=== PATIENT | male | born 1995 | race Caucasian/White ===

== ENCOUNTER 2019-12-31 14:35 | Emergency (ER) | payer MEDICAID, SELFPAY ==
[2019-12-31 18:40] VITALS: BP 137/96; PULSE 125; RESP 18; TEMP 37.1; O2SAT 99
[2019-12-31 18:53] VITALS: BP 112/70; PULSE 80; RESP 18; TEMP 37.3; O2SAT 99; BMI 32.8
--- NOTE | 2019-12-31 20:09 | ED.MALEGU ---
HPI - Male Genitourinary General Chief complaint: Urogenital-Male Stated complaint: penis infection Time Seen by Provider: 12/31/19 20:09 Source: patient Mode of arrival: ambulatory Limitations: no limitations History of Present Illness HPI Narrative: states pain discomfort to the glans of the penis and dry skin around the foreskin. States aside from masturbation he is not sexually active. No urethral discharge, testicular pain or swelling. No lesion. No erythema. States the gland initially had some curd-like discharge between the glans and the foreskin but that improved after his mother gave him hydrocortisone which he has been applying for the past 2 days. Onset (ago): day(s) ( Five days) Related Data Previous Rx's Medication Instructions Recorded hydrocortisone 1 applic TOPICAL BID PRN #28 g 12/31/19 Allergies Allergy/AdvReac Type Severity Reaction Status Date / Time SEASONAL ALLERGIES Allergy Unknown UNKNOWN Uncoded 12/31/19 18:40 Review of Systems Review of Systems: Constitutional: No Weight loss, No Fever, No Chills, No Night Sweats, No Fatigue, No Malaise ENT/Mouth: No Hearing loss, No Ear Pain, No Nasal Congestion, No Sinus Pain, No Hoarseness, No sore throat, No Rhinorrhea, No Swallowing Difficulty Eyes: No Eye Pain, No Swelling, No Redness, No Foreign Body, No Discharge, No Vision Changes Cardiovascular: No Chest Pain, No SOB, No Dyspnea on Exertion, No Orthopnea, No Edema, No Palpitations Respiratory: No Cough, No Sputum, No Wheezing, No Smoke Exposure, No Dyspnea Gastrointestinal: No Nausea, No Vomiting, No Diarrhea, No Constipation, No abdominal Pain, No Hematochezia, No Melena Genitourinary: No Dysuria, No Urinary Frequency, No Hematuria, No Urinary Incontinence, No Urgency, No Flank Pain, No Urinary Flow Changes, No Hesitancy Musculoskeletal: No joint pain, No Myalgias, No Joint Swelling Skin: No Skin Lesions, No rash Neuro: No Weakness, No Numbness, No Paresthesias, No Loss of Consciousness, No Dizziness, No Headache Psych: No Anxiety/Panic, No Depression, No SI/HI/AH/VH, No Social Issues, Heme/Lymph: No Bruising, No Bleeding,No Lymphadenopathy Endocrine: No Polyuria, No Polydipsia, No Temperature Intolerance Yes all other systems are reviewed and are negative PMFSH Past Medical History Attestation statement: The following information was validated with the patient. Medical History (Updated 12/31/19 @ 20:20 by Michael Calderon NP) Depression Schizophrenia Social History Social History Advance Directives: No Advance Directives Information Provided: No Physical Exam Vital Signs: Vital Signs: Vital Signs Temp Pulse Resp BP Pulse Ox 12/31/19 18:53 99.2 F 80 18 112/70 99 12/31/19 18:40 98.7 F 125 H 18 137/96 H 99 Body Mass Index 32.8 Reviewed Const: General: cooperative and healthy appearing; No acute distress or intoxicated appearing Nutritional Appearance: average body habitus Orientation/consciousness: patient oriented x3 HENMT: Head: Yes normal to inspection Ears: hearing grossly normal bilaterally Eyes: General: appearance normal, both eyes and all related structures Visual Magdaleno: normal visual magdaleno by confrontation Chest: Chest palpation & inspection: normal inspection of the chest Resp: Effort & Inspection: normal respiratory effort : General: Yes no CVA tenderness Penis: uncircumcised ( slightly erythematous at the foreskin and when he retracts the gland ) Back/Spine/Pelvis: Back: no CVA tenderness Skin: General skin exam: no rashes or lesions noted Neuro: General: patient oriented x3 Extrem: General: Yes normal to inspection Course Course Course Narrative: AP/ exam consistent with balanitis. Given dose of Diflucan. Will contribute do hygiene/ hydrocortisone at home. Advised to avoid any further masturbation for at least a week and half to 2 weeks until his foreskin improved. No concern for STI and he has not been sexually active with partners. Discharge Plan Discharge Clinical Impression: Balanitis Patient Disposition: Home, Self-Care Instructions: Balanitis (ED) Additional Instructions: hygiene /home care instructions reviewed No masturbation for 2 weeks Topical hydrocortisone cream twice a day for 7 days Return if any concerns or worsening symptoms otherwise schedule follow up with primary care doctor Thank you Prescriptions: New hydrocortisone 1 % cream 1 applic topical BID PRN (Reason: skin irritation) Qty: 28 RF: 1
[2019-12-31] MEDS: Fluconazole 150 MG TABLET PO (20:35)
== END 2019-12-31 20:42 | disposition home or self-care (01) ==
PROVIDERS: Emergency Provider Internal Medicine
DX: N48.1 Balanitis (principal)
CPT/HCPCS: 99283

== ENCOUNTER 2020-07-07 13:44 | Outpatient (REF) | payer MEDICAID, SELFPAY ==
[2020-07-07 14:39] LABS: COVID-19 Test Negative (Negative)
== END 2020-07-07 13:45 | disposition home or self-care (01) ==
LOC: HO.LAB 13:44
PROVIDERS: Visit Provider Internal Medicine
DX: Z20.822 Contact with and (suspected) exposure to COVID-19 (principal)
CPT/HCPCS: 36415; 87635; C9803

== ENCOUNTER 2020-07-14 15:18 | Outpatient (REF) | payer MEDICAID, SELFPAY | END 2020-07-14 15:19 | disposition home or self-care (01) | LOC: HO.LAB 15:18 | PROVIDERS: Visit Provider Internal Medicine | DX: Z20.822 Contact with and (suspected) exposure to COVID-19 (principal) | CPT/HCPCS: C9803; U0003; U0005 ==

== ENCOUNTER 2021-12-03 03:46 | Emergency (ER) | payer MEDICAID, SELFPAY ==
[2021-12-03 04:07] VITALS: BP 142/88; PULSE 88; O2SAT 99
--- NOTE | 2021-12-03 04:16 | ED.PSYCH ---
HPI - Psych General Chief Complaint: Psychiatric Symptoms Stated Complaint: VOLUNTARY CRISIS EVAL PER EMS Time Seen by Provider: 12/03/21 04:17 Source: patient Mode of arrival: EMS Limitations: no limitations History of Present Illness HPI Narrative: wants to talk to crisis, speaking about taoist, holding the bible, making Andrea references complaint: anxiety and hallucinations Onset (ago): day(s) Duration: getting worse History of same: Yes Relieving factors: none Exacerbating factors: none Context: other (schizophrenia) Associated psychiatric symptoms: auditory hallucinations, visual hallucinations and delusions Associated symptoms: denies other symptoms Treatments prior to arrival: none Related Data Previous Rx's Medication Instructions Recorded hydrocortisone 1 % topical cream 1 applic topical BID PRN skin 12/31/19 irritation #28 grams Allergies Allergy/AdvReac Type Severity Reaction Status Date / Time SEASONAL ALLERGIES Allergy Unknown UNKNOWN Uncoded 12/31/19 18:40 Review of Systems Review of Systems: Constitutional : No Fever, No Chills ENT/Mouth : No Ear Pain, No Nasal Congestion, No sore throat Eyes: No Eye Pain, No Swelling, No Redness Cardiovascular : No Chest Pain, No SOB Respiratory : No Cough, No Sputum, No Dyspnea Gastrointestinal : No Nausea, No Vomiting, No Diarrhea, No Hematochezia, No Melena Genitourinary : No Dysuria, No Urinary Frequency, No Hematuria Musculoskeletal : No Myalgias Skin : No Skin Lesions, No rash Neuro : No Weakness, No Numbness, No Paresthesias, No Dizziness, No Headache Psych : positive Anxiety, positive Depression, no SI/HI, pos AH/VH Heme/Lymph: No Lymphadenopathy Endocrine : No Polyuria, No Polydipsia All other systems reviewed and are negative [facility] Past Medical History Attestation statement: The following information was validated with the patient. Medical History Depression Schizophrenia Social History Social History Patient Tobacco Use Status: Never used Tobacco Advance Directives: No Advance Directives Information Provided: No Physical Exam Vital Signs: Vital Signs: Last Vital Signs Temp 98 F 12/03/21 04:17 Pulse 95 12/03/21 04:17 Resp 18 12/03/21 04:17 BP 142/70 H 09/17/22 04:17 Pulse Ox 100 12/03/21 04:17 O2 Del Method 12/03/21 04:17 BMI result Body Mass Index 25.9 Appearance: Alert. Oriented X3. No acute distress. Holding a bible perseverating about people not understanding and suffering. Eyes: Pupils equal, round and reactive to light. ENT: Pharynx normal. Neck: Normal inspection. Neck supple. CVS: Normal heart rate and rhythm. Pulses normal. Respiratory: No respiratory distress. Breath sounds normal. Abdomen: Soft and non-tender. Skin: Skin warm and dry. Normal skin color. Normal skin turgor. Extremities: No lower extremity edema. No calf ttp Neuro: Oriented X 3. No motor deficit. No sensory deficit. CN 2-12 intact Course Course Course Narrative: Physician observation started at 504am Patient placed in physician observation pending N to assess the need for psych admission. At the time observation was started the patient's vitals were stable, patient is alert and oriented, Neuro: nonfocal, CV RRR, Lungs clear MDM - Psych MDM Narrative Medical decision making narrative: 26 yo male with schizophrenia here with c/o being persecuted, AH/VH, being andrea ron - at this time will obtain labs, N consult. Discharge Plan Discharge Clinical Impression: Chronic schizophrenia Patient Disposition: Still a Patient Prescriptions: No Action hydrocortisone 1 % cream 1 applic topical BID PRN (Reason: skin irritation) Qty: 28 1RF
[2021-12-03 04:17] VITALS: BP 142/70; PULSE 95; RESP 18; TEMP 36.6; O2SAT 100; BMI 25.9
[2021-12-03 05:27] LABS: Amphetamine Screen Urine Not Detected (Not Detect); Barbiturates, Urine Not Detected (Not Detect); Benzodiazepines Screen Urine Not Detected (Not Detect); COVID-19 Test Negative (Negative); Cannabinoid Screen Urine Not Detected (Not Detect); Cocaine Screen Urine Not Detected (Not Detect); Fentanyl, urine Not Detected (Not Detect); Opiate Screen Urine Not Detected (Not Detect); Phencyclidine Screen Urine Not Detected (Not Detect)
--- NOTE | 2021-12-03 07:09 | PC.NURSE ---
Report received from RAJI Ward Per night nurse, pt brought in from prison with increased auditory and visual hallucinations and increased pre-occupation with mu-ism concepts. Upon first contact with this pt, this nurse notes he is speaking frequently about Andrea and the bible. Pt speaking with and blessing people walking around. Pt blessed this RN, and stated that he was here to make everything right and safe . Pt walking around but is easily re-directable. Pt stable at this point, will continue to monitor for d/c needs
--- NOTE | 2021-12-03 07:19 | MHC.CARE ---
[employer] sheet submitted
[2021-12-03] MEDS: LORazepam 1 MG TABLET 2 MG PO (07:50)
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
--- NOTE | 2021-12-03 10:07 | PHA.MEDREC ---
Pharmacy Consult ? Medication Reconciliation Pharmacy has completed the medication reconciliation. Patient had a med list with them in file. Cross-referenced with patient. Claim history is outdated compared to med list, however patient attests to taking meds.
[2021-12-03] MEDS: Benztropine Mesylate 1 MG TABLET PO (10:41)
[2021-12-03] MEDS: Loratadine 10 MG TABLET PO (10:41)
[2021-12-03] MEDS: metFORMIN HCl 500 MG TABLET PO (10:41)
[2021-12-03] MEDS: OXcarbazepine 300 MG TABLET PO ×2 (10:41→14:46)
[2021-12-03] MEDS: Perphenazine 8 MG TABLET PO (11:36)
[2021-12-03 15:57] VITALS: RESP 16
--- NOTE | 2021-12-03 16:50 | PC.NURSE ---
Per care team: daniel grijalva is clear to be d/c home to [facility].
== END 2021-12-03 17:04 | disposition home or self-care (01) ==
PROVIDERS: Emergency Provider Emergency Medicine; PCP General Practice
DX: F20.9 Schizophrenia, unspecified (principal); F41.9 Anxiety disorder, unspecified; F32.A Depression, unspecified; Z20.822 Contact with and (suspected) exposure to COVID-19; Z79.899 Other long term (current) drug therapy
CPT/HCPCS: 80307; 87635; 99284; 99285

== ENCOUNTER 2021-12-05 16:57 | Inpatient (IN) | payer OTHER, MEDICAID, SELFPAY ==
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
[2021-12-05 17:31] VITALS: BP 134/93; BP 136/77; PULSE 85; PULSE 86; RESP 16; TEMP 36.4; O2SAT 97; O2SAT 98; BMI 25.0
[2021-12-05 18:39] LABS: MANUAL DIFF FLAG NO
[2021-12-05 18:43] LABS: Basophils Absolute Auto 0.1 X10*3/uL (0.0-0.2); Basophils Percent Auto 0.6 % (0-2); Eosinophils Absolute Auto 0.1 X10*3/uL (0.0-0.4); Eosinophils Percent Auto 1.2 % (0-4); Hematocrit 38.4 % (42.0-52.0); Hemoglobin 13.2 g/dl (14.0-18.0); Imm Gran Abs Auto 0.03 X10*3/uL (0.00-0.03); Imm Gran Pct Auto 0.4 % (0.0-0.4); Lymphocytes Absolute Auto 2.7 X10*3/uL (1.2-4.9); Mean Corpuscular HGB Conc 34.4 g/dl (31.0-36.0); Mean Corpuscular Hemoglobin 29.1 pg (27.0-33.0); Mean Corpuscular Volume 84.6 fL (80.0-98.0); Mean Platelet Volume 8.5 fL (9.4-12.4); Monocytes Absolute Auto 0.7 X10*3/uL (0.1-1.2); Monocytes Percent Auto 8.2 % (2-11); Neutrophils Absolute Auto 4.5 x10*3/uL (2.0-8.3); Neutrophils Percent Auto 55.6 % (45-73); Platelet Count 211 X10*3/uL (160-400); Red Blood Count 4.54 X10*6/uL (4.60-5.80); Red Cell Distribution Width 12.6 % (11.0-16.0)
[2021-12-05 18:56] LABS: COVID-19 Test Positive (Negative)
[2021-12-05 19:03] LABS: Alanine Aminotransferase 20 U/L (0-40); Albumin Level 4.6 g/dL (3.5-5.0); Alkaline Phosphatase 55 U/L (39-117); Anion Gap 14 (12-20); Aspartate Amino Transferase 17 U/L (5-37); Bilirubin Total 0.5 mg/dL (0.0-1.0); Blood Urea Nitrogen 9 mg/dL (9-16); Calcium 9.3 mg/dL (8.4-10.2); Carbon Dioxide 26 mmol/L (22-29); Chloride 96 mmol/L (96-108); Creatinine Clr Calc Pharmacy 138.2; Estimated Glomerular Filt Rate > 60; Ethanol < 10 mg/dL; Glucose Random 114 mg/dL (60-115); Potassium 3.4 mmol/L (3.3-5.1); Sodium 133 mmol/L (135-145); Total Protein 7.3 g/dL (6.5-8.0)
[2021-12-05 19:16] LABS: Amphetamine Screen Urine Not Detected (Not Detect); Barbiturates, Urine Not Detected (Not Detect); Benzodiazepines Screen Urine Not Detected (Not Detect); Cannabinoid Screen Urine Not Detected (Not Detect); Cocaine Screen Urine Not Detected (Not Detect); Fentanyl, urine Not Detected (Not Detect); Opiate Screen Urine Not Detected (Not Detect); Phencyclidine Screen Urine Not Detected (Not Detect)
[2021-12-05 23:16] VITALS: BP 127/64; PULSE 82; RESP 16; TEMP 36.7; O2SAT 99
[2021-12-06] MEDS: LORazepam 1 MG TABLET 2 MG PO ×3 (01:46→22:08)
[2021-12-06] MEDS: OLANZapine 10 MG TABLET PO (01:47)
[2021-12-06] MEDS: HaloperidoL 5 MG TABLET 10 MG PO (05:13)
--- NOTE | 2021-12-06 05:15 | PC.NURSE ---
Patient slept for an hour only, patient is COVID +, patient scream and yells intermittently, thought content grossly paranoid, thought process incoherent and tangential however patient follows direction appropriately/requires constant redirection, Olanzapine 10 mg PO and Ativan 2 mg po administered at 0146 with minimal effect, disposition per [facility] is section 12 inpatient bed search, med rec completed/unable to obtain Invega IM last taken date, pending provider's approval, behavior unpredictable, Haldol 10 mg PO administered at 0513/pending effect, will continue to monitor.
--- NOTE | 2021-12-06 07:44 | PC.NURSE ---
patient appears to remain asleep at present respirations are even and unlabored patiient appears in no distress presently, will continue to monitor for safety.
[2021-12-06 09:16] VITALS: BP 137/85; PULSE 95; RESP 15; TEMP 36.3; O2SAT 100
[2021-12-06] MEDS: Midazolam HCl/PF 2 MG/2 ML VIAL 4 MG IM (11:04)
[2021-12-06 11:24] VITALS: BP 131/76; PULSE 104; RESP 16; TEMP 37; O2SAT 98
[2021-12-06 11:34] VITALS: BP 115/69; PULSE 83; RESP 14; O2SAT 99
[2021-12-06] MEDS: Haloperidol Lactate 5 MG/ML VIAL 10 MG IM (11:34)
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
--- NOTE | 2021-12-06 12:15 | HE.PHANOTE ---
Spoke to Mary ([phone]) who is the clinical coordinator of the [facility], she confirmed pt's last dose of Invega Sustenna was on 11/24/21 and noted we may use her as a contact if needed for anything else.
[2021-12-06 12:21] VITALS: BP 141/64; PULSE 100; RESP 14; O2SAT 100
[2021-12-06] MEDS: Perphenazine 8 MG TABLET PO (12:45)
[2021-12-06] MEDS: HaloperidoL 5 MG TABLET PO ×2 (14:02→22:09)
--- NOTE | 2021-12-06 15:02 | P.CNPS_ITS ---
History of Present Illness Date of Service: t Chief Complaint: section 12 Reason for Consult: Psychosis Sources of Information: patient interviewed, chart reviewed and crisis/core team assessment reviewed HPI Narrative: the patient is a 26-year-old descent male, single, resident of a intermediate who carries a diagnosis of schizophrenia. According to the chart, the patient is on Invega Sustenna monthly and for FENa seen p.o.. Apparently, the patient was noncompliant with his medications for the last week and he decompensated with agitation, psychosis and grandiose delusions. The patient was brought to the emergency room a few days ago and discharged to the intermediate but he came back yesterday with worsening grandiose delusions, agitation, threatening of violence and completely disorganized. On interview the patient stated that he has Minor to take care of all the wishes of the planet, he was intrusive with poor self-awareness, irritable and very disorganized with word salad at times. Past Psychiatric History: Extensive, several admissions into the hospital for psychotic agitation. The patient carries a diagnosis of schizophrenia Medical Evaluation Reviewed: Yes [facility] Medical History Depression Schizophrenia Family History: denies Social History: resident of a intermediate, unable to provide more details since the patient was not cooperative Substance History: denies Trauma History: unknown Diagnostics Vital Signs (24Hr): Vital Signs - 24 hr 12/05/21 17:31 12/05/21 23:16 12/06/21 09:16 Temperature 97.5 F 98.1 F 97.3 F Pulse Rate 85 82 95 Respiratory Rate 16 16 15 Blood Pressure 134/93 H 127/64 137/85 Pulse Oximetry 97 99 100 Oxygen Delivery Method Room Air Room Air Room Air 12/06/21 11:24 12/06/21 11:34 12/06/21 12:21 Temperature 98.6 F Pulse Rate 104 H 83 100 Respiratory Rate 16 14 14 Blood Pressure 131/76 115/69 141/64 H Pulse Oximetry 98 99 100 Oxygen Delivery Method Room Air Room Air Room Air BMI result Body Mass Index 25.0 Labs Results: 12/05/21 18:34 12/05/21 18:34 Labs: Laboratory Results - last 48 hr 12/05/21 12/05/21 12/05/21 18:34 18:34 18:34 WBC 8.0 RBC 4.54 L Hgb 13.2 L Hct 38.4 L MCV 84.6 MCH 29.1 MCHC 34.4 RDW 12.6 Plt Count 211 MPV 8.5 L Immature Gran % (Auto) 0.4 Neut % (Auto) 55.6 Lymph % (Auto) 34.0 [place] % (Auto) 8.2 Eos % (Auto) 1.2 Baso % (Auto) 0.6 Lymph # (Auto) 2.7 [place] # (Auto) 0.7 Eos # (Auto) 0.1 Baso # (Auto) 0.1 Abs Immat Gran (auto) 0.03 Absolute Neuts (auto) 4.5 Absolute Nucleated RBC 0.000 Nucleated RBC % (auto) 0.0 Sodium 133 L Potassium 3.4 Chloride 96 Carbon Dioxide 26 Anion Gap 14 BUN 9 Creatinine 0.79 Estim Creat Clear Calc 138.2 Estimated GFR > 60 Random Glucose 114 Calcium 9.3 Total Bilirubin 0.5 AST 17 ALT 20 Alkaline Phosphatase 55 Total Protein 7.3 Albumin 4.6 Urine Opiates Screen Urine Fentanyl Screen Ur Barbiturates Screen Ur Phencyclidine Scrn Ur Amphetamines Screen U Benzodiazepines Scrn Urine Cocaine Screen U Marijuana (THC) Screen Ethyl Alcohol < 10 COVID-19 (MOUNA) Positive A COVID-19 Clin Com See Note 12/05/21 18:53 WBC RBC Hgb Hct MCV MCH MCHC RDW Plt Count MPV Immature Gran % (Auto) Neut % (Auto) Lymph % (Auto) [place] % (Auto) Eos % (Auto) Baso % (Auto) Lymph # (Auto) [place] # (Auto) Eos # (Auto) Baso # (Auto) Abs Immat Gran (auto) Absolute Neuts (auto) Absolute Nucleated RBC Nucleated RBC % (auto) Sodium Potassium Chloride Carbon Dioxide Anion Gap BUN Creatinine Estim Creat Clear Calc Estimated GFR Random Glucose Calcium Total Bilirubin AST ALT Alkaline Phosphatase Total Protein Albumin Urine Opiates Screen Not Detected Urine Fentanyl Screen Not Detected Ur Barbiturates Screen Not Detected Ur Phencyclidine Scrn Not Detected Ur Amphetamines Screen Not Detected U Benzodiazepines Scrn Not Detected Urine Cocaine Screen Not Detected U Marijuana (THC) Screen Not Detected Ethyl Alcohol COVID-19 (MOUNA) COVID-19 Clin Com Mental Status Exam Mental Status Exam Patient Appearance: Unkempt Patient Orientation: Person and Situation Level of Consciousness: Awake and Restless Patient Behavior: Hyperactive Mood Description: Withdrawn Affect Description: Labile Ability to Follow Directions: Fair Speech Pattern: Rambling and Rapid Hallucinations: Auditory Delusions: Paranoid Ideation and Grandiose Thought Process: Illogical Thought Content: positive for Incoherent Judgement: Poor Medications Medications Current Medications Haloperidol (Haloperidol 5 Mg Tablet) 5 mg PO TID PRN PRN Reason: psychosis Last Admin: 12/06/21 14:02 Dose: 5 mg Lorazepam (Lorazepam 1 Mg Tablet) 2 mg PO TID PRN PRN Reason: anxiety Last Admin: 12/06/21 14:02 Dose: 2 mg Paliperidone Palmitate (Paliperidone Palmitate 234 Mg/1.5 Ml Syringe) 234 mg IM Q28D LUCERO Perphenazine (Perphenazine 8 Mg Tablet) 8 mg PO DAILY PRN PRN Reason: Agitation Last Admin: 12/06/21 12:45 Dose: 8 mg Allergies Allergies Allergy/AdvReac Type Severity Reaction Status Date / Time SEASONAL ALLERGIES Allergy Unknown UNKNOWN Uncoded 12/31/19 18:40 Assessment & Plan Assessment & Plan (1) Chronic schizophrenia: Status: Acute Code(s): F20.9 - Schizophrenia, unspecified (2) Acute psychosis: Status: Acute Code(s): F23 - Brief psychotic disorder (3) COVID-19: Status: Acute Code(s): U07.1 - COVID-19 Plan the patient is a young descent male with a long history of schizophrenia, resident of a intermediate could decompensate on psychotic symptoms since he was noncompliant with treatment for approximately 1 week. It is unclear if he has missed his long-acting injectable last month. At this moment he is grossly psychotic. The patient has tested positive to COVID 19 but he is asymptomatic. Plan 1. Gather collateral information. We need to know if he received his last injection of Invega Sustenna and restart treatment as soon as possible. 2. Continue with your antipsychotics. 3. Add Haldol 5 mg p.o. q.6 hours p.r.n. psychosis. 4. Add Ativan 2 mg p.o. q.6 hours p.r.n. anxiety. 5. The patient has inpatient level of care criteria but his COVID-19 tested positive disposition should being patient when it is safe. I spent __30____ minutes with the patient and/or on the patient floor today, greater than?50% of which was spent counseling/coordinating care. Informed Consent: does not understand
[2021-12-06 21:13] LABS: COVID-19 Test Negative (Negative)
--- NOTE | 2021-12-07 | ECG_ITS ---
Test Reason : medical clearance Blood Pressure : / mmHG Vent. Rate : 094 BPM Atrial Rate : 094 BPM P-R Int : 138 ms QRS Dur : 086 ms QT Int : 344 ms P-R-T Axes : 012 027 012 degrees QTc Int : 430 ms Normal sinus rhythm Normal ECG When compared with ECG of 11-MAR-2018 14:15, No significant change was found Referred By: Diana Renee Electronically Signed By:MALGORZATA AMEZCUA
[2021-12-07 01:34] VITALS: BP 127/74; PULSE 103; RESP 16; TEMP 37.1; O2SAT 97
[2021-12-07] MEDS: LORazepam 1 MG TABLET 2 MG PO ×4 (06:02→14:34)
[2021-12-07] MEDS: HaloperidoL 5 MG TABLET PO ×3 (06:08→18:32)
--- NOTE | 2021-12-07 06:38 | PC.NURSE ---
Patient slept 5 + hours, no distress observed/reported, patient tested covid - however provider ordered to follow quarantine protocol per CDC guideline, patient needs constant redirection to follow quarantine protocol, medication compliant, PRN Haldol 5 mg PO and Ativan 2 mg PO administered at 2208 and 0608 with + effect, thought content paranoid, thought process tangential and incoherent, VSS, will continue to monitor.
--- NOTE | 2021-12-07 07:12 | PC.NURSE ---
patient appears to remain asleep at presdent respirations are even and unlabored patient appears in no distress
[2021-12-07 09:27] LABS: COVID-19 Test Negative (Negative); IDNOW Serial# 9DB6401D
[2021-12-07] MEDS: Perphenazine 8 MG TABLET PO (10:44)
[2021-12-07 11:00] VITALS: BP 134/86; PULSE 115; RESP 17; TEMP 36.7; O2SAT 100
--- NOTE | 2021-12-07 11:56 | PM.PSYCN ---
History of Present Illness Date of Service: 12/07/2021 Chief Complaint: Manic psychotic agitation Reason for Consult: nael Discussed with referring provider: Yes Sources of Information: patient interviewed, chart reviewed and crisis/core team assessment reviewed Additional Sources of Information: HPI Narrative: Interim hx: pt continues to present with grandiose delusions, ranging from thinking he is Andrea, but also that he is Sonic. He reports having a a lot of energy. Pt also thinks females in the ED are flirting with him and want to be romantically involved with him. He denies SI/HI. He is in agreement to take medications. This specification writer called Dr. Dominic Panchal, left message with his MA to call back for further meds trials and hx. Past Psychiatric History: Extensive, several admissions into the hospital for psychotic agitation. The patient carries a diagnosis of schizophrenia [facility] Medical History Depression Schizophrenia Family History: denies Social History: resident of a [facility], unable to provide more details since the patient was not cooperative Trauma History: unknown Diagnostics Vital Signs (24Hr): Vital Signs - 24 hr 12/06/21 12:21 12/07/21 01:34 Temperature 98.7 F Pulse Rate 100 103 H Respiratory Rate 14 16 Blood Pressure 141/64 H 127/74 Pulse Oximetry 100 97 Oxygen Delivery Method Room Air Room Air BMI result Body Mass Index 25.0 Labs Results: 12/05/21 18:34 12/05/21 18:34 Labs: Laboratory Results - last 48 hr 12/05/21 12/05/21 12/05/21 18:34 18:34 18:34 WBC 8.0 RBC 4.54 L Hgb 13.2 L Hct 38.4 L MCV 84.6 MCH 29.1 MCHC 34.4 RDW 12.6 Plt Count 211 MPV 8.5 L Immature Gran % (Auto) 0.4 Neut % (Auto) 55.6 Lymph % (Auto) 34.0 [place] % (Auto) 8.2 Eos % (Auto) 1.2 Baso % (Auto) 0.6 Lymph # (Auto) 2.7 [place] # (Auto) 0.7 Eos # (Auto) 0.1 Baso # (Auto) 0.1 Abs Immat Gran (auto) 0.03 Absolute Neuts (auto) 4.5 Absolute Nucleated RBC 0.000 Nucleated RBC % (auto) 0.0 Sodium 133 L Potassium 3.4 Chloride 96 Carbon Dioxide 26 Anion Gap 14 BUN 9 Creatinine 0.79 Estim Creat Clear Calc 138.2 Estimated GFR > 60 Random Glucose 114 Calcium 9.3 Total Bilirubin 0.5 AST 17 ALT 20 Alkaline Phosphatase 55 Total Protein 7.3 Albumin 4.6 Urine Opiates Screen Urine Fentanyl Screen Ur Barbiturates Screen Ur Phencyclidine Scrn Ur Amphetamines Screen U Benzodiazepines Scrn Urine Cocaine Screen U Marijuana (THC) Screen Ethyl Alcohol < 10 COVID-19 (MOUNA) Positive A COVID-19 Clin Com See Note 12/05/21 12/06/21 12/07/21 18:53 20:48 09:07 WBC RBC Hgb Hct MCV MCH MCHC RDW Plt Count MPV Immature Gran % (Auto) Neut % (Auto) Lymph % (Auto) [place] % (Auto) Eos % (Auto) Baso % (Auto) Lymph # (Auto) [place] # (Auto) Eos # (Auto) Baso # (Auto) Abs Immat Gran (auto) Absolute Neuts (auto) Absolute Nucleated RBC Nucleated RBC % (auto) Sodium Potassium Chloride Carbon Dioxide Anion Gap BUN Creatinine Estim Creat Clear Calc Estimated GFR Random Glucose Calcium Total Bilirubin AST ALT Alkaline Phosphatase Total Protein Albumin Urine Opiates Screen Not Detected Urine Fentanyl Screen Not Detected Ur Barbiturates Screen Not Detected Ur Phencyclidine Scrn Not Detected Ur Amphetamines Screen Not Detected U Benzodiazepines Scrn Not Detected Urine Cocaine Screen Not Detected U Marijuana (THC) Screen Not Detected Ethyl Alcohol COVID-19 (MOUNA) Negative Negative COVID-19 Clin Com See Note See Note Mental Status Exam Mental Status Exam Narrative: Appearance: casually groomed, fair hygiene in NAD Behavior: overly friendly psychomotor:agitation Speech:clear, hyperverbal, pressured rate, loud at times, spontaneous Thought process:flight of ideas Thought content:grandiose delusions of being sonic, Andrea Mood: great Affect: labile SI:none HI:none VH/AH:none Delusions:grandiose delusions Insight/judgment:impaired x 2 Memory/cog: alert, not oriented to situation Medications Medications Current Medications Haloperidol (Haloperidol 5 Mg Tablet) 5 mg PO TID PRN PRN Reason: psychosis Last Admin: 12/07/21 10:58 Dose: 5 mg Lorazepam (Lorazepam 1 Mg Tablet) 2 mg PO TID PRN PRN Reason: anxiety Last Admin: 12/07/21 10:58 Dose: 2 mg Paliperidone Palmitate (Paliperidone Palmitate 234 Mg/1.5 Ml Syringe) 234 mg IM Q28D LUCERO Perphenazine (Perphenazine 8 Mg Tablet) 8 mg PO DAILY PRN PRN Reason: Agitation Last Admin: 12/07/21 10:44 Dose: 8 mg Allergies Allergies Allergy/AdvReac Type Severity Reaction Status Date / Time SEASONAL ALLERGIES Allergy Unknown UNKNOWN Uncoded 12/31/19 18:40 Assessment & Plan Assessment & Plan (1) Bipolar 1 disorder, manic, moderate: Status: Acute Code(s): F31.12 - Bipolar disorder, current episode manic without psychotic features, moderate Plan Mr. hernandez is a 26 year-old male who presents with s/s of nael including increased energy, grandiose delusions, decreased need for sleep, labile mood, flight of ideas. He is currently on paliperidone. will add depakote for nael. called Dr. Dominic Panchal for further hx of med trials. left VM with his MA. PLAN 1. continues to meet inpt level of care for further safety, containment and stabilization- N/care team to find inpt bed. I spent ____25__ minutes with the patient and/or on the patient floor today, greater than?50% of which was spent counseling/coordinating care. Patient educated on: diagnosis Informed Consent: understands
[2021-12-07] MEDS: Divalproex Sodium 250 MG TABLET.DR 750 MG PO ×2 (12:21→20:04)
[2021-12-08 00:52] VITALS: BP 141/78; PULSE 92; RESP 16; TEMP 36.2; O2SAT 100
[2021-12-08] MEDS: HaloperidoL 5 MG TABLET PO ×3 (02:32→20:37)
[2021-12-08] MEDS: LORazepam 1 MG TABLET 2 MG PO ×4 (02:32→20:38)
--- NOTE | 2021-12-08 06:06 | PC.NURSE ---
Patient slept 6 + hours, no distress observed/reported, medication compliant, PRN Haldol 5 mg PO and Ativan 2 mg PO administered at 0232 with + effect, thought content paranoid and religiously preoccupied, thought process tangential and incoherent, behavior non concerning, VSS, disposition section 12 inpatient bed search, will continue to monitor.
[2021-12-08 07:01] VITALS: BP 137/71; PULSE 115; RESP 16; TEMP 36.1; O2SAT 100
[2021-12-08] MEDS: Divalproex Sodium 250 MG TABLET.DR 750 MG PO ×2 (08:06→20:37)
--- NOTE | 2021-12-08 08:08 | PC.NURSE ---
Report received from night nurse RAJI Mcnair. Pt is awake and walking around this am. Pt is continuing to have delusions and auditory hallucinations about himself being God. Pt is easily re-directable. Took morning medication with no issue. will continue to monitor for d/c needs
--- NOTE | 2021-12-08 10:37 | PC.NURSE ---
Pt continuing to pace around, talking in grandiose thoughts about god and the spirits. Pt redirectable with reminders.
--- NOTE | 2021-12-08 11:54 | PC.NURSE ---
Addendum entered by Vania Bateman 12/08/21 11:55: Pt continues to have grandiose thoughts about being god. Pt continues to be easily re-directable with verbal requests Original Note: Pt showered, changed clothes and bed linens
[2021-12-08 23:29] VITALS: BP 129/88; PULSE 98; RESP 17; TEMP 36.6; O2SAT 100
--- NOTE | 2021-12-09 07:15 | PC.NURSE ---
Patient slept 4 and 1/2 hours, medication compliant, behavior non concerning, thought content grossly paranoid and religiously preoccupied, thought content incoherent and tangential, disposition section 12 inpatient bed search, pending PCR for placement, VSS, will continue to monitor.
--- NOTE | 2021-12-09 07:40 | PC.NURSE ---
Report received. PT currently eating breakfast. PT denies complaints, pleasant in interactions. Pt is an inpatient bedsearch.
[2021-12-09] MEDS: Divalproex Sodium 250 MG TABLET.DR 750 MG PO (08:19)
[2021-12-09 09:40] LABS: Adenovirus PCR Not Detected (Not Detect.); Bordetella parapertussis PCR Not Detected (Not Detect.); Bordetella pertussis PCR Not Detected (Not Detect.); Chlamydia pneumoniae PCR Not Detected (Not Detect.); Coronavirus 229E PCR Not Detected (Not Detect.); Coronavirus HKU1 PCR Not Detected (Not Detect.); Coronavirus NL63 PCR Not Detected (Not Detect.); Coronavirus OC43 PCR Not Detected (Not Detect.); Human metapneumovirus PCR Not Detected (Not Detect.); Influenza A PCR Not Detected (Not Detect.); Influenza B PCR Not Detected (Not Detect.); Mycoplasma pneumoniae PCR Not Detected (Not Detect.); Parainfluenza 1 PCR Not Detected (Not Detect.); Parainfluenza 2 PCR Not Detected (Not Detect.); Parainfluenza 3 PCR Not Detected (Not Detect.); Parainfluenza 4 PCR Not Detected (Not Detect.); RSV PCR Not Detected (Not Detect.); Rhino/Enterovirus PCR Not Detected (Not Detect.); SARS-CoV-2 PCR Not Detected (Not Detect.)
[2021-12-09 09:44] VITALS: BP 117/70; PULSE 106; TEMP 37.1; O2SAT 97
--- NOTE | 2021-12-09 10:34 | ECG_ITS ---
Test Reason : on pysch meds Blood Pressure : / mmHG Vent. Rate : 113 BPM Atrial Rate : 113 BPM P-R Int : 122 ms QRS Dur : 082 ms QT Int : 322 ms P-R-T Axes : 047 042 009 degrees QTc Int : 441 ms Sinus tachycardia Otherwise normal ECG When compared with ECG of 07-DEC-2021 09:52, Heart rate has increased Referred By: Terence Calderon Electronically Signed By:MALGORZATA AMEZCUA
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
[2021-12-09] MEDS: HaloperidoL 5 MG TABLET PO (17:28)
[2021-12-09] MEDS: LORazepam 1 MG TABLET 2 MG PO (17:28)
[2021-12-09 18:00] VITALS: BP 120/70; PULSE 133; RESP 18; TEMP 36.6; O2SAT 96
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
[2021-12-10 08:15] VITALS: BP 121/55; PULSE 107; TEMP 36.1
[2021-12-10] MEDS: Divalproex Sodium 250 MG TABLET.DR 750 MG PO ×2 (08:41→20:18)
[2021-12-10 08:45] LABS: MANUAL DIFF FLAG NO
[2021-12-10 08:48] LABS: Basophils Percent Auto 0.6 % (0-2); Eosinophils Absolute Auto 0.1 X10*3/uL (0.0-0.4); Eosinophils Percent Auto 1.9 % (0-4); Hemoglobin 15.1 g/dl (14.0-18.0); Imm Gran Abs Auto 0.03 X10*3/uL (0.00-0.03); Imm Gran Pct Auto 0.4 % (0.0-0.4); Lymphocytes Absolute Auto 2.4 X10*3/uL (1.2-4.9); Lymphocytes Percent Auto 32.9 % (20-40); Mean Corpuscular HGB Conc 32.8 g/dl (31.0-36.0); Mean Corpuscular Hemoglobin 28.5 pg (27.0-33.0); Monocytes Absolute Auto 0.5 X10*3/uL (0.1-1.2); Monocytes Percent Auto 7.3 % (2-11); Neutrophils Absolute Auto 4.1 x10*3/uL (2.0-8.3); Neutrophils Percent Auto 56.9 % (45-73); Platelet Count 241 X10*3/uL (160-400); Red Blood Count 5.29 X10*6/uL (4.60-5.80); Red Cell Distribution Width 12.8 % (11.0-16.0); White Blood Count 7.3 X10*3/uL (4.8-10.8)
[2021-12-10 09:10] LABS: Estimated Average Glucose 111 mg/dL; Hemoglobin A1c % 5.5 %
[2021-12-10 09:16] LABS: Alanine Aminotransferase 28 U/L (0-40); Albumin Level 4.7 g/dL (3.5-5.0); Alkaline Phosphatase 65 U/L (39-117); Anion Gap 16 (12-20); Aspartate Amino Transferase 17 U/L (5-37); Bilirubin Total 0.2 mg/dL (0.0-1.0); Blood Urea Nitrogen 13 mg/dL (9-16); Carbon Dioxide 28 mmol/L (22-29); Chloride 103 mmol/L (96-108); Cholesterol 166 mg/dL; Creatinine Clr Calc Pharmacy 134.8; Estimated Glomerular Filt Rate > 60; Glucose Fasting 132 mg/dL (60-99); HDL Cholesterol 46 mg/dL; LDL Cholesterol Calculated 106 mg/dl; Potassium 4.2 mmol/L (3.3-5.1); Sodium 143 mmol/L (135-145); Total Protein 7.5 g/dL (6.5-8.0); Triglycerides 73 mg/dL
--- NOTE | 2021-12-10 10:39 | P.PNPSI_ITS ---
Subjective Subjective Date of Service: 12/10/21 Reason For Visit: Manic psychotic agitation Interim History: pt remians floridly manic, talking constantly about spiritism, wanting to heal pe ople. Pt intrusive to others, talking to them non-stop, getting in their personal space; however, pt is pleasant and friendly and able to redirected. called [facility] who reports that patient did NOT get Invega Sustenna in ED Mental Status Exam Mental Status Exam Narrative: Pt is alert and oriented; behavior is intermittently cooperative, loud, distracted and with some bizarre behaviors like snapping at the sink; intrusive; patient is not in distress; dressed in casual attire And appropriately groomed; mood is described as Fantastic and affect Expansive; eye contact appropriate; Speech is normal rate, volume and prosody and not pressured; no psychomotor agitation/retardation present; thought process briefly goal oriented but otherwise tangential; Thought content is with delusional content, grandiose thinking and a preoccupation with yarsanism ideas; denies any SI/HI. Endorses auditory hallucinations Patients insight and judgment Impaired Diagnostics Vital Signs (24Hr): Vital Signs - 24 hr 12/09/21 18:00 12/10/21 08:15 Temperature 97.8 F 97 F Pulse Rate 133 H 107 H Respiratory Rate 18 Blood Pressure 120/70 121/55 L Pulse Oximetry 96 Oxygen Delivery Method Room Air BMI result Body Mass Index 25.0 Labs Results: 12/10/21 07:28 12/10/21 07:28 Labs: Laboratory Results - last 48 hr 12/08/21 12/08/21 12/10/21 16:21 17:17 07:28 WBC 7.3 RBC 5.29 Hgb 15.1 Hct 46.0 MCV 87.0 MCH 28.5 MCHC 32.8 RDW 12.8 Plt Count 241 MPV 9.0 L Immature Gran % (Auto) 0.4 Neut % (Auto) 56.9 Lymph % (Auto) 32.9 [place] % (Auto) 7.3 Eos % (Auto) 1.9 Baso % (Auto) 0.6 Lymph # (Auto) 2.4 [place] # (Auto) 0.5 Eos # (Auto) 0.1 Baso # (Auto) 0.0 Abs Immat Gran (auto) 0.03 Absolute Neuts (auto) 4.1 Absolute Nucleated RBC 0.000 Nucleated RBC % (auto) 0.0 Sodium Potassium Chloride Carbon Dioxide Anion Gap BUN Creatinine Estim Creat Clear Calc Estimated GFR Fasting Glucose Estimat Average Glucose Hemoglobin A1c % Calcium Total Bilirubin AST ALT Alkaline Phosphatase Total Protein Albumin Triglycerides Cholesterol LDL Cholesterol, Calc HDL Cholesterol TSH Respiratory Panel Cerda Cancelled See Note Adenovirus (Rapid PCR) Cancelled Not Detected B.pert (TEM-PCR) Cancelled Not Detected B.parapertussis DNA PCR Cancelled Not Detected C. pneumoniae DNA (PCR) Cancelled Not Detected Coronavirus OC43 (PCR) Cancelled Not Detected Coronavirus HKU1 (PCR) Cancelled Not Detected Coronavirus 229E (PCR) Cancelled Not Detected Coronavirus NL63 (PCR) Cancelled Not Detected Human Metapneumovir PCR Cancelled Not Detected Influenza A (RT-PCR) Cancelled Not Detected Influenza B (RT-PCR) Cancelled Not Detected M. pneumoniae (PCR) Cancelled Not Detected Parainfluenza 1 (PCR) Cancelled Not Detected Parainfluenza 2 (PCR) Cancelled Not Detected Parainfluenza 3 (PCR) Cancelled Not Detected Parainfluenza 4 (PCR) Cancelled Not Detected RSV (PCR) Cancelled Not Detected Entero/Rhino (PCR) Cancelled Not Detected SARS-CoV-2 RNA (RT-PCR) Cancelled Not Detected 12/10/21 12/10/21 07:28 07:28 WBC RBC Hgb Hct MCV MCH MCHC RDW Plt Count MPV Immature Gran % (Auto) Neut % (Auto) Lymph % (Auto) [place] % (Auto) Eos % (Auto) Baso % (Auto) Lymph # (Auto) [place] # (Auto) Eos # (Auto) Baso # (Auto) Abs Immat Gran (auto) Absolute Neuts (auto) Absolute Nucleated RBC Nucleated RBC % (auto) Sodium 143 Potassium 4.2 D Chloride 103 Carbon Dioxide 28 Anion Gap 16 BUN 13 Creatinine 0.81 Estim Creat Clear Calc 134.8 Estimated GFR > 60 Fasting Glucose 132 H Estimat Average Glucose 111 Hemoglobin A1c % 5.5 Calcium 10.0 D Total Bilirubin 0.2 AST 17 ALT 28 Alkaline Phosphatase 65 Total Protein 7.5 Albumin 4.7 Triglycerides 73 Cholesterol 166 LDL Cholesterol, Calc 106 HDL Cholesterol 46 TSH 0.40 Respiratory Panel Cerda Adenovirus (Rapid PCR) B.pert (TEM-PCR) B.parapertussis DNA PCR C. pneumoniae DNA (PCR) Coronavirus OC43 (PCR) Coronavirus HKU1 (PCR) Coronavirus 229E (PCR) Coronavirus NL63 (PCR) Human Metapneumovir PCR Influenza A (RT-PCR) Influenza B (RT-PCR) M. pneumoniae (PCR) Parainfluenza 1 (PCR) Parainfluenza 2 (PCR) Parainfluenza 3 (PCR) Parainfluenza 4 (PCR) RSV (PCR) Entero/Rhino (PCR) SARS-CoV-2 RNA (RT-PCR) Medications Medications Current Medications Acetaminophen (Acetaminophen 325 Mg Tablet) 650 mg PO Q6H PRN PRN Reason: Headache/Pain Mild Scale (1-3) Al Hydroxide/Mg Hydroxide (Magnesium Hydrox/Alum Hydrox 30 Ml Oral.Susp) 30 ml PO Q6H PRN PRN Reason: Heartburn/Nausea Divalproex Sodium (Divalproex Sodium 250 Mg Tablet.Dr) 750 mg PO BID [facility] Last Admin: 12/10/21 08:41 Dose: 750 mg Haloperidol (Haloperidol 5 Mg Tablet) 5 mg PO TID PRN PRN Reason: psychosis Last Admin: 12/09/21 17:28 Dose: 5 mg Hydroxyzine HCl (Hydroxyzine Hcl 25 Mg Tablet) 25 mg PO Q6H PRN PRN Reason: Anxiety Lorazepam (Lorazepam 1 Mg Tablet) 2 mg PO TID PRN PRN Reason: anxiety Last Admin: 12/09/21 17:28 Dose: 2 mg Magnesium Hydroxide (Milk Of Magnesia 30 Ml Oral.Susp) 30 ml PO DAILY PRN PRN Reason: Constipation Paliperidone Palmitate (Paliperidone Palmitate 234 Mg/1.5 Ml Syringe) 234 mg IM Q28D [facility] Perphenazine (Perphenazine 4 Mg Tablet) 4 mg PO BEDTIME [facility] Last Admin: 12/09/21 21:04 Dose: Not Given Trazodone HCl (Trazodone Hcl 50 Mg Tablet) 50 mg PO BEDTIME PRN PRN Reason: Insomnia Allergies Allergies Allergy/AdvReac Type Severity Reaction Status Date / Time SEASONAL ALLERGIES Allergy Unknown UNKNOWN Uncoded 12/31/19 18:40 Assessment & Plan Assessment & Plan (1) Schizoaffective disorder: Status: Acute Code(s): F25.9 - Schizoaffective disorder, unspecified Plan Patient is a 26-year-old male, living in a [facility] with history of schizophrenia/schizoaffective (or bipolar) who presents for florid psychotic delusional behavior in the face of discontinuing 1 of his medications for about a week. In the ED, patient was combative, trying to hit staff and needed to be chemically restrained; it was unclear when he last got his Invega Sustenna; he was started on Depakote in the emergency room.. On admission, patientIs floridly psychotic with grandiose, delusional beliefs and preoccupations. History of violence or violent threats when dysregulated. Will admit for safety and medication management 12/10 remains manic, delusional; start on invega 3mg bid Plan CV Pt on 1:1 since intrusive to others Electrical Sign Wirer cannot determine when patient last got Invega Sustenna 234 mg (did not get in ED) so, Started Invega 3mg BID since psychotic and not sure when got Invega Leave perphenazine 4 mg Q.h.s. for 2 more days Started on Depakote 750 mg b.i.d. Will continue to get collateral Will ascertain when patient last received Invega Sustenna I spent minutes with the patient and/or on the patient floor today, greater than?50% of which was spent counseling/coordinating care. Patient educated on: diagnosis Informed Consent: does not understand Reason for contiued inpatient stay Substantial Risk for: inability to function
[2021-12-10] MEDS: Paliperidone ER 3 MG TAB.ER.24 PO ×2 (11:25→20:18)
[2021-12-10 18:00] VITALS: BP 118/76; PULSE 99; RESP 16; TEMP 36.8; O2SAT 99
[2021-12-10] MEDS: Perphenazine 4 MG TABLET PO (20:18)
[2021-12-11] MEDS: Paliperidone ER 3 MG TAB.ER.24 PO (08:47)
[2021-12-11] MEDS: Divalproex Sodium 250 MG TABLET.DR 750 MG PO ×2 (08:47→19:59)
--- NOTE | 2021-12-11 14:17 | HO.PSYCHPN ---
Subjective Subjective Date of Service: 12/11/21 Reason For Visit: Manic psychotic agitation Interim History: Patient remains psychotic, delusional and grandiose, healing people with the snap of his fingers, touching people which is not appreciated and he remains needing to be on a one-to-one. Not able to have a meaningful discussion with patient as he quickly becomes tangential, talking about roman catholic themes and how he is healing people; today he gave abstract writer all his knowledge. Patient did not know the actual date when he got his last Invega Sustenna shot, thinks it was about a month ago and he says that even though he has god he just did not know the date. Mental Status Exam Mental Status Exam Narrative: Pt is alert and oriented; behavior is intermittently cooperative, loud, distracted and with some bizarre behaviors like snapping at the sink; intrusive; patient is not in distress; dressed in casual attire And appropriately groomed; mood is described as Fantastic and affect Expansive; eye contact appropriate; Speech is normal rate, volume and prosody and not pressured; no psychomotor agitation/retardation present; thought process briefly goal oriented but otherwise tangential; Thought content is with delusional content, grandiose thinking and a preoccupation with roman catholic ideas; denies any SI/HI. Endorses auditory hallucinations Patients insight and judgment Impaired Diagnostics Vital Signs (24Hr): Vital Signs - 24 hr 12/10/21 18:00 Temperature 98.2 F Pulse Rate 99 Respiratory Rate 16 Blood Pressure 118/76 Pulse Oximetry 99 Oxygen Delivery Method Room Air BMI result Body Mass Index 25.0 Labs Results: 12/10/21 07:28 12/10/21 07:28 Labs: Laboratory Results - last 48 hr 12/10/21 12/10/21 12/10/21 07:28 07:28 07:28 WBC 7.3 RBC 5.29 Hgb 15.1 Hct 46.0 MCV 87.0 MCH 28.5 MCHC 32.8 RDW 12.8 Plt Count 241 MPV 9.0 L Immature Gran % (Auto) 0.4 Neut % (Auto) 56.9 Lymph % (Auto) 32.9 [place] % (Auto) 7.3 Eos % (Auto) 1.9 Baso % (Auto) 0.6 Lymph # (Auto) 2.4 [place] # (Auto) 0.5 Eos # (Auto) 0.1 Baso # (Auto) 0.0 Abs Immat Gran (auto) 0.03 Absolute Neuts (auto) 4.1 Absolute Nucleated RBC 0.000 Nucleated RBC % (auto) 0.0 Sodium 143 Potassium 4.2 D Chloride 103 Carbon Dioxide 28 Anion Gap 16 BUN 13 Creatinine 0.81 Estim Creat Clear Calc 134.8 Estimated GFR > 60 Fasting Glucose 132 H Estimat Average Glucose 111 Hemoglobin A1c % 5.5 Calcium 10.0 D Total Bilirubin 0.2 AST 17 ALT 28 Alkaline Phosphatase 65 Total Protein 7.5 Albumin 4.7 Triglycerides 73 Cholesterol 166 LDL Cholesterol, Calc 106 HDL Cholesterol 46 TSH 0.40 Medications Medications Current Medications Acetaminophen (Acetaminophen 325 Mg Tablet) 650 mg PO Q6H PRN PRN Reason: Headache/Pain Mild Scale (1-3) Al Hydroxide/Mg Hydroxide (Magnesium Hydrox/Alum Hydrox 30 Ml Oral.Susp) 30 ml PO Q6H PRN PRN Reason: Heartburn/Nausea Clonazepam (Clonazepam 1 Mg Tablet) 1 mg PO BID@0900,1400 [facility] Clonazepam (Clonazepam 1 Mg Tablet) 1 mg PO ONCE ONE Stop: 12/11/21 14:15 Divalproex Sodium (Divalproex Sodium 250 Mg Tablet.Dr) 750 mg PO BID [facility] Last Admin: 12/11/21 08:47 Dose: 750 mg Haloperidol (Haloperidol 5 Mg Tablet) 5 mg PO TID PRN PRN Reason: psychosis Last Admin: 12/09/21 17:28 Dose: 5 mg Hydroxyzine HCl (Hydroxyzine Hcl 25 Mg Tablet) 25 mg PO Q6H PRN PRN Reason: Anxiety Lorazepam (Lorazepam 1 Mg Tablet) 2 mg PO TID PRN PRN Reason: anxiety Last Admin: 12/09/21 17:28 Dose: 2 mg Magnesium Hydroxide (Milk Of Magnesia 30 Ml Oral.Susp) 30 ml PO DAILY PRN PRN Reason: Constipation Paliperidone (Paliperidone Er 3 Mg Tab.Er.24) 3 mg PO BID [facility] Last Admin: 12/11/21 08:47 Dose: 3 mg Paliperidone Palmitate (Paliperidone Palmitate 234 Mg/1.5 Ml Syringe) 234 mg IM Q28D [facility] Perphenazine (Perphenazine 4 Mg Tablet) 4 mg PO BEDTIME [facility] Stop: 12/11/21 23:50 Last Admin: 12/10/21 20:18 Dose: 4 mg Trazodone HCl (Trazodone Hcl 50 Mg Tablet) 50 mg PO BEDTIME PRN PRN Reason: Insomnia Allergies Allergies Allergy/AdvReac Type Severity Reaction Status Date / Time SEASONAL ALLERGIES Allergy Unknown UNKNOWN Uncoded 12/31/19 18:40 Assessment & Plan Assessment & Plan (1) Schizoaffective disorder: Status: Acute Code(s): F25.9 - Schizoaffective disorder, unspecified Plan Patient is a 26-year-old male, living in a retirement with history of schizophrenia/schizoaffective (or bipolar) who presents for florid psychotic delusional behavior in the face of discontinuing 1 of his medications for about a week. In the ED, patient was combative, trying to hit staff and needed to be chemically restrained; it was unclear when he last got his Invega Sustenna; he was started on Depakote in the emergency room.. On admission, patientIs floridly psychotic with grandiose, delusional beliefs and preoccupations. History of violence or violent threats when dysregulated. Will admit for safety and medication management 12/10 remains manic, delusional; start on invega 3mg bid 12/11 remains manic, delusional and grandiose; he is pleasant and friendly but intrusive to others and needs to remain on a one-to-one he is touching people that clearly do not want to be touched. Patient says he has not gotten Invega Sustenna for a month; tomorrow Try to contact retirement and find out when he actually did get it and if he is due. Plan CV Pt on 1:1 since intrusive to others Started clonazepam 1 mg b.i.d. to help subdue his manic symptoms Started on Depakote 750 mg b.i.d. Ordered labs on Depakote level Blower Insulator Has not yet determined when patient last got Invega Sustenna 234 mg (did not get in ED) so, Increase to Invega 4mg BID since psychotic and not sure when got Invega Leave perphenazine 4 mg Q.h.s. for 2 days then DC Will continue to get collateral I spent minutes with the patient and/or on the patient floor today, greater than?50% of which was spent counseling/coordinating care. Patient educated on: diagnosis and medication risk/benefits Informed Consent: understands and does not understand Reason for contiued inpatient stay Substantial Risk for: inability to function and rapid decompensation
[2021-12-11] MEDS: clonazePAM 1 MG TABLET PO (15:33)
[2021-12-11 18:00] VITALS: BP 124/59; PULSE 88; RESP 16; TEMP 36.7; O2SAT 97
[2021-12-11] MEDS: Perphenazine 4 MG TABLET PO (19:59)
[2021-12-11] MEDS: Paliperidone ER 3 MG TAB.ER.24 4 MG PO (20:00)
[2021-12-12 08:08] VITALS: BP 126/57; PULSE 93; TEMP 36
[2021-12-12 08:17] LABS: Ammonia 74 umol/L (13-55)
[2021-12-12 08:26] LABS: Alanine Aminotransferase 26 U/L (0-40); Albumin Level 4.5 g/dL (3.5-5.0); Alkaline Phosphatase 62 U/L (39-117); Aspartate Amino Transferase 15 U/L (5-37); Bilirubin Direct 0.2 mg/dL (0.0-0.5); Bilirubin Total 0.5 mg/dL (0.0-1.0); Total Protein 7.1 g/dL (6.5-8.0)
[2021-12-12 08:36] LABS: Valproate 84.7 mcg/mL (50.0-100.0)
[2021-12-12] MEDS: clonazePAM 1 MG TABLET PO ×2 (09:04→13:05)
[2021-12-12] MEDS: Divalproex Sodium 250 MG TABLET.DR 750 MG PO ×2 (09:04→21:50)
--- NOTE | 2021-12-12 10:35 | P.PNPSI_ITS ---
Subjective Subjective Date of Service: 12/12/21 Reason For Visit: Manic psychotic agitation Interim History: Patient remains floridly psychotic and delusional, thinking is got. He keeps sn apping his fingers trying to heal people. He is friendly and approaches people to be friendly but he is intrusive and invades people's personal space and privacy; perhaps a little less than this weekend. That said he is easily redirected, though repeats the behaviors soon. Today he told me the manager social services had 21 wings on her back. When data analyst report writer said he could not see them he snapped his finger and said he will see them now. When data analyst report writer still did not see them he did it again but eventually accepted that it was not going to happen for this data analyst report writer. Team attempting to contact retirement to see about when he last got his Invega dose. Mental Status Exam Mental Status Exam Narrative: Pt is alert and oriented; behavior is intermittently cooperative, loud, distracted and with some bizarre behaviors like snapping at the sink; intrusive; patient is not in distress; dressed in casual attire And appropriately groomed; mood is described as Fantastic and affect Expansive; eye contact appropriate; Speech is normal rate, volume and prosody and not pressured; no psychomotor agitation/retardation present; thought process briefly goal oriented but otherwise tangential; Thought content is with delusional content, grandiose thinking and a preoccupation with voodoo ideas; denies any SI/HI. Endorses auditory hallucinations Patients insight and judgment Impaired Diagnostics Vital Signs (24Hr): Vital Signs - 24 hr 12/11/21 18:00 12/12/21 08:08 Temperature 98.1 F 96.8 F Pulse Rate 88 93 Respiratory Rate 16 Blood Pressure 124/59 L 126/57 L Pulse Oximetry 97 Oxygen Delivery Method Room Air BMI result Body Mass Index 25.0 Labs Results: 12/10/21 07:28 12/10/21 07:28 Labs: Laboratory Results - last 48 hr 12/12/21 12/12/21 08:01 08:01 Total Bilirubin 0.5 Direct Bilirubin 0.2 AST 15 ALT 26 Alkaline Phosphatase 62 Ammonia 74 H Total Protein 7.1 Albumin 4.5 Valproic Acid 84.7 Medications Medications Current Medications Acetaminophen (Acetaminophen 325 Mg Tablet) 650 mg PO Q6H PRN PRN Reason: Headache/Pain Mild Scale (1-3) Al Hydroxide/Mg Hydroxide (Magnesium Hydrox/Alum Hydrox 30 Ml Oral.Susp) 30 ml PO Q6H PRN PRN Reason: Heartburn/Nausea Clonazepam (Clonazepam 1 Mg Tablet) 1 mg PO BID@0900,1400 [facility] Last Admin: 12/12/21 09:04 Dose: 1 mg Divalproex Sodium (Divalproex Sodium 250 Mg Tablet.Dr) 750 mg PO BID [facility] Last Admin: 12/12/21 09:04 Dose: 750 mg Haloperidol (Haloperidol 5 Mg Tablet) 5 mg PO TID PRN PRN Reason: psychosis Last Admin: 12/09/21 17:28 Dose: 5 mg Hydroxyzine HCl (Hydroxyzine Hcl 25 Mg Tablet) 25 mg PO Q6H PRN PRN Reason: Anxiety Lorazepam (Lorazepam 1 Mg Tablet) 2 mg PO TID PRN PRN Reason: anxiety Last Admin: 12/09/21 17:28 Dose: 2 mg Magnesium Hydroxide (Milk Of Magnesia 30 Ml Oral.Susp) 30 ml PO DAILY PRN PRN Reason: Constipation Paliperidone (Paliperidone Er 6 Mg Tab.Er.24) 6 mg PO BID [facility] Paliperidone (Paliperidone Er 6 Mg Tab.Er.24) 6 mg PO ONCE ONE Stop: 12/12/21 10:34 Paliperidone Palmitate (Paliperidone Palmitate 234 Mg/1.5 Ml Syringe) 234 mg IM Q28D [facility] Trazodone HCl (Trazodone Hcl 50 Mg Tablet) 50 mg PO BEDTIME PRN PRN Reason: Insomnia Allergies Allergies Allergy/AdvReac Type Severity Reaction Status Date / Time SEASONAL ALLERGIES Allergy Unknown UNKNOWN Uncoded 12/31/19 18:40 Assessment & Plan Assessment & Plan (1) Schizoaffective disorder: Status: Acute Code(s): F25.9 - Schizoaffective disorder, unspecified Plan Patient is a 26-year-old male, living in a retirement with history of schizophrenia/schizoaffective (or bipolar) who presents for florid psychotic delusional behavior in the face of discontinuing 1 of his medications for about a week. In the ED, patient was combative, trying to hit staff and needed to be chemically restrained; it was unclear when he last got his Invega Sustenna; he was started on Depakote in the emergency room.. On admission, patientIs floridly psychotic with grandiose, delusional beliefs and preoccupations. History of violence or violent threats when dysregulated. Will admit for safety and medication management 12/10 remains manic, delusional; start on invega 3mg bid 12/11 remains manic, delusional and grandiose; he is pleasant and friendly but intrusive to others and needs to remain on a one-to-one he is touching people that clearly do not want to be touched. Patient says he has not gotten Invega Sustenna for a month; tomorrow Try to contact retirement and find out when he actually did get it and if he is due. 12/12 remains manic, delusional and grandiose; is still intrusive to others needing frequent redirection. However he is friendly. Need more collateral Valproic acid level is therapeutic however ammonia is mildly elevated at 74. Will probably lower Depakote dose as hyper ammonia could be contributing to confusion; however doing so can also increase manic symptoms Plan CV Off one-to-one for time being; still intrusive to others but a little less so Started clonazepam 1 mg b.i.d. to help subdue his manic symptoms Will likely Lower to Depakote 500 in the morning and 750 at bedtime due to mild hyper ammonia At 750 mg b.i.d. Ordered labs on Depakote level Hydro Plant Operator Has not yet determined when patient last got Invega Sustenna 234 mg (did not get in ED) so, Increase to Invega 6mg BID since psychotic and not sure when got Invega (4 mg not available). Leave perphenazine 4 mg Q.h.s. for 2 days then DC Will continue to get collateral I spent minutes with the patient and/or on the patient floor today, greater than?50% of which was spent counseling/coordinating care. Patient educated on: diagnosis Informed Consent: does not understand Reason for contiued inpatient stay Substantial Risk for: inability to function
[2021-12-12] MEDS: Paliperidone ER 6 MG TAB.ER.24 PO ×2 (11:01→21:50)
[2021-12-12 21:00] VITALS: BP 103/55; PULSE 102; RESP 18; TEMP 36.1; O2SAT 98
[2021-12-13 08:01] VITALS: BP 139/77; PULSE 107; TEMP 36.6
[2021-12-13] MEDS: Paliperidone ER 6 MG TAB.ER.24 PO (09:01)
[2021-12-13] MEDS: clonazePAM 1 MG TABLET PO ×2 (09:01→13:19)
[2021-12-13] MEDS: Divalproex Sodium 250 MG TABLET.DR 750 MG PO (09:01)
--- NOTE | 2021-12-13 10:14 | P.PNPSI_ITS ---
Subjective Subjective Date of Service: 12/13/21 Reason For Visit: Manic psychotic agitation Interim History: pt remains floridly delusional, trying to heal nearly everyone who walks by by s napping his fingers; he is friendly but intrusive and no insight Mental Status Exam Mental Status Exam Narrative: Pt is alert and oriented; behavior is intermittently cooperative, but mostly distracted and with some bizarre behaviors like snapping at the sink; intrusive; patient is not in distress; dressed in casual attire And appropriately groomed; mood is described as Fantastic and affect Expansive; eye contact appropriate; Speech is normal rate, volume and prosody and not pressured; no psychomotor agitation/retardation present; thought process briefly goal oriented but otherw ise tangential; Thought content is with delusional content, grandiose thinking and a preoccupation with zoroastrian ideas; denies any SI/HI. Endorses auditory hallucinations Patients insight and judgment Impaired Diagnostics Vital Signs (24Hr): Vital Signs - 24 hr 12/12/21 21:00 12/13/21 08:01 Temperature 97 F 97.8 F Pulse Rate 102 H 107 H Respiratory Rate 18 Blood Pressure 103/55 L 139/77 Pulse Oximetry 98 Oxygen Delivery Method Room Air BMI result Body Mass Index 25.0 Labs Results: 12/10/21 07:28 12/10/21 07:28 Labs: Laboratory Results - last 48 hr 12/12/21 12/12/21 08:01 08:01 Total Bilirubin 0.5 Direct Bilirubin 0.2 AST 15 ALT 26 Alkaline Phosphatase 62 Ammonia 74 H Total Protein 7.1 Albumin 4.5 Valproic Acid 84.7 Medications Medications Current Medications Acetaminophen (Acetaminophen 325 Mg Tablet) 650 mg PO Q6H PRN PRN Reason: Headache/Pain Mild Scale (1-3) Al Hydroxide/Mg Hydroxide (Magnesium Hydrox/Alum Hydrox 30 Ml Oral.Susp) 30 ml PO Q6H PRN PRN Reason: Heartburn/Nausea Clonazepam (Clonazepam 1 Mg Tablet) 1 mg PO BID@0900,1400 [facility] Last Admin: 12/13/21 09:01 Dose: 1 mg Divalproex Sodium (Divalproex Sodium 250 Mg Tablet.) 750 mg PO BID [facility] Last Admin: 12/13/21 09:01 Dose: 750 mg Haloperidol (Haloperidol 5 Mg Tablet) 5 mg PO TID PRN PRN Reason: psychosis Last Admin: 12/09/21 17:28 Dose: 5 mg Hydroxyzine HCl (Hydroxyzine Hcl 25 Mg Tablet) 25 mg PO Q6H PRN PRN Reason: Anxiety Lorazepam (Lorazepam 1 Mg Tablet) 2 mg PO TID PRN PRN Reason: anxiety Last Admin: 12/09/21 17:28 Dose: 2 mg Magnesium Hydroxide (Milk Of Magnesia 30 Ml Oral.Susp) 30 ml PO DAILY PRN PRN Reason: Constipation Paliperidone (Paliperidone Er 6 Mg Tab.Er.24) 6 mg PO BID [facility] Last Admin: 12/13/21 09:01 Dose: 6 mg Paliperidone Palmitate (Paliperidone Palmitate 234 Mg/1.5 Ml Syringe) 234 mg IM Q28D [facility] Trazodone HCl (Trazodone Hcl 50 Mg Tablet) 50 mg PO BEDTIME PRN PRN Reason: Insomnia Allergies Allergies Allergy/AdvReac Type Severity Reaction Status Date / Time SEASONAL ALLERGIES Allergy Unknown UNKNOWN Uncoded 12/31/19 18:40 Assessment & Plan Assessment & Plan (1) Schizoaffective disorder: Status: Acute Code(s): F25.9 - Schizoaffective disorder, unspecified Plan Patient is a 26-year-old male, living in a detention with history of schizophrenia/schizoaffective (or bipolar) who presents for florid psychotic delusional behavior in the face of discontinuing 1 of his medications for about a week. In the ED, patient was combative, trying to hit staff and needed to be chemically restrained; it was unclear when he last got his Invega Sustenna; he was started on Depakote in the emergency room.. On admission, patientIs floridly psychotic with grandiose, delusional beliefs and preoccupations. History of violence or violent threats when dysregulated. Will admit for safety and medication management 12/10 remains manic, delusional; start on invega 3mg bid 12/11 remains manic, delusional and grandiose; he is pleasant and friendly but intrusive to others and needs to remain on a one-to-one he is touching people that clearly do not want to be touched. Patient says he has not gotten Invega Sustenna for a month; tomorrow Try to contact detention and find out when he actually did get it and if he is due. 12/12 remains manic, delusional and grandiose; is still intrusive to others needing frequent redirection. However he is friendly. Need more collateral Valproic acid level is therapeutic however ammonia is mildly elevated at 74. Will probably lower Depakote dose as hyper ammonia could be contributing to confusion; however doing so can also increase manic symptoms 12/13 remains floridly delusional; at least not aggressive at all. Collateral reports he's never been dysregulated to this degree. Hx of schizoaffective and ASD. Has been taking meds and last got Invega 11/24/21. Historical report from admission 2019 shows patient was stabilized on ox carbamazepine 300 mg t.i.d., Invega Sustenna 156 mg, Ativan 1 mg b.i.d. and perphenazine 8 mg b.i.d.. Also on Cogentin Plan CV q15 clonazepam 1 mg b.i.d. to help subdue his manic symptoms Will taper and dc Depakote since increases Ammonia; did not stop delusions but did seem to curb agression on 11/24/21 Got invega Susenna 234 mg will dc invega PO and continue and increase perphenazine Titrate Perhpenazine to 8mg BID Start Oxcarbazepine 300mg BID; likely titrate to TID Start Cogentin 0.5mg BID Will continue to get collateral I spent minutes with the patient and/or on the patient floor today, greater than?50% of which was spent counseling/coordinating care. Patient educated on: diagnosis and medication risk/benefits Informed Consent: does not understand and further education needed Reason for contiued inpatient stay Substantial Risk for: inability to function and rapid decompensation
[2021-12-13 14:41] LABS: Appearance Urine Clear; Color Urine Yellow; Glucose Urine UA Negative (Negative); Leukocyte Esterase Urine Negative (Negative); Nitrite Urine Negative (Negative); PH 7.5 (5.0-9.0); Specific Gravity - Urine 1.015 (1.005-1.025); Urine Blood Negative (Negative); Urine Ketones Trace mg/dL (Negative); Urine Protein Negative (Neg-Trace)
[2021-12-13 14:44] LABS: Bacteria Urine None Seen (None Seen); Hyaline Casts Urine 0-2 /LPF (0-2); RBC Urine 0-2 /HPF (0-2); Squamous Epithelial Cell Urine 0-2 /HPF (0-2); WBC Urine 0-5 /HPF (0-5)
[2021-12-13 18:00] VITALS: BP 126/65; PULSE 106
[2021-12-13] MEDS: Perphenazine 4 MG TABLET PO (20:34)
[2021-12-14 06:00] VITALS: BP 122/65; PULSE 85; RESP 16; TEMP 36.2; O2SAT 100
[2021-12-14 06:35] LABS: OBS Int Ctl Valid YES; OBS1 NEGATIVE (NEGATIVE)
[2021-12-14] MEDS: clonazePAM 1 MG TABLET PO ×2 (09:19→13:07)
[2021-12-14] MEDS: Divalproex Sodium 500 MG TABLET.DR PO (09:19)
[2021-12-14] MEDS: Perphenazine 4 MG TABLET PO (09:19)
--- NOTE | 2021-12-14 10:23 | HO.PSYCHPN ---
Subjective Subjective Date of Service: 12/14/21 Reason For Visit: Manic psychotic agitation Interim History: Patient continues to be happily delusional, healing people, given people his knowledge, reading people's minds. Briefly Discussed medication changes and patient agrees In a moment of clarity, patient was able to talk with mortgage or loan underwriter a little about his past. He shared that he grew up [employer] but became a question last year and that his passion is to talk about God with people. Mental Status Exam Mental Status Exam Narrative: Pt is alert and oriented; behavior is intermittently cooperative, but mostly distracted and with some bizarre behaviors like snapping at the sink; intrusive; patient is not in distress; dressed in casual attire And appropriately groomed; mood is described as Fantastic and affect Expansive; eye contact appropriate; Speech is normal rate, volume and prosody and not pressured; no psychomotor agitation/retardation present; thought process briefly goal oriented but otherwise tangential; Thought content is with delusional content, grandiose thinking and a preoccupation with nondenominational ideas; denies any SI/HI. Endorses auditory hallucinations Patients insight and judgment Impaired Diagnostics Vital Signs (24Hr): Vital Signs - 24 hr 12/13/21 18:00 12/14/21 06:00 Temperature 97.2 F Pulse Rate 106 H 85 Respiratory Rate 16 Blood Pressure 126/65 122/65 Pulse Oximetry 100 Oxygen Delivery Method Room Air BMI result Body Mass Index 25.0 Labs Results: 12/10/21 07:28 12/10/21 07:28 Labs: Laboratory Results - last 48 hr 12/13/21 12/14/21 Unknown 06:16 Urine Color Yellow Urine Appearance Clear Urine pH 7.5 Ur Specific [place] 1.015 Urine Protein Negative Urine Glucose (UA) Negative Urine Ketones Trace Urine Blood Negative Urine Nitrite Negative Ur Leukocyte Esterase Negative Urine RBC 0-2 Urine WBC 0-5 Ur Squamous Epith Cells 0-2 Urine Bacteria None Seen Hyaline Casts 0-2 Stool Occult Blood NEGATIVE Medications Medications Current Medications Acetaminophen (Acetaminophen 325 Mg Tablet) 650 mg PO Q6H PRN PRN Reason: Headache/Pain Mild Scale (1-3) Al Hydroxide/Mg Hydroxide (Magnesium Hydrox/Alum Hydrox 30 Ml Oral.Susp) 30 ml PO Q6H PRN PRN Reason: Heartburn/Nausea Benztropine Mesylate (Benztropine Mesylate 0.5 Mg Tablet) 0.5 mg PO BID [facility] Clonazepam (Clonazepam 1 Mg Tablet) 1 mg PO BID@0900,1400 [facility] Last Admin: 12/14/21 09:19 Dose: 1 mg Hydroxyzine HCl (Hydroxyzine Hcl 25 Mg Tablet) 25 mg PO Q6H PRN PRN Reason: Anxiety Magnesium Hydroxide (Milk Of Magnesia 30 Ml Oral.Susp) 30 ml PO DAILY PRN PRN Reason: Constipation Oxcarbazepine (Oxcarbazepine 300 Mg Tablet) 300 mg PO BID [facility] Paliperidone Palmitate (Paliperidone Palmitate 234 Mg/1.5 Ml Syringe) 234 mg IM Q28D [facility] Perphenazine (Perphenazine 8 Mg Tablet) 8 mg PO BID [facility] Trazodone HCl (Trazodone Hcl 50 Mg Tablet) 50 mg PO BEDTIME PRN PRN Reason: Insomnia Allergies Allergies Allergy/AdvReac Type Severity Reaction Status Date / Time SEASONAL ALLERGIES Allergy Unknown UNKNOWN Uncoded 12/31/19 18:40 Assessment & Plan Assessment & Plan (1) Schizoaffective disorder: Status: Acute Code(s): F25.9 - Schizoaffective disorder, unspecified Plan Patient is a 26-year-old male, living in a senior care with history of schizophrenia/schizoaffective (or bipolar) who presents for florid psychotic delusional behavior in the face of discontinuing 1 of his medications for about a week. In the ED, patient was combative, trying to hit staff and needed to be chemically restrained; it was unclear when he last got his Invega Sustenna; he was started on Depakote in the emergency room.. On admission, patientIs floridly psychotic with grandiose, delusional beliefs and preoccupations. History of violence or violent threats when dysregulated. Will admit for safety and medication management 12/10 remains manic, delusional; start on invega 3mg bid 12/11 remains manic, delusional and grandiose; he is pleasant and friendly but intrusive to others and needs to remain on a one-to-one he is touching people that clearly do not want to be touched. Patient says he has not gotten Invega Sustenna for a month; tomorrow Try to contact senior care and find out when he actually did get it and if he is due. 12/12 remains manic, delusional and grandiose; is still intrusive to others needing frequent redirection. However he is friendly. Need more collateral Valproic acid level is therapeutic however ammonia is mildly elevated at 74. Will probably lower Depakote dose as hyper ammonia could be contributing to confusion; however doing so can also increase manic symptoms 12/13 remains floridly delusional; at least not aggressive at all. Collateral reports he's never been dysregulated to this degree. Hx of schizoaffective and ASD. Has been taking meds and last got Invega 11/24/21. Historical report from admission 2019 shows patient was stabilized on ox carbamazepine 300 mg t.i.d., Invega Sustenna 156 mg, Ativan 1 mg b.i.d. and perphenazine 8 mg b.i.d.. Also on Cogentin 12/14 No change Plan CV q15 Lower to clonazepam 0.5 mg b.i.d. to help subdue his manic symptoms Will taper and dc Depakote since increases Ammonia; did not stop delusions but did seem to curb agression on 11/24/21 Got invega Susenna 234 mg will dc invega PO and continue and increase perphenazine Titrate Perhpenazine to 8mg BID Start Oxcarbazepine 300mg BID; likely titrate to TID Start Cogentin 0.5mg BID Will continue to get collateral I spent minutes with the patient and/or on the patient floor today, greater than?50% of which was spent counseling/coordinating care. Patient educated on: diagnosis and medication risk/benefits Informed Consent: further education needed Reason for contiued inpatient stay Substantial Risk for: inability to function and rapid decompensation
[2021-12-14] MEDS: OXcarbazepine 300 MG TABLET PO ×2 (10:34→19:18)
[2021-12-14] MEDS: Ibuprofen 600 MG TABLET PO (14:54)
[2021-12-14 17:19] VITALS: BP 121/67; PULSE 98; RESP 16; TEMP 36.4; O2SAT 98
[2021-12-14] MEDS: Perphenazine 8 MG TABLET PO (19:18)
[2021-12-14] MEDS: Benztropine Mesylate 0.5 MG TABLET PO (19:19)
[2021-12-15 07:00] VITALS: BMI 25.3
[2021-12-15 08:48] VITALS: BP 117/58; PULSE 88; RESP 16; O2SAT 98
[2021-12-15] MEDS: clonazePAM 0.5 MG TABLET PO ×2 (09:02→13:58)
[2021-12-15] MEDS: OXcarbazepine 300 MG TABLET PO ×3 (09:02→20:22)
[2021-12-15] MEDS: Divalproex Sodium 250 MG TABLET.DR PO (09:02)
[2021-12-15] MEDS: Benztropine Mesylate 0.5 MG TABLET PO ×2 (09:02→20:22)
[2021-12-15] MEDS: Perphenazine 8 MG TABLET PO ×2 (09:02→20:22)
--- NOTE | 2021-12-15 10:17 | HO.PSYCHPN ---
Subjective Subjective Date of Service: 12/15/21 Reason For Visit: Manic psychotic agitation Interim History: Patient remains manic and delusional, thinking he has got, and trying to heal people by snapping of fingers, giving them knowledge making prophecies. Received information well that he does not have a UTI; also says no longer any blood on the toilet paperand script writer explained occult stool negative. Patient shared some the things he is interested which include Anime, going outside, cartoons. Patient also said that for some reason he was off Trileptal for several days. Strategic Manager explained that he is on it now. Mental Status Exam Mental Status Exam Narrative: Pt is alert and oriented; behavior is intermittently cooperative, but mostly distracted and with some bizarre behaviors like snapping at the sink; intrusive; patient is not in distress; dressed in casual attire And appropriately groomed; mood is described as Fantastic and affect Expansive; eye contact appropriate; Speech is normal rate, volume and prosody and not pressured; no psychomotor agitation/retardation present; thought process briefly goal oriented but otherwise tangential; Thought content is with delusional content, grandiose thinking and a preoccupation with mormon ideas; denies any SI/HI. Endorses auditory hallucinations Patients insight and judgment Impaired Diagnostics Vital Signs (24Hr): Vital Signs - 24 hr 12/14/21 17:19 12/15/21 08:48 Temperature 97.5 F Pulse Rate 98 88 Respiratory Rate 16 16 Blood Pressure 121/67 117/58 L Pulse Oximetry 98 98 Oxygen Delivery Method Room Air Room Air BMI result Body Mass Index 25.3 Labs Results: 12/10/21 07:28 12/10/21 07:28 Labs: Laboratory Results - last 48 hr 12/13/21 12/14/21 Unknown 06:16 Urine Color Yellow Urine Appearance Clear Urine pH 7.5 Ur Specific [place] 1.015 Urine Protein Negative Urine Glucose (UA) Negative Urine Ketones Trace Urine Blood Negative Urine Nitrite Negative Ur Leukocyte Esterase Negative Urine RBC 0-2 Urine WBC 0-5 Ur Squamous Epith Cells 0-2 Urine Bacteria None Seen Hyaline Casts 0-2 Stool Occult Blood NEGATIVE Medications Medications Current Medications Acetaminophen (Acetaminophen 325 Mg Tablet) 650 mg PO Q6H PRN PRN Reason: Headache/Pain Mild Scale (1-3) Al Hydroxide/Mg Hydroxide (Magnesium Hydrox/Alum Hydrox 30 Ml Oral.Susp) 30 ml PO Q6H PRN PRN Reason: Heartburn/Nausea Benztropine Mesylate (Benztropine Mesylate 0.5 Mg Tablet) 0.5 mg PO BID [facility] Last Admin: 12/15/21 09:02 Dose: 0.5 mg Clonazepam (Clonazepam 0.5 Mg Tablet) 0.5 mg PO BID@0900,1400 [facility] Last Admin: 12/15/21 09:02 Dose: 0.5 mg Divalproex Sodium (Divalproex Sodium 250 Mg Tablet.Dr) 250 mg PO DAILY [facility] Last Admin: 12/15/21 09:02 Dose: 250 mg Hydroxyzine HCl (Hydroxyzine Hcl 25 Mg Tablet) 25 mg PO Q6H PRN PRN Reason: Anxiety Ibuprofen (Ibuprofen 600 Mg Tablet) 600 mg PO Q8H PRN PRN Reason: Pain, Mild (Pain Scale 1-3) Magnesium Hydroxide (Milk Of Magnesia 30 Ml Oral.Susp) 30 ml PO DAILY PRN PRN Reason: Constipation Oxcarbazepine (Oxcarbazepine 300 Mg Tablet) 300 mg PO TID [facility] Paliperidone Palmitate (Paliperidone Palmitate 234 Mg/1.5 Ml Syringe) 234 mg IM Q28D [facility] Perphenazine (Perphenazine 8 Mg Tablet) 8 mg PO BID [facility] Last Admin: 12/15/21 09:02 Dose: 8 mg Trazodone HCl (Trazodone Hcl 50 Mg Tablet) 50 mg PO BEDTIME PRN PRN Reason: Insomnia Allergies Allergies Allergy/AdvReac Type Severity Reaction Status Date / Time SEASONAL ALLERGIES Allergy Unknown UNKNOWN Uncoded 12/31/19 18:40 Assessment & Plan Assessment & Plan (1) Schizoaffective disorder: Status: Acute Code(s): F25.9 - Schizoaffective disorder, unspecified Plan Patient is a 26-year-old male, living in a half-way with history of schizophrenia/schizoaffective (or bipolar) who presents for florid psychotic delusional behavior in the face of discontinuing 1 of his medications for about a week. In the ED, patient was combative, trying to hit staff and needed to be chemically restrained; it was unclear when he last got his Invega Sustenna; he was started on Depakote in the emergency room.. On admission, patientIs floridly psychotic with grandiose, delusional beliefs and preoccupations. History of violence or violent threats when dysregulated. Will admit for safety and medication management 12/10 remains manic, delusional; start on invega 3mg bid 12/11 remains manic, delusional and grandiose; he is pleasant and friendly but intrusive to others and needs to remain on a one-to-one he is touching people that clearly do not want to be touched. Patient says he has not gotten Invega Sustenna for a month; tomorrow Try to contact half-way and find out when he actually did get it and if he is due. 12/12 remains manic, delusional and grandiose; is still intrusive to others needing frequent redirection. However he is friendly. Need more collateral Valproic acid level is therapeutic however ammonia is mildly elevated at 74. Will probably lower Depakote dose as hyper ammonia could be contributing to confusion; however doing so can also increase manic symptoms 12/13 remains floridly delusional; at least not aggressive at all. Collateral reports he's never been dysregulated to this degree. Hx of schizoaffective and ASD. Has been taking meds and last got Invega 11/24/21. Historical report from admission 2019 shows patient was stabilized on ox carbamazepine 300 mg t.i.d., Invega Sustenna 156 mg, Ativan 1 mg b.i.d. and perphenazine 8 mg b.i.d.. Also on Cogentin 12/14 No change Plan CV q15 Lower to clonazepam 0.5 mg b.i.d. to help subdue his manic symptoms invega Susenna 234 mg due 12/22 (last got on 11/24/21) Perhpenazine to 8mg BID INCREASE to Oxcarbazepine 300mg TID; home dose Cogentin 0.5mg BID (home med) DC depakote Will continue to get collateral I spent minutes with the patient and/or on the patient floor today, greater than?50% of which was spent counseling/coordinating care. Patient educated on: diagnosis and medication risk/benefits Informed Consent: understands, does not understand and further education needed Reason for contiued inpatient stay Substantial Risk for: inability to function
[2021-12-15 16:15] VITALS: BP 116/55; PULSE 88; RESP 16; TEMP 36.4; O2SAT 97
[2021-12-16] MEDS: clonazePAM 0.5 MG TABLET PO ×2 (08:05→14:30)
[2021-12-16] MEDS: OXcarbazepine 300 MG TABLET PO ×3 (08:05→19:46)
[2021-12-16] MEDS: Perphenazine 8 MG TABLET PO ×2 (08:05→19:45)
[2021-12-16] MEDS: Benztropine Mesylate 0.5 MG TABLET PO ×2 (08:05→19:46)
[2021-12-16 08:10] VITALS: BP 128/74; PULSE 108; RESP 18; TEMP 37.1; O2SAT 98
--- NOTE | 2021-12-16 15:08 | HO.PSYCHPN ---
Subjective Subjective Date of Service: 12/16/21 Reason For Visit: Manic psychotic agitation Interim History: Patient remains floridly psychotic grandiose thinking he is Andrea Reza blessing people healing people not overly aggressive Mental Status Exam Mental Status Exam Narrative: Patient somewhat expansive in manner speech not overly pressured grandiose somewhat euphoric stating he is Andrea Reza repeatedly wanting to make blessings Stas wishes snapping his fingers religiously preoccupied distracted was not threatening denied SI Diagnostics Vital Signs (24Hr): Vital Signs - 24 hr 12/15/21 16:15 12/16/21 08:10 Temperature 97.5 F 98.7 F Pulse Rate 88 108 H Respiratory Rate 16 18 Blood Pressure 116/55 L 128/74 Pulse Oximetry 97 98 Oxygen Delivery Method Room Air Room Air BMI result Body Mass Index 25.3 Labs Results: 12/10/21 07:28 12/10/21 07:28 Medications Medications Current Medications Acetaminophen (Acetaminophen 325 Mg Tablet) 650 mg PO Q6H PRN PRN Reason: Headache/Pain Mild Scale (1-3) Al Hydroxide/Mg Hydroxide (Magnesium Hydrox/Alum Hydrox 30 Ml Oral.Susp) 30 ml PO Q6H PRN PRN Reason: Heartburn/Nausea Benztropine Mesylate (Benztropine Mesylate 0.5 Mg Tablet) 0.5 mg PO BID [facility] Last Admin: 12/16/21 08:05 Dose: 0.5 mg Clonazepam (Clonazepam 0.5 Mg Tablet) 0.5 mg PO BID@0900,1400 [facility] Last Admin: 12/16/21 14:30 Dose: 0.5 mg Hydroxyzine HCl (Hydroxyzine Hcl 25 Mg Tablet) 25 mg PO Q6H PRN PRN Reason: Anxiety Ibuprofen (Ibuprofen 600 Mg Tablet) 600 mg PO Q8H PRN PRN Reason: Pain, Mild (Pain Scale 1-3) Magnesium Hydroxide (Milk Of Magnesia 30 Ml Oral.Susp) 30 ml PO DAILY PRN PRN Reason: Constipation Oxcarbazepine (Oxcarbazepine 300 Mg Tablet) 300 mg PO TID [facility] Last Admin: 12/16/21 14:31 Dose: 300 mg Paliperidone Palmitate (Paliperidone Palmitate 234 Mg/1.5 Ml Syringe) 234 mg IM Q28D [facility] Perphenazine (Perphenazine 8 Mg Tablet) 8 mg PO BID [facility] Last Admin: 12/16/21 08:05 Dose: 8 mg Trazodone HCl (Trazodone Hcl 50 Mg Tablet) 50 mg PO BEDTIME PRN PRN Reason: Insomnia Allergies Allergies Allergy/AdvReac Type Severity Reaction Status Date / Time SEASONAL ALLERGIES Allergy Unknown UNKNOWN Uncoded 12/31/19 18:40 Assessment & Plan Assessment & Plan (1) Schizoaffective disorder: Status: Acute Code(s): F25.9 - Schizoaffective disorder, unspecified Plan Patient is a 26-year-old male, living in a residential with history of schizophrenia/schizoaffective (or bipolar) who presents for florid psychotic delusional behavior in the face of discontinuing 1 of his medications for about a week. In the ED, patient was combative, trying to hit staff and needed to be chemically restrained; it was unclear when he last got his Invega Sustenna; he was started on Depakote in the emergency room.. On admission, patientIs floridly psychotic with grandiose, delusional beliefs and preoccupations. History of violence or violent threats when dysregulated. Will admit for safety and medication management 12/10 remains manic, delusional; start on invega 3mg bid 12/11 remains manic, delusional and grandiose; he is pleasant and friendly but intrusive to others and needs to remain on a one-to-one he is touching people that clearly do not want to be touched. Patient says he has not gotten Invega Sustenna for a month; tomorrow Try to contact residential and find out when he actually did get it and if he is due. 12/12 remains manic, delusional and grandiose; is still intrusive to others needing frequent redirection. However he is friendly. Need more collateral Valproic acid level is therapeutic however ammonia is mildly elevated at 74. Will probably lower Depakote dose as hyper ammonia could be contributing to confusion; however doing so can also increase manic symptoms 12/13 remains floridly delusional; at least not aggressive at all. Collateral reports he's never been dysregulated to this degree. Hx of schizoaffective and ASD. Has been taking meds and last got Invega 11/24/21. Historical report from admission 2018 shows patient was stabilized on ox carbamazepine 300 mg t.i.d., Invega Sustenna 156 mg, Ativan 1 mg b.i.d. and perphenazine 8 mg b.i.d.. Also on Cogentin 12/14 No change Plan CV q15 Lower to clonazepam 0.5 mg b.i.d. to help subdue his manic symptoms invega Susenna 234 mg due 12/22 (last got on 11/24/21) Perhpenazine to 8mg BID INCREASE to Oxcarbazepine 300mg TID; home dose Cogentin 0.5mg BID (home med) DC depakote Will continue to get collateral 12/16/2021 Continue current plan of care patient on ox carb seen Invega sustena back on perphenazine remains grossly grandiose not reality based engagement I spent minutes with the patient and/or on the patient floor today, greater than?50% of which was spent counseling/coordinating care. Reason for contiued inpatient stay Substantial Risk for: inability to function and rapid decompensation
[2021-12-16 17:00] VITALS: BP 135/62; PULSE 89; TEMP 36.8
[2021-12-17] MEDS: OXcarbazepine 300 MG TABLET PO ×3 (08:14→20:19)
[2021-12-17] MEDS: Perphenazine 8 MG TABLET PO ×2 (08:14→20:19)
[2021-12-17] MEDS: clonazePAM 0.5 MG TABLET PO ×2 (08:14→14:20)
[2021-12-17] MEDS: Benztropine Mesylate 0.5 MG TABLET PO ×2 (08:14→20:19)
[2021-12-17 08:16] VITALS: BP 115/56; PULSE 90; RESP 18; TEMP 36.2; O2SAT 97
--- NOTE | 2021-12-17 15:50 | P.PNPSI_ITS ---
Subjective Subjective Date of Service: 12/17/21 Reason For Visit: Manic psychotic agitation Subjective Notes: Conditional Voluntary Healthcare Proxy: No Guardianship: No Medical Problems Affecting Mental Status: No Interim History: Pt associated wiseness to provider due to color of hair, continues to say he has a calling to help others and will get up from sleep to help them then blew air out of his mouth toward provider- like wind Medication Compliance: Yes Side effects from medications: No Attending Groups: Intermittent Review of Systems Acute medical concerns: No Medical Review of Systems: unchanged Mental Status Exam Mental Status Exam Patient Appearance: Well Grooomed and Appropriate Patient Orientation: Person, Place, Time and Situation Level of Consciousness: Awake, Appropriate and Alert Patient Behavior: Talkative, Restless, Good Eye Contact and Impulsive Mood Description: Euphoric Affect Description: Elated Patient Cognition Impaired: No Ability to Follow Directions: Fair Speech Pattern: Clear, Rambling, Animated and Pressured Delusions: Grandiose Thought Process: Racing and Distracted Thought Content: positive for Flight of Ideas Abnormal Motor Activity Signs and Symptoms: Hyperactivity Judgement: Poor Judgement and Insight: no insight, blowing in provider's face- Diagnostics Vital Signs (24Hr): Vital Signs - 24 hr 12/16/21 17:00 12/17/21 08:16 Temperature 98.3 F 97.1 F Pulse Rate 89 90 Respiratory Rate 18 Blood Pressure 135/62 115/56 L Pulse Oximetry 97 Oxygen Delivery Method Room Air BMI result Body Mass Index 25.3 Labs Results: 12/10/21 07:28 12/10/21 07:28 Medications Medications Current Medications Acetaminophen (Acetaminophen 325 Mg Tablet) 650 mg PO Q6H PRN PRN Reason: Headache/Pain Mild Scale (1-3) Al Hydroxide/Mg Hydroxide (Magnesium Hydrox/Alum Hydrox 30 Ml Oral.Susp) 30 ml PO Q6H PRN PRN Reason: Heartburn/Nausea Benztropine Mesylate (Benztropine Mesylate 0.5 Mg Tablet) 0.5 mg PO BID [facility] Last Admin: 12/17/21 08:14 Dose: 0.5 mg Clonazepam (Clonazepam 0.5 Mg Tablet) 0.5 mg PO BID@0900,1400 [facility] Last Admin: 12/17/21 14:20 Dose: 0.5 mg Hydroxyzine HCl (Hydroxyzine Hcl 25 Mg Tablet) 25 mg PO Q6H PRN PRN Reason: Anxiety Ibuprofen (Ibuprofen 600 Mg Tablet) 600 mg PO Q8H PRN PRN Reason: Pain, Mild (Pain Scale 1-3) Magnesium Hydroxide (Milk Of Magnesia 30 Ml Oral.Susp) 30 ml PO DAILY PRN PRN Reason: Constipation Oxcarbazepine (Oxcarbazepine 300 Mg Tablet) 300 mg PO TID [facility] Last Admin: 12/17/21 14:20 Dose: 300 mg Paliperidone Palmitate (Paliperidone Palmitate 234 Mg/1.5 Ml Syringe) 234 mg IM Q28D [facility] Perphenazine (Perphenazine 8 Mg Tablet) 8 mg PO BID [facility] Last Admin: 12/17/21 08:14 Dose: 8 mg Trazodone HCl (Trazodone Hcl 50 Mg Tablet) 50 mg PO BEDTIME PRN PRN Reason: Insomnia Allergies Allergies Allergy/AdvReac Type Severity Reaction Status Date / Time SEASONAL ALLERGIES Allergy Unknown UNKNOWN Uncoded 12/31/19 18:40 Assessment & Plan Assessment & Plan (1) Schizoaffective disorder: Status: Acute Code(s): F25.9 - Schizoaffective disorder, unspecified Assessment and Plan: ongoing treatment of disorganized nael Plan Patient is a 26-year-old male, living in a intermediate with history of schizophrenia/schizoaffective (or bipolar) who presents for florid psychotic delusional behavior in the face of discontinuing 1 of his medications for about a week. In the ED, patient was combative, trying to hit staff and needed to be chemically restrained; it was unclear when he last got his Invega Sustenna; he was started on Depakote in the emergency room.. On admission, patientIs floridly psychotic with grandiose, delusional beliefs and preoccupations. History of violence or violent threats when dysregulated. Will admit for safety and medication management 12/10 remains manic, delusional; start on invega 3mg bid 12/11 remains manic, delusional and grandiose; he is pleasant and friendly but intrusive to others and needs to remain on a one-to-one he is touching people that clearly do not want to be touched. Patient says he has not gotten Invega Sustenna for a month; tomorrow Try to contact intermediate and find out when he actually did get it and if he is due. 12/12 remains manic, delusional and grandiose; is still intrusive to others needing frequent redirection. However he is friendly. Need more collateral Valproic acid level is therapeutic however ammonia is mildly elevated at 74. Will probably lower Depakote dose as hyper ammonia could be contributing to confusion; however doing so can also increase manic symptoms 12/13 remains floridly delusional; at least not aggressive at all. Collateral reports he's never been dysregulated to this degree. Hx of schizoaffective and ASD. Has been taking meds and last got Invega 11/24/21. Historical report from admission 2018 shows patient was stabilized on ox carbamazepine 300 mg t.i.d., Invega Sustenna 156 mg, Ativan 1 mg b.i.d. and perphenazine 8 mg b.i.d.. Also on Cogentin 12/14 No change Plan CV q15 Lower to clonazepam 0.5 mg b.i.d. to help subdue his manic symptoms invega Susenna 234 mg due 12/22 (last got on 11/24/21) Perhpenazine to 8mg BID INCREASE to Oxcarbazepine 300mg TID; home dose Cogentin 0.5mg BID (home med) DC depakote Will continue to get collateral 12/16/2021 Continue current plan of care patient on ox carb seen Invroma sustena back on perphenazine remains grossly grandiose not reality based engagement I spent minutes with the patient and/or on the patient floor today, greater than?50% of which was spent counseling/coordinating care. Patient educated on: medication risk/benefits Informed Consent: further education needed Reason for contiued inpatient stay Substantial Risk for: rapid decompensation
[2021-12-17 17:53] VITALS: BP 129/72; PULSE 104; RESP 20; TEMP 36.8; O2SAT 97
[2021-12-17 18:00] VITALS: BP 129/72; PULSE 104; RESP 20; TEMP 36.8; O2SAT 97
[2021-12-18] MEDS: Milk of Magnesia 30 ML ORAL.SUSP PO (03:50)
[2021-12-18] MEDS: OXcarbazepine 300 MG TABLET PO ×3 (08:09→21:20)
[2021-12-18] MEDS: Perphenazine 8 MG TABLET PO ×2 (08:09→21:20)
[2021-12-18] MEDS: clonazePAM 0.5 MG TABLET PO (08:09)
[2021-12-18] MEDS: Benztropine Mesylate 0.5 MG TABLET PO ×2 (08:09→21:20)
[2021-12-18 08:10] VITALS: BP 124/61; PULSE 102; RESP 18; TEMP 36.4; O2SAT 97
--- NOTE | 2021-12-18 11:53 | HO.PSYCHPN ---
Subjective Subjective Date of Service: 12/18/21 Reason For Visit: Manic psychotic agitation Subjective Notes: 3 Day Healthcare Proxy: No Guardianship: No Medical Problems Affecting Mental Status: No Interim History: look me in the eyes , I am marty velasquez , did you see my eyes change color Pt continues intrussive with other patients, provoking angry responses from patients due to inability of pt to stop being intrussive on others boundaries Pt has no insight - I will take my medications for your need When told would inc benzodiazepine due to manic behaviora and add med for sleep and psychosis. Medication Compliance: Yes Side effects from medications: No Attending Groups: No (too intrussive) Review of Systems Acute medical concerns: No Mental Status Exam Mental Status Exam Patient Appearance: Disheveled Patient Orientation: Person, Place, Time and Situation Level of Consciousness: Awake and Alert Patient Behavior: Talkative, Hyperactive, Invasion - Personal Space, Distractible and Impulsive Mood Description: Euphoric and Expansive Affect Description: Elated Ability to Follow Directions: Poor Speech Pattern: Clear, Rapid, Excessive, Pressured and Excited Delusions: Grandiose (believes he is marty, believes he is getting message from people at night to help) Thought Process: Illogical Thought Content: positive for Flight of Ideas and positive for Preoccupation (god/marty) Abnormal Motor Activity Signs and Symptoms: Hyperactivity Judgement: Poor Diagnostics Vital Signs (24Hr): Vital Signs - 24 hr 12/17/21 17:53 12/17/21 18:00 12/18/21 08:10 Temperature 98.2 F 98.2 F 97.5 F Pulse Rate 104 H 104 H 102 H Respiratory Rate 20 20 18 Blood Pressure 129/72 129/72 124/61 Pulse Oximetry 97 97 97 Oxygen Delivery Method Room Air Room Air Room Air BMI result Body Mass Index 25.3 Labs Results: 12/10/21 07:28 12/10/21 07:28 Medications Medications Current Medications Acetaminophen (Acetaminophen 325 Mg Tablet) 650 mg PO Q6H PRN PRN Reason: Headache/Pain Mild Scale (1-3) Al Hydroxide/Mg Hydroxide (Magnesium Hydrox/Alum Hydrox 30 Ml Oral.Susp) 30 ml PO Q6H PRN PRN Reason: Heartburn/Nausea Benztropine Mesylate (Benztropine Mesylate 0.5 Mg Tablet) 0.5 mg PO BID [facility] Last Admin: 10/02/22 08:09 Dose: 0.5 mg Clonazepam (Clonazepam 0.5 Mg Tablet) 0.5 mg PO BID@0900,1400 [facility] Last Admin: 12/18/21 08:09 Dose: 0.5 mg Hydroxyzine HCl (Hydroxyzine Hcl 25 Mg Tablet) 25 mg PO Q6H PRN PRN Reason: Anxiety Ibuprofen (Ibuprofen 600 Mg Tablet) 600 mg PO Q8H PRN PRN Reason: Pain, Mild (Pain Scale 1-3) Magnesium Hydroxide (Milk Of Magnesia 30 Ml Oral.Susp) 30 ml PO DAILY PRN PRN Reason: Constipation Last Admin: 12/18/21 03:50 Dose: 30 ml Oxcarbazepine (Oxcarbazepine 300 Mg Tablet) 300 mg PO TID [facility] Last Admin: 12/18/21 08:09 Dose: 300 mg Paliperidone Palmitate (Paliperidone Palmitate 234 Mg/1.5 Ml Syringe) 234 mg IM Q28D [facility] Perphenazine (Perphenazine 8 Mg Tablet) 8 mg PO BID [facility] Last Admin: 12/18/21 08:09 Dose: 8 mg Trazodone HCl (Trazodone Hcl 50 Mg Tablet) 50 mg PO BEDTIME PRN PRN Reason: Insomnia Allergies Allergies Allergy/AdvReac Type Severity Reaction Status Date / Time SEASONAL ALLERGIES Allergy Unknown UNKNOWN Uncoded 12/31/19 18:40 Assessment & Plan Assessment & Plan (1) Schizoaffective disorder: Status: Acute Code(s): F25.9 - Schizoaffective disorder, unspecified Assessment and Plan: ongoing treatment of disorganized nael Plan Patient is a 26-year-old male, living in a halfway with history of schizophrenia/schizoaffective (or bipolar) who presents for florid psychotic delusional behavior in the face of discontinuing 1 of his medications for about a week. In the ED, patient was combative, trying to hit staff and needed to be chemically restrained; it was unclear when he last got his Invega Sustenna; he was started on Depakote in the emergency room.. On admission, patientIs floridly psychotic with grandiose, delusional beliefs and preoccupations. History of violence or violent threats when dysregulated. Will admit for safety and medication management 12/10 remains manic, delusional; start on invega 3mg bid 12/11 remains manic, delusional and grandiose; he is pleasant and friendly but intrusive to others and needs to remain on a one-to-one he is touching people that clearly do not want to be touched. Patient says he has not gotten Invega Sustenna for a month; tomorrow Try to contact halfway and find out when he actually did get it and if he is due. 12/12 remains manic, delusional and grandiose; is still intrusive to others needing frequent redirection. However he is friendly. Need more collateral Valproic acid level is therapeutic however ammonia is mildly elevated at 74. Will probably lower Depakote dose as hyper ammonia could be contributing to confusion; however doing so can also increase manic symptoms 12/13 remains floridly delusional; at least not aggressive at all. Collateral reports he's never been dysregulated to this degree. Hx of schizoaffective and ASD. Has been taking meds and last got Invega 11/24/21. Historical report from admission 2018 shows patient was stabilized on ox carbamazepine 300 mg t.i.d., Invega Sustenna 156 mg, Ativan 1 mg b.i.d. and perphenazine 8 mg b.i.d.. Also on Cogentin 12/14 No change Plan CV q15 Lower to clonazepam 0.5 mg b.i.d. to help subdue his manic symptoms invega Susenna 234 mg due 12/22 (last got on 11/24/21) Perhpenazine to 8mg BID INCREASE to Oxcarbazepine 300mg TID; home dose Cogentin 0.5mg BID (home med) DC depakote Will continue to get collateral 12/16/2021 Continue current plan of care patient on ox carb seen Invega sustena back on perphenazine remains grossly grandiose not reality based engagement nc clonazepam to help nael 1m tid and olanzapine at night for sleep or prn psychtoic nael I spent minutes with the patient and/or on the patient floor today, greater than?50% of which was spent counseling/coordinating care. Patient educated on: medication risk/benefits Informed Consent: further education needed Reason for contiued inpatient stay Substantial Risk for: inability to function and rapid decompensation
[2021-12-18] MEDS: clonazePAM 1 MG TABLET PO (14:03)
[2021-12-18 21:04] VITALS: BP 119/56; PULSE 95; RESP 16; TEMP 36.6
[2021-12-18] MEDS: OLANZapine 5 MG TABLET PO (21:20)
[2021-12-19 06:00] VITALS: BP 142/65; PULSE 95; RESP 20; TEMP 36.6; O2SAT 98
[2021-12-19] MEDS: hydrOXYzine HCL 25 MG TABLET PO (06:26)
--- NOTE | 2021-12-19 07:59 | PC.NURSE ---
Pt refused morning bloodwork. notified.
[2021-12-19] MEDS: Perphenazine 8 MG TABLET PO ×2 (08:21→18:51)
[2021-12-19] MEDS: Benztropine Mesylate 0.5 MG TABLET PO ×2 (08:21→18:50)
[2021-12-19] MEDS: clonazePAM 1 MG TABLET PO ×2 (08:21→15:03)
[2021-12-19] MEDS: OXcarbazepine 300 MG TABLET PO ×3 (08:21→18:50)
--- NOTE | 2021-12-19 12:13 | P.PNPSI_ITS ---
Subjective Subjective Date of Service: 12/19/21 Reason For Visit: Manic psychotic agitation Interim History: Remains grandiose, delusional and disorganized,; very intrusive to others diffic ult to redirect. Sleep is interrupted Mental Status Exam Mental Status Exam Narrative: Pt is alert and oriented; behavior is intermittently cooperative, but mostly distracted and with some bizarre behaviors like snapping at people to cure them or give them knowledge; intrusive; patient is not in distress; dressed in casual attire And appropriately groomed; mood is described as Fantastic and affect Expansive; eye contact appropriate; Speech is normal rate, volume and prosody and not pressured; no psychomotor agitation/retardation present; thought process briefly goal oriented but otherwise tangential; Thought content is with delusional content, grandiose thinking and a preoccupation with yazidi ideas; denies any SI/HI. Endorses auditory hallucinations Patients insight and judgment Impaired Diagnostics Vital Signs (24Hr): Vital Signs - 24 hr 12/18/21 21:04 12/19/21 06:00 Temperature 98 F 97.9 F Pulse Rate 95 95 Respiratory Rate 16 20 Blood Pressure 119/56 L 142/65 H Pulse Oximetry 98 Oxygen Delivery Method Room Air BMI result Body Mass Index 25.3 Labs Results: 12/10/21 07:28 12/10/21 07:28 Medications Medications Current Medications Acetaminophen (Acetaminophen 325 Mg Tablet) 650 mg PO Q6H PRN PRN Reason: Headache/Pain Mild Scale (1-3) Al Hydroxide/Mg Hydroxide (Magnesium Hydrox/Alum Hydrox 30 Ml Oral.Susp) 30 ml PO Q6H PRN PRN Reason: Heartburn/Nausea Benztropine Mesylate (Benztropine Mesylate 0.5 Mg Tablet) 0.5 mg PO BID [facility] Last Admin: 12/19/21 08:21 Dose: 0.5 mg Clonazepam (Clonazepam 1 Mg Tablet) 1 mg PO BID@0900,1400 [facility] Last Admin: 12/19/21 08:21 Dose: 1 mg Hydroxyzine HCl (Hydroxyzine Hcl 25 Mg Tablet) 25 mg PO Q6H PRN PRN Reason: Anxiety Last Admin: 12/19/21 06:26 Dose: 25 mg Ibuprofen (Ibuprofen 600 Mg Tablet) 600 mg PO Q8H PRN PRN Reason: Pain, Mild (Pain Scale 1-3) Magnesium Hydroxide (Milk Of Magnesia 30 Ml Oral.Susp) 30 ml PO DAILY PRN PRN Reason: Constipation Last Admin: 12/18/21 03:50 Dose: 30 ml Olanzapine (Olanzapine 5 Mg Tablet) 5 mg PO BEDTIME MRX1 [facility] Last Admin: 12/19/21 03:23 Dose: Not Given Oxcarbazepine (Oxcarbazepine 300 Mg Tablet) 300 mg PO TID [facility] Last Admin: 12/19/21 08:21 Dose: 300 mg Paliperidone Palmitate (Paliperidone Palmitate 234 Mg/1.5 Ml Syringe) 234 mg IM Q28D [facility] Perphenazine (Perphenazine 8 Mg Tablet) 8 mg PO BID [facility] Last Admin: 12/19/21 08:21 Dose: 8 mg Allergies Allergies Allergy/AdvReac Type Severity Reaction Status Date / Time SEASONAL ALLERGIES Allergy Unknown UNKNOWN Uncoded 12/31/19 18:40 Assessment & Plan Assessment & Plan (1) Schizoaffective disorder: Status: Acute Code(s): F25.9 - Schizoaffective disorder, unspecified Assessment and Plan: ongoing treatment of disorganized nael Plan Patient is a 26-year-old male, living in a detention with history of schizophrenia/schizoaffective (or bipolar) who presents for florid psychotic delusional behavior in the face of discontinuing 1 of his medications for about a week. In the ED, patient was combative, trying to hit staff and needed to be chemically restrained; it was unclear when he last got his Invega Sustenna; he was started on Depakote in the emergency room.. On admission, patientIs floridly psychotic with grandiose, delusional beliefs and preoccupations. History of violence or violent threats when dysregulated. Will admit for safety and medication management 12/10 remains manic, delusional; start on invega 3mg bid 12/11 remains manic, delusional and grandiose; he is pleasant and friendly but intrusive to others and needs to remain on a one-to-one he is touching people that clearly do not want to be touched. Patient says he has not gotten Invega Sustenna for a month; tomorrow Try to contact detention and find out when he actually did get it and if he is due. 12/12 remains manic, delusional and grandiose; is still intrusive to others needing frequent redirection. However he is friendly. Need more collateral Valproic acid level is therapeutic however ammonia is mildly elevated at 74. Will probably lower Depakote dose as hyper ammonia could be contributing to confusion; however doing so can also increase manic symptoms 12/13 remains floridly delusional; at least not aggressive at all. Collateral reports he's never been dysregulated to this degree. Hx of schizoaffective and ASD. Has been taking meds and last got Invega 11/24/21. Historical report from admission 2018 shows patient was stabilized on ox carbamazepine 300 mg t.i.d., Invega Sustenna 156 mg, Ativan 1 mg b.i.d. and perphenazine 8 mg b.i.d.. Also on Cogentin 12/14 No change 12/16/2021 Continue current plan of care patient on ox carb seen Invega sustena back on perphenazine remains grossly grandiose not reality based engagement nc clonazepam to help nael 1m tid and olanzapine at night for sleep or prn psychtoic nael 12/19 remains manic, very intrusive, difficult to redirect, touching people unwantedly, grandiose delusions. Will hold order Invega Sustenna 234 mg to be given now. Will wait to see if this sub do's symptoms before making other medication adjustments Plan CV q15 Increaed back to clonazepam 1mg b.i.d. to help subdue his manic symptoms Ordered for Today invega Susenna 234 mg on 12/19 (last got on 11/24/21) Perhpenazine to 8mg BID Oxcarbazepine 300mg TID; home dose Cogentin 0.5mg BID (home med) DC depakote Will continue to get collateral I spent minutes with the patient and/or on the patient floor today, greater than?50% of which was spent counseling/coordinating care. Patient educated on: diagnosis Informed Consent: does not understand Reason for contiued inpatient stay Substantial Risk for: inability to function
[2021-12-19] MEDS: Paliperidone Palmitate 234 MG/1.5 ML SYRINGE IM (14:46)
[2021-12-19 16:15] VITALS: BP 122/71; PULSE 106; TEMP 36.6
--- NOTE | 2021-12-19 18:13 | PC.NURSE ---
Pt submitted a Three Day Notice on Sunday12/19/2021 up on 12/22/2021.
[2021-12-19] MEDS: OLANZapine 5 MG TABLET PO ×2 (18:50→18:52)
[2021-12-20 06:00] VITALS: BP 133/65; PULSE 89; RESP 18; TEMP 36.7; O2SAT 100
[2021-12-20] MEDS: OXcarbazepine 300 MG TABLET PO ×3 (08:24→19:46)
[2021-12-20] MEDS: clonazePAM 1 MG TABLET PO ×2 (08:24→14:05)
[2021-12-20] MEDS: Perphenazine 8 MG TABLET PO ×2 (08:24→19:46)
[2021-12-20] MEDS: Benztropine Mesylate 0.5 MG TABLET PO ×2 (08:24→19:46)
--- NOTE | 2021-12-20 10:11 | PC.NURSE ---
Pt requested a flu shot-Nerissa Brooks requested info and informed of status.
--- NOTE | 2021-12-20 10:15 | HO.PSYCHPN ---
Subjective Subjective Date of Service: 12/20/21 Reason For Visit: Manic psychotic agitation Interim History: No change; remains delusional, intrusive and grandiose, saying that he has got snapping his fingers and healing people. Today was a little irritable as well and accused insurance underwriter sales of something though it is not clear what. Patient signed a 3 day notice saying that he needs to go so he can heal people elsewhere; then he retracted the 3 day notice saying that he is willing to stay for 9 days, the number 9 representing some taoist idea. Then he signed another 3 day notice saying he needs to go heal people elsewhere. Then he said if he is not discharged, he will destroy the building and 3 days. Patient also made a comment that he is feeling over-sedated and seemed to be referring to Zyprexa that on-call provider started at bedtime Mental Status Exam Mental Status Exam Narrative: Pt is alert and oriented; behavior is intermittently cooperative, but mostly distracted and with some bizarre behaviors like snapping at people to cure them or give them knowledge; intrusive; patient is not in distress; dressed in casual attire And appropriately groomed; mood is described as good and affect Expansive; eye contact appropriate; Speech is normal rate, volume and prosody and not pressured; no psychomotor agitation/retardation present; thought process briefly goal oriented but otherwise tangential; Thought content is with delusional content, grandiose thinking and a preoccupation with taoist ideas; denies any SI/HI. Endorses auditory hallucinations Patients insight and judgment Impaired Diagnostics Vital Signs (24Hr): Vital Signs - 24 hr 12/19/21 16:15 12/20/21 06:00 Temperature 98 F 98.0 F Pulse Rate 106 H 89 Respiratory Rate 18 Blood Pressure 122/71 133/65 Pulse Oximetry 100 Oxygen Delivery Method Room Air BMI result Body Mass Index 25.3 Labs Results: 12/10/21 07:28 12/10/21 07:28 Medications Medications Current Medications Acetaminophen (Acetaminophen 325 Mg Tablet) 650 mg PO Q6H PRN PRN Reason: Headache/Pain Mild Scale (1-3) Al Hydroxide/Mg Hydroxide (Magnesium Hydrox/Alum Hydrox 30 Ml Oral.Susp) 30 ml PO Q6H PRN PRN Reason: Heartburn/Nausea Benztropine Mesylate (Benztropine Mesylate 0.5 Mg Tablet) 0.5 mg PO BID [facility] Last Admin: 12/20/21 08:24 Dose: 0.5 mg Clonazepam (Clonazepam 1 Mg Tablet) 1 mg PO BID@0900,1400 [facility] Last Admin: 12/20/21 08:24 Dose: 1 mg Hydroxyzine HCl (Hydroxyzine Hcl 25 Mg Tablet) 25 mg PO Q6H PRN PRN Reason: Anxiety Last Admin: 12/19/21 06:26 Dose: 25 mg Ibuprofen (Ibuprofen 600 Mg Tablet) 600 mg PO Q8H PRN PRN Reason: Pain, Mild (Pain Scale 1-3) Magnesium Hydroxide (Milk Of Magnesia 30 Ml Oral.Susp) 30 ml PO DAILY PRN PRN Reason: Constipation Last Admin: 12/18/21 03:50 Dose: 30 ml Olanzapine (Olanzapine 5 Mg Tablet) 5 mg PO BEDTIME MRX1 [facility] Last Admin: 12/19/21 18:52 Dose: 5 mg Oxcarbazepine (Oxcarbazepine 300 Mg Tablet) 300 mg PO TID [facility] Last Admin: 12/20/21 08:24 Dose: 300 mg Paliperidone Palmitate (Paliperidone Palmitate 234 Mg/1.5 Ml Syringe) 234 mg IM Q28D [facility] Last Admin: 12/19/21 14:46 Dose: 234 mg Perphenazine (Perphenazine 8 Mg Tablet) 8 mg PO BID [facility] Last Admin: 12/20/21 08:24 Dose: 8 mg Allergies Allergies Allergy/AdvReac Type Severity Reaction Status Date / Time SEASONAL ALLERGIES Allergy Unknown UNKNOWN Uncoded 12/31/19 18:40 Assessment & Plan Assessment & Plan (1) Schizoaffective disorder: Status: Acute Code(s): F25.9 - Schizoaffective disorder, unspecified Assessment and Plan: ongoing treatment of disorganized nael Plan Patient is a 26-year-old male, living in a [place] [facility] with history of schizophrenia/schizoaffective (or bipolar) who presents for florid psychotic delusional behavior in the face of discontinuing 1 of his medications for about a week. In the ED, patient was combative, trying to hit staff and needed to be chemically restrained; it was unclear when he last got his Invega Sustenna; he was started on Depakote in the emergency room.. On admission, patientIs floridly psychotic with grandiose, delusional beliefs and preoccupations. History of violence or violent threats when dysregulated. Will admit for safety and medication management 12/10 remains manic, delusional; start on invega 3mg bid 12/11 remains manic, delusional and grandiose; he is pleasant and friendly but intrusive to others and needs to remain on a one-to-one he is touching people that clearly do not want to be touched. Patient says he has not gotten Invega Sustenna for a month; tomorrow [place] to [place] [facility] and find out when he actually did get it and if he is due. 12/12 remains manic, delusional and grandiose; is still intrusive to others needing frequent redirection. However he is friendly. Need more collateral Valproic acid level is therapeutic however ammonia is mildly elevated at 74. Will probably lower Depakote dose as hyper ammonia could be contributing to confusion; however doing so can also increase manic symptoms 12/13 remains floridly delusional; at least not aggressive at all. Collateral reports he's never been dysregulated to this degree. Hx of schizoaffective and ASD. Has been taking meds and last got Invega 11/24/21. Historical report from admission 2018 shows patient was stabilized on ox carbamazepine 300 mg t.i.d., Invega Sustenna 156 mg, Ativan 1 mg b.i.d. and perphenazine 8 mg b.i.d.. Also on Cogentin 12/14 No change 12/16/2021 Continue current plan of care patient on ox carb seen Invega sustena back on perphenazine remains grossly grandiose not reality based engagement 1inc clonazepam to help nael 1m tid and olanzapine at night for sleep or prn psychtoic nael 12/19 remains manic, very intrusive, difficult to redirect, touching people unwantedly, grandiose delusions. Will hold order Invega Sustenna 234 mg to be given now. Will wait to see if this sub do's symptoms before making other medication adjustments 12/20 remains manic, intrusive, grandiose thinking he is God and healing people. It is difficult to decide whether to let medications continue to take effect or whether or not to increase medication. He is already on 3 antipsychotics, Zyprexa having been started this past weekend and is complaining of feeling a little over-sedated. Will leave medications as they are for another day; if no improvement will make changes and likely eliminate Zyprexa in favor of increasing existing home medications. There is concern of increased risk of side effects which could deter patient from medication adherence. Plan 3 day notice q15 Zyprexa 5 mg q.h.s. for insomnia (started this past weekend). Increaesd back to clonazepam 1mg b.i.d. to help subdue his manic symptoms Received Invega Susenna 234 mg on 12/19 (last got on 11/24/21) Continue Perhpenazine to 8mg BID Continue Oxcarbazepine 300mg TID; home dose Cogentin 0.5mg BID (home med) DC'd depakote: Developed hyperammoniumemia Will continue to get collateral: wood processing worker who has known him well is coming in to help assess baseline I spent minutes with the patient and/or on the patient floor today, greater than?50% of which was spent counseling/coordinating care. Patient educated on: diagnosis and medication risk/benefits Informed Consent: does not understand and further education needed Reason for contiued inpatient stay Substantial Risk for: inability to function
--- NOTE | 2021-12-20 14:52 | PC.NURSE ---
12/20/21: Gregg signed a 3-day notice today, Sunday12/20/21, up on SundayDecember 23. , UR, SW aware.
[2021-12-20 18:00] VITALS: BP 133/77; PULSE 92; RESP 16; TEMP 37.1; O2SAT 98
[2021-12-20] MEDS: OLANZapine 5 MG TABLET PO (19:46)
[2021-12-21 06:00] VITALS: BP 133/72; PULSE 105; RESP 16; TEMP 36.5; O2SAT 97
[2021-12-21] MEDS: clonazePAM 1 MG TABLET PO ×2 (09:13→15:19)
[2021-12-21] MEDS: Benztropine Mesylate 0.5 MG TABLET PO ×2 (09:13→20:21)
[2021-12-21] MEDS: OXcarbazepine 300 MG TABLET PO ×3 (09:13→20:21)
[2021-12-21] MEDS: Perphenazine 8 MG TABLET PO ×3 (09:13→20:21)
--- NOTE | 2021-12-21 14:32 | P.PNPSI_ITS ---
Subjective Subjective Date of Service: 12/21/21 Reason For Visit: Manic psychotic agitation Interim History: Patient remains delusional and grandiose continuing to say he is God. His delus ions Continue to make him intrusive to others as he is trying to heal people as they walk by, drive out demons. Today there is a particular peer that he thinks is demon possessed and wants to do an exorcism. Difficult to redirect away from patient.. Patient got irritable and Yelled at SW today, causing her to feel threatened. When this underwriter solicitation director was talking to him about staying longer on the unit, he became intense, raised his fist and repeatedly said do you want me to use the hammer? Patient then switch topics and started asking underwriter solicitation director to call his mother's doctor since she has cancer; not sure what he intended underwriter solicitation director to do. Scheduling Assistant explained why this was not possible but patient kept asking; as underwriter solicitation director again explained why underwriter solicitation director cannot do this, pt then again raised his fist and asked do you want me to use the hammer? Patient was redirectable. Mental Status Exam Mental Status Exam Narrative: Pt is alert and oriented; behavior is irritable and edgy, limited cooperation, but mostly distracted and with bizarre behaviors like snapping at people to cure them or give them knowledge; intrusive; patient is not in distress; dressed in casual attire And appropriately groomed; mood is described as good but affect, irritable, Expansive; eye contact appropriate but can also be glaring; Speech is normal rate, volume and prosody and not pressured; psychomotor agitation prese nt; thought process briefly goal oriented but mostly tangential; Thought content is with delusional content, grandiose thinking and a preoccupation with gnosticist ideas; denies any SI/HI. Endorses auditory hallucinations. Patients insight and judgment Impaired Diagnostics Vital Signs (24Hr): Vital Signs - 24 hr 12/20/21 18:00 12/21/21 06:00 Temperature 98.7 F 97.7 F Pulse Rate 92 105 H Respiratory Rate 16 16 Blood Pressure 133/77 133/72 Pulse Oximetry 98 97 Oxygen Delivery Method Room Air Room Air BMI result Body Mass Index 25.3 Labs Results: 12/10/21 07:28 12/10/21 07:28 Medications Medications Current Medications Acetaminophen (Acetaminophen 325 Mg Tablet) 650 mg PO Q6H PRN PRN Reason: Headache/Pain Mild Scale (1-3) Al Hydroxide/Mg Hydroxide (Magnesium Hydrox/Alum Hydrox 30 Ml Oral.Susp) 30 ml PO Q6H PRN PRN Reason: Heartburn/Nausea Benztropine Mesylate (Benztropine Mesylate 0.5 Mg Tablet) 0.5 mg PO BID [facility] Last Admin: 12/21/21 09:13 Dose: 0.5 mg Clonazepam (Clonazepam 1 Mg Tablet) 1 mg PO BID@0900,1400 [facility] Last Admin: 12/21/21 09:13 Dose: 1 mg Hydroxyzine HCl (Hydroxyzine Hcl 25 Mg Tablet) 25 mg PO Q6H PRN PRN Reason: Anxiety Last Admin: 12/19/21 06:26 Dose: 25 mg Ibuprofen (Ibuprofen 600 Mg Tablet) 600 mg PO Q8H PRN PRN Reason: Pain, Mild (Pain Scale 1-3) Magnesium Hydroxide (Milk Of Magnesia 30 Ml Oral.Susp) 30 ml PO DAILY PRN PRN Reason: Constipation Last Admin: 12/18/21 03:50 Dose: 30 ml Olanzapine (Olanzapine 5 Mg Tablet) 5 mg PO BEDTIME MRX1 [facility] Last Admin: 12/21/21 04:09 Dose: Not Given Oxcarbazepine (Oxcarbazepine 300 Mg Tablet) 300 mg PO TID [facility] Last Admin: 12/21/21 09:13 Dose: 300 mg Paliperidone Palmitate (Paliperidone Palmitate 234 Mg/1.5 Ml Syringe) 234 mg IM Q28D [facility] Last Admin: 12/19/21 14:46 Dose: 234 mg Perphenazine (Perphenazine 8 Mg Tablet) 8 mg PO BID [facility] Last Admin: 12/21/21 09:13 Dose: 8 mg Allergies Allergies Allergy/AdvReac Type Severity Reaction Status Date / Time Seasonal Allergies Allergy Unknown Verified 12/20/21 12:46 Assessment & Plan Assessment & Plan (1) Schizoaffective disorder: Status: Acute Code(s): F25.9 - Schizoaffective disorder, unspecified Assessment and Plan: ongoing treatment of disorganized nael Plan Patient is a 26-year-old male, [facility] with history of schizophrenia/schizoaffective (or bipolar) who presents for florid psychotic delusional behavior in the face of discontinuing 1 of his medications for about a week. In the ED, patient was combative, trying to hit staff and needed to be chemically restrained; it was unclear when he last got his Invega Sustenna; he was started on Depakote in the emergency room.. On admission, patientIs floridly psychotic with grandiose, delusional beliefs and preoccupations. History of violence or violent threats when dysregulated. Will admit for safety and medication management 12/10 remains manic, delusional; start on invega 3mg bid 12/11 remains manic, delusional and grandiose; he is pleasant and friendly but intrusive to others and needs to remain on a one-to-one he is touching people that clearly do not want to be touched. Patient says he has not gotten Invega Sustenna for a month; tomorrow Try to contact pen[facility]entiary and find out when he actually did get it and if he is due. 12/12 remains manic, delusional and grandiose; is still intrusive to others needing frequent redirection. However he is friendly. Need more collateral Valproic acid level is therapeutic however ammonia is mildly elevated at 74. Will probably lower Depakote dose as hyper ammonia could be contributing to confusion; however doing so can also increase manic symptoms 12/13 remains floridly delusional; at least not aggressive at all. Collateral reports he's never been dysregulated to this degree. Hx of schizoaffective and ASD. Has been taking meds and last got Invega 11/24/21. Historical report from admission 2018 shows patient was stabilized on ox carbamazepine 300 mg t.i.d., Invega Sustenna 156 mg, Ativan 1 mg b.i.d. and perphenazine 8 mg b.i.d.. Also on Cogentin 12/14 No change 12/16/2021 Continue current plan of care patient on ox carb seen Invega sustena back on perphenazine remains grossly grandiose not reality based engagement 1inc clonazepam to help nael 1m tid and olanzapine at night for sleep or prn psychtoic nael 12/19 remains manic, very intrusive, difficult to redirect, touching people unwantedly, grandiose delusions. Will hold order Invega Sustenna 234 mg to be given now. Will wait to see if this sub do's symptoms before making other medication adjustments 12/20 remains manic, intrusive, grandiose thinking he is God and healing people. It is difficult to decide whether to let medications continue to take effect or whether or not to increase medication. He is already on 3 antipsychotics, Zyprexa having been started this past weekend and is complaining of feeling a little over-sedated. Will leave medications as they are for another day; if no improvement will make changes and likely eliminate Zyprexa in favor of increasing existing home medications. There is concern of increased risk of side effects which could deter patient from medication adherence. 12/21 remains delusional, grandiose and intrusive. More irritable today and making some Threats, yelling at staff. Will not rescind 3 day notice saying he needs to go heel other people. Scheduling Assistant was hoping that as patient is on the same medications he has been stabilized on before, And now even at an increased dose of Invega that he would stabilize Without further medication adjustments. However patient remains floridly delusional, manic, intrusive to others and is starting to show some of the same irritability he had on admission when he was combative. Scheduling Assistant will increase perphenazine to t.i.d. to see if this can help; will discontinue Zyprexa as patient refused it anyway and since he is already on 2 antipsychotics. Tegretol is an option however this to can increase liver enzymes. rubber factory worker coming in today to help assess Plan 3 day notice q15 Consider tegretol DC Zyprexa q.h.s. for insomnia (started this past weekend); discontinue since patient refused it and are increasing perphenazine. Increaesd back to clonazepam 1mg b.i.d. to help subdue his manic symptoms Received Invega Susenna 234 mg on 12/19 (last got on 11/24/21) INCREASED TO Perhpenazine to 8mg TID (up from BID) Will get EKG to monitor Qtc Continue Oxcarbazepine 300mg TID; home dose Cogentin 0.5mg BID (home med) DC'd depakote: Developed hyperammoniumemia Will continue to get collateral: rubber factory worker who has known him well is coming in to help assess baseline I spent minutes with the patient and/or on the patient floor today, greater than?50% of which was spent counseling/coordinating care. Patient educated on: diagnosis and medication risk/benefits Informed Consent: does not understand Reason for contiued inpatient stay Substantial Risk for: inability to function and rapid decompensation
[2021-12-21 16:30] VITALS: BP 119/63; PULSE 111; RESP 14; TEMP 36.7; O2SAT 96
--- NOTE | 2021-12-22 | ECG_ITS ---
Test Reason : QTC CHECK Blood Pressure : / mmHG Vent. Rate : 082 BPM Atrial Rate : 082 BPM P-R Int : 132 ms QRS Dur : 086 ms QT Int : 344 ms P-R-T Axes : 007 048 014 degrees QTc Int : 401 ms Normal sinus rhythm Normal ECG When compared with ECG of 09-DEC-2021 14:41, Heart rate has decreased Referred By: Tobias Pollack Electronically Signed By:MALGORZATA [email or web address]
[2021-12-22 06:00] VITALS: BP 130/61; PULSE 89; RESP 16; TEMP 36.7; O2SAT 98
[2021-12-22 07:00] VITALS: BMI 25.9
[2021-12-22] MEDS: Perphenazine 8 MG TABLET PO ×3 (08:55→20:03)
[2021-12-22] MEDS: clonazePAM 1 MG TABLET PO ×2 (08:55→14:14)
[2021-12-22] MEDS: OXcarbazepine 300 MG TABLET PO ×3 (08:55→20:03)
[2021-12-22] MEDS: Benztropine Mesylate 0.5 MG TABLET PO ×2 (08:55→20:02)
--- NOTE | 2021-12-22 10:15 | P.PNPSI_ITS ---
Subjective Subjective Date of Service: 12/22/21 Reason For Visit: Manic psychotic agitation Interim History: Patient said he refuses to stay longer on the unit wants to discharge tomorrow w hen his 3 days up. He said that he would stop snapping his fingers at people, touching them or trying to heal them an obvious way, however he continued to do so though less than before. When this documentation writer discussed that patient does not seem ready to go home tomorrow, he got angry, within intense glare, moved towards documentation writer and postured. Butane Compressor Operator told him that he needed to take a step back and patient immediately did so and said he was not going to hurt documentation writer but wanted documentation writer to see how angry he could get. And that he would get much more angry if he was not discharged tomorrow. Earlier documentation writer asked if patient will would be willing to try another medication but patient refused. Patient's court worker came in today to meet with him but unfortunately documentation writer was not notified and did not get a chance to get her assessment. Mental Status Exam Mental Status Exam Narrative: Pt is alert and oriented; behavior is a little more calm, but remains intrusive and easily angered when disagreed with; remains having bizarre behaviors like snapping at people to cure them or give them knowledge; intrusive; patient is not in distress; dressed in casual attire And appropriately groomed; mood is described as fantastic but affect, expansive to irritable; eye contact appropriate but can also be glaring; Speech is normal rate, volume and prosody and not pressured; some psychomotor agitation present; thought process briefly goal oriented but mostly tangential; Thought content is with delusional content, grandiose thinking and a preoccupation with tenriism ideas; denies any SI/HI. Endorses auditory hallucinations. Patients insight and judgment Impaired Diagnostics Vital Signs (24Hr): Vital Signs - 24 hr 12/21/21 16:30 12/22/21 06:00 Temperature 98.0 F 98.1 F Pulse Rate 111 H 89 Respiratory Rate 14 16 Blood Pressure 119/63 130/61 Pulse Oximetry 96 98 Oxygen Delivery Method Room Air Room Air BMI result Body Mass Index 25.3 Labs Results: 12/10/21 07:28 12/10/21 07:28 Medications Medications Current Medications Acetaminophen (Acetaminophen 325 Mg Tablet) 650 mg PO Q6H PRN PRN Reason: Headache/Pain Mild Scale (1-3) Al Hydroxide/Mg Hydroxide (Magnesium Hydrox/Alum Hydrox 30 Ml Oral.Susp) 30 ml PO Q6H PRN PRN Reason: Heartburn/Nausea Benztropine Mesylate (Benztropine Mesylate 0.5 Mg Tablet) 0.5 mg PO BID [facility] Last Admin: 12/22/21 08:55 Dose: 0.5 mg Clonazepam (Clonazepam 1 Mg Tablet) 1 mg PO BID@0900,1400 [facility] Last Admin: 12/22/21 08:55 Dose: 1 mg Hydroxyzine HCl (Hydroxyzine Hcl 25 Mg Tablet) 25 mg PO Q6H PRN PRN Reason: Anxiety Last Admin: 12/19/21 06:26 Dose: 25 mg Ibuprofen (Ibuprofen 600 Mg Tablet) 600 mg PO Q8H PRN PRN Reason: Pain, Mild (Pain Scale 1-3) Magnesium Hydroxide (Milk Of Magnesia 30 Ml Oral.Susp) 30 ml PO DAILY PRN PRN Reason: Constipation Last Admin: 12/18/21 03:50 Dose: 30 ml Oxcarbazepine (Oxcarbazepine 300 Mg Tablet) 300 mg PO TID [facility] Last Admin: 12/22/21 08:55 Dose: 300 mg Paliperidone Palmitate (Paliperidone Palmitate 234 Mg/1.5 Ml Syringe) 234 mg IM Q28D [facility] Last Admin: 12/19/21 14:46 Dose: 234 mg Perphenazine (Perphenazine 8 Mg Tablet) 8 mg PO TID [facility] Last Admin: 12/22/21 08:55 Dose: 8 mg Allergies Allergies Allergy/AdvReac Type Severity Reaction Status Date / Time Seasonal Allergies Allergy Unknown Verified 12/20/21 12:46 Assessment & Plan Assessment & Plan (1) Schizoaffective disorder: Status: Acute Code(s): F25.9 - Schizoaffective disorder, unspecified Assessment and Plan: ongoing treatment of disorganized nael Plan Patient is a 26-year-old male, living in a [facility] with history of schizophrenia/schizoaffective (or bipolar) who presents for florid psychotic delusional behavior in the face of discontinuing 1 of his medications for about a week. In the ED, patient was combative, trying to hit staff and needed to be chemically restrained; it was unclear when he last got his Invega Sustenna; he was started on Depakote in the emergency room.. On admission, patientIs floridly psychotic with grandiose, delusional beliefs and preoccupations. History of violence or violent threats when dysregulated. Will admit for safety and medication management 12/10 remains manic, delusional; start on invega 3mg bid 12/11 remains manic, delusional and grandiose; he is pleasant and friendly but intrusive to others and needs to remain on a one-to-one he is touching people that clearly do not want to be touched. Patient says he has not gotten Invega Sustenna for a month; tomorrow Try to contact [facility] and find out when he actually did get it and if he is due. 12/12 remains manic, delusional and grandiose; is still intrusive to others needing frequent redirection. However he is friendly. Need more collateral Valproic acid level is therapeutic however ammonia is mildly elevated at 74. Will probably lower Depakote dose as hyper ammonia could be contributing to confusion; however doing so can also increase manic symptoms 12/13 remains floridly delusional; at least not aggressive at all. Collateral reports he's never been dysregulated to this degree. Hx of schizoaffective and ASD. Has been taking meds and last got Invega 11/24/21. Historical report from admission 2018 shows patient was stabilized on ox carbamazepine 300 mg t.i.d., Invega Sustenna 156 mg, Ativan 1 mg b.i.d. and perphenazine 8 mg b.i.d.. Also on Cogentin 12/14 No change 12/16/2021 Continue current plan of care patient on ox carb seen Invega sustena back on perphenazine remains grossly grandiose not reality based engagement 1inc clonazepam to help nael 1m tid and olanzapine at night for sleep or prn psychtoic nael 12/19 remains manic, very intrusive, difficult to redirect, touching people un wantedly, grandiose delusions. Will hold order Invega Sustenna 234 mg to be given now. Will wait to see if this sub do's symptoms before making other medication adjustments 12/20 remains manic, intrusive, grandiose thinking he is God and healing people. It is difficult to decide whether to let medications continue to take effect or whether or not to increase medication. He is already on 3 antipsychotics, Zyprexa having been started this past weekend and is complaining of feeling a little over-sedated. Will leave medications as they are for another day; if no improvement will make changes and likely eliminate Zyprexa in favor of increasing existing home medications. There is concern of increased risk of side effects which could deter patient from medication adherence. 12/21 remains delusional, grandiose and intrusive. More irritable today and making some Threats, yelling at staff. Will not rescind 3 day notice saying he needs to go heel other people. Butane Compressor Operator was hoping that as patient is on the same medications he has been stabilized on before, And now even at an increased dose of Invega that he would stabilize Without further medication adjustments. However patient remains floridly delusional, manic, intrusive to others and is starting to show some of the same irritability he had on admission when he was combative. Butane Compressor Operator will increase perphenazine to t.i.d. to see if this can help; will discontinue Zyprexa as patient refused it anyway and since he is already on 2 antipsychotics. Tegretol is an option however this to can increase liver enzymes. weigh and charge worker coming in today to help assess 12/22 patient remains with grandiose delusions. He had a goal today to not be intrusive to others; though it was decreased, he was unable to refrain and remains fixated on people's demonic possession and the need to heal them; patient did posture aggressively towards documentation writer with threat if he was not discharged tomorrow; patient was however able to be redirected. This is not his baseline. Will discuss with [facility] staff how far off he is from baseline; will reassess patient tomorrow but at this time it does not seem that he is ready to go home. Plan 3 day notice q15 Consider lithium (since patient had elevated ammonia on Depakote and Tegretol can also irritate the liver) DC Zyprexa q.h.s. for insomnia (started this past weekend); discontinue since patient refused it and are increasing perphenazine. Increaesd back to clonazepam 1mg b.i.d. to help subdue his manic symptoms Received Invega Susenna 234 mg on 12/19 (last got on 11/24/21) INCREASED TO Perhpenazine to 8mg TID (up from BID) 12/22 EKG Qtc WNL Continue Oxcarbazepine 300mg TID; home dose Cogentin 0.5mg BID (home med) DC'd depakote: Developed hyperammoniumemia Will continue to get collateral: weigh and charge worker who has known him well is coming in to help assess baseline I spent minutes with the patient and/or on the patient floor today, greater than?50% of which was spent counseling/coordinating care. Patient educated on: diagnosis and medication risk/benefits Informed Consent: does not understand Reason for contiued inpatient stay Substantial Risk for: harm to others, inability to function and rapid decompensation
[2021-12-22 16:56] VITALS: BP 128/61; PULSE 93
[2021-12-22] MEDS: Milk of Magnesia 30 ML ORAL.SUSP PO (19:03)
[2021-12-23] MEDS: clonazePAM 1 MG TABLET PO ×2 (08:56→14:04)
[2021-12-23] MEDS: Benztropine Mesylate 0.5 MG TABLET PO ×2 (08:56→22:12)
[2021-12-23] MEDS: Perphenazine 8 MG TABLET PO (08:56)
[2021-12-23] MEDS: OXcarbazepine 300 MG TABLET PO ×3 (08:56→22:12)
[2021-12-23 08:58] VITALS: BP 138/63; PULSE 99; RESP 20; TEMP 36.4; O2SAT 98
--- NOTE | 2021-12-23 13:18 | HO.PSYCHPN ---
Subjective Subjective Date of Service: 12/23/21 Reason For Visit: Manic psychotic agitation Interim History: pt grandiose, intrusive; threatening toward staff posturing and raising fist to copywriter and then to another female staff; continues to touch other patient despite being told it's unwanted since he remains delusional and grandiose thinking he needs to heal them; said i could kill you to staff; refuses to retract 3 day; refuses other medication changes. Mental Status Exam Mental Status Exam Narrative: Pt is alert and oriented; behavior intermittently aggressive, especially if disagreed with; intrusive to others, touching; easily angered; remains having bizarre behaviors like snapping at people to cure them or give them knowledge; intrusive; patient is not in distress; dressed in casual attire And appropriately groomed; mood is described as fantastic but affect, expansive to irritable; eye contact appropriate but can also be glaring; Speech is normal rate, volume and prosody and not pressured; some psychomotor agitation present; thought process briefly goal oriented but mostly tangential; Thought content is with delusional content, grandiose thinking and a preoccupation with spiritism ideas; denies any SI/HI. Endorses auditory hallucinations. Patients insight and judgment Impaired Diagnostics Vital Signs (24Hr): Vital Signs - 24 hr 12/22/21 16:56 12/23/21 08:58 Temperature 97.5 F Pulse Rate 93 99 Respiratory Rate 20 Blood Pressure 128/61 138/63 Pulse Oximetry 98 Oxygen Delivery Method Room Air BMI result Body Mass Index 25.9 Labs Results: 12/10/21 07:28 12/10/21 07:28 Medications Medications Current Medications Acetaminophen (Acetaminophen 325 Mg Tablet) 650 mg PO Q6H PRN PRN Reason: Headache/Pain Mild Scale (1-3) Al Hydroxide/Mg Hydroxide (Magnesium Hydrox/Alum Hydrox 30 Ml Oral.Susp) 30 ml PO Q6H PRN PRN Reason: Heartburn/Nausea Benztropine Mesylate (Benztropine Mesylate 0.5 Mg Tablet) 0.5 mg PO BID [facility] Last Admin: 12/23/21 08:56 Dose: 0.5 mg Clonazepam (Clonazepam 1 Mg Tablet) 1 mg PO BID@0900,1400 [facility] Last Admin: 12/23/21 08:56 Dose: 1 mg Hydroxyzine HCl (Hydroxyzine Hcl 25 Mg Tablet) 25 mg PO Q6H PRN PRN Reason: Anxiety Last Admin: 12/19/21 06:26 Dose: 25 mg Ibuprofen (Ibuprofen 600 Mg Tablet) 600 mg PO Q8H PRN PRN Reason: Pain, Mild (Pain Scale 1-3) Magnesium Hydroxide (Milk Of Magnesia 30 Ml Oral.Susp) 30 ml PO DAILY PRN PRN Reason: Constipation Last Admin: 12/22/21 19:03 Dose: 30 ml Oxcarbazepine (Oxcarbazepine 300 Mg Tablet) 300 mg PO TID [facility] Last Admin: 12/23/21 08:56 Dose: 300 mg Paliperidone Palmitate (Paliperidone Palmitate 234 Mg/1.5 Ml Syringe) 234 mg IM Q28D [facility] Last Admin: 12/19/21 14:46 Dose: 234 mg Perphenazine (Perphenazine 4 Mg Tablet) 12 mg PO TID [facility] Allergies Allergies Allergy/AdvReac Type Severity Reaction Status Date / Time Seasonal Allergies Allergy Unknown Verified 12/20/21 12:46 Assessment & Plan Assessment & Plan (1) Schizoaffective disorder: Status: Acute Code(s): F25.9 - Schizoaffective disorder, unspecified Assessment and Plan: ongoing treatment of disorganized nael Plan Patient is a 26-year-old male, living in a shelter with history of schizophrenia/schizoaffective (or bipolar) who presents for florid psychotic delusional behavior in the face of discontinuing 1 of his medications for about a week. In the ED, patient was combative, trying to hit staff and needed to be chemically restrained; it was unclear when he last got his Invega Sustenna; he was started on Depakote in the emergency room.. On admission, patientIs floridly psychotic with grandiose, delusional beliefs and preoccupations. History of violence or violent threats when dysregulated. Will admit for safety and medication management 12/10 remains manic, delusional; start on invega 3mg bid 12/11 remains manic, delusional and grandiose; he is pleasant and friendly but intrusive to others and needs to remain on a one-to-one he is touching people that clearly do not want to be touched. Patient says he has not gotten Invega Sustenna for a month; tomorrow Try to contact shelter and find out when he actually did get it and if he is due. 12/12 remains manic, delusional and grandiose; is still intrusive to others needing frequent redirection. However he is friendly. Need more collateral Valproic acid level is therapeutic however ammonia is mildly elevated at 74. Will probably lower Depakote dose as hyper ammonia could be contributing to confusion; however doing so can also increase manic symptoms 12/13 remains floridly delusional; at least not aggressive at all. Collateral reports he's never been dysregulated to this degree. Hx of schizoaffective and ASD. Has been taking meds and last got Invega 11/24/21. Historical report from admission 2018 shows patient was stabilized on ox carbamazepine 300 mg t.i.d., Invega Sustenna 156 mg, Ativan 1 mg b.i.d. and perphenazine 8 mg b.i.d.. Also on Cogentin 12/14 No change 12/16/2021 Continue current plan of care patient on ox carb seen Invega sustena back on perphenazine remains grossly grandiose not reality based engagement 1inc clonazepam to help nael 1m tid and olanzapine at night for sleep or prn psychtoic nael 12/19 remains manic, very intrusive, difficult to redirect, touching people unwantedly, grandiose delusions. Will hold order Invega Sustenna 234 mg to be given now. Will wait to see if this sub do's symptoms before making other medication adjustments 12/20 remains manic, intrusive, grandiose thinking he is God and healing people. It is difficult to decide whether to let medications continue to take effect or whether or not to increase medication. He is already on 3 antipsychotics, Zyprexa having been started this past weekend and is complaining of feeling a little over-sedated. Will leave medications as they are for another day; if no improvement will make changes and likely eliminate Zyprexa in favor of increasing existing home medications. There is concern of increased risk of side effects which could deter patient from medication adherence. 105 remains delusional, grandiose and intrusive. More irritable today and making some Threats, yelling at staff. Will not rescind 3 day notice saying he needs to go heel other people. Community Liaison Officer was hoping that as patient is on the same medications he has been stabilized on before, And now even at an increased dose of Invega that he would stabilize Without further medication adjustments. However patient remains floridly delusional, manic, intrusive to others and is starting to show some of the same irritability he had on admission when he was combative. Community Liaison Officer will increase perphenazine to t.i.d. to see if this can help; will discontinue Zyprexa as patient refused it anyway and since he is already on 2 antipsychotics. Tegretol is an option however this to can increase liver enzymes. recycling worker coming in today to help assess 12/22 patient remains with grandiose delusions. He had a goal today to not be intrusive to others; though it was decreased, he was unable to refrain and remains fixated on people's demonic possession and the need to heal them; patient did posture aggressively towards copywriter with threat if he was not discharged tomorrow; patient was however able to be redirected. This is not his baseline. Will discuss with shelter staff how far off he is from baseline; will reassess patient tomorrow but at this time it does not seem that he is ready to go home. 12/23 pt grandiose, intrusive; threatening toward staff posturing and raising fist to copywriter and then to another female staff; continues to touch other patient despite being told it's unwanted since he remains delusional and grandiose thinking he needs to heal them; said i could kill you to staff; refuses to retract 3 day; refuses other medication changes. Staff agrees that pt is not safe to return to the community and so will file for commitment. Plan 3 day notice; file for comitment q15 Consider lithium (since patient had elevated ammonia on Depakote and Tegretol can also irritate the liver) DC Zyprexa q.h.s. for insomnia (started this past weekend); discontinue since patient refused it and are increasing perphenazine. Increaesd back to clonazepam 1mg b.i.d. to help subdue his manic symptoms Received Invega Susenna 234 mg on 12/19 (last got on 11/24/21) INCREASED TO Perhpenazine to 12mg TID (up from 8mg TID) 12/22 EKG Qtc WNL Continue Oxcarbazepine 300mg TID; home dose Cogentin 0.5mg BID (home med) DC'd depakote: Developed hyperammoniumemia Will continue to get collateral: recycling worker who has known him well is coming in to help assess baseline I spent minutes with the patient and/or on the patient floor today, greater than?50% of which was spent counseling/coordinating care. Patient educated on: diagnosis and medication risk/benefits Informed Consent: does not understand Reason for contiued inpatient stay Substantial Risk for: harm to self, harm to others and inability to function
[2021-12-23] MEDS: Perphenazine 4 MG TABLET 12 MG PO ×2 (14:04→22:12)
[2021-12-23 18:00] VITALS: RESP 16
[2021-12-24] MEDS: Perphenazine 4 MG TABLET 12 MG PO ×3 (09:01→19:58)
[2021-12-24] MEDS: Benztropine Mesylate 0.5 MG TABLET PO ×2 (09:02→19:59)
[2021-12-24] MEDS: clonazePAM 1 MG TABLET PO ×2 (09:02→14:33)
[2021-12-24] MEDS: OXcarbazepine 300 MG TABLET PO ×3 (09:02→19:59)
[2021-12-24 18:00] VITALS: BP 111/53; PULSE 93; RESP 16; TEMP 36.5; O2SAT 98
--- NOTE | 2021-12-24 18:16 | HO.PSYCHPN ---
Subjective Subjective Date of Service: 12/24/21 Reason For Visit: Manic psychotic agitation Interim History: patient still intrusive and grandiose; did not threaten today; he says he's willing to try [facility]. Mental Status Exam Mental Status Exam Narrative: Pt is alert and oriented; behavior intermittently aggressive, especially if disagreed with; intrusive to others, touching; easily angered; remains having bizarre behaviors like snapping at people to cure them or give them knowledge; intrusive; patient is not in distress; dressed in casual attire And appropriately groomed; mood is described as fantastic but affect, expansive to irritable; eye contact appropriate but can also be glaring; Speech is normal rate, volume and prosody and not pressured; some psychomotor agitation present; thought process briefly goal oriented but mostly tangential; Thought content is with delusional content, grandiose thinking and a preoccupation with congregation ideas; denies any SI/HI. Endorses auditory hallucinations. Patients insight and judgment Impaired Diagnostics Vital Signs (24Hr): BMI result Body Mass Index 25.9 Labs Results: 12/10/21 07:28 12/10/21 07:28 Medications Medications Current Medications Acetaminophen (Acetaminophen 325 Mg Tablet) 650 mg PO Q6H PRN PRN Reason: Headache/Pain Mild Scale (1-3) Al Hydroxide/Mg Hydroxide (Magnesium Hydrox/Alum Hydrox 30 Ml Oral.Susp) 30 ml PO Q6H PRN PRN Reason: Heartburn/Nausea Benztropine Mesylate (Benztropine Mesylate 0.5 Mg Tablet) 0.5 mg PO BID [facility] Last Admin: 12/24/21 09:02 Dose: 0.5 mg Clonazepam (Clonazepam 1 Mg Tablet) 1 mg PO BID@0900,1400 [facility] Last Admin: 12/24/21 14:33 Dose: 1 mg Hydroxyzine HCl (Hydroxyzine Hcl 25 Mg Tablet) 25 mg PO Q6H PRN PRN Reason: Anxiety Last Admin: 12/19/21 06:26 Dose: 25 mg Ibuprofen (Ibuprofen 600 Mg Tablet) 600 mg PO Q8H PRN PRN Reason: Pain, Mild (Pain Scale 1-3) Magnesium Hydroxide (Milk Of Magnesia 30 Ml Oral.Susp) 30 ml PO DAILY PRN PRN Reason: Constipation Last Admin: 12/22/21 19:03 Dose: 30 ml Oxcarbazepine (Oxcarbazepine 300 Mg Tablet) 300 mg PO TID [facility] Last Admin: 12/24/21 14:33 Dose: 300 mg Paliperidone Palmitate (Paliperidone Palmitate 234 Mg/1.5 Ml Syringe) 234 mg IM Q28D [facility] Last Admin: 12/19/21 14:46 Dose: 234 mg Perphenazine (Perphenazine 4 Mg Tablet) 12 mg PO TID [facility] Last Admin: 12/24/21 14:33 Dose: 12 mg Allergies Allergies Allergy/AdvReac Type Severity Reaction Status Date / Time Seasonal Allergies Allergy Unknown Verified 12/20/21 12:46 Assessment & Plan Assessment & Plan (1) Schizoaffective disorder: Status: Acute Code(s): F25.9 - Schizoaffective disorder, unspecified Assessment and Plan: ongoing treatment of disorganized nael Plan Patient is a 26-year-old male, living in a [place] [facility] with history of schizophrenia/schizoaffective (or bipolar) who presents for florid psychotic delusional behavior in the face of discontinuing 1 of his medications for about a week. In the ED, patient was combative, trying to hit staff and needed to be chemically restrained; it was unclear when he last got his Invega Sustenna; he was started on Depakote in the emergency room.. On admission, patientIs floridly psychotic with grandiose, delusional beliefs and preoccupations. History of violence or violent threats when dysregulated. Will admit for safety and medication management 12/10 remains manic, delusional; start on invega 3mg bid 12/11 remains manic, delusional and grandiose; he is pleasant and friendly but intrusive to others and needs to remain on a one-to-one he is touching people that clearly do not want to be touched. Patient says he has not gotten Invega Sustenna for a month; tomorrow Try to contact [place] [facility] and find out when he actually did get it and if he is due. 12/12 remains manic, delusional and grandiose; is still intrusive to others needing frequent redirection. However he is friendly. Need more collateral Valproic acid level is therapeutic however ammonia is mildly elevated at 74. Will probably lower Depakote dose as hyper ammonia could be contributing to confusion; however doing so can also increase manic symptoms 12/13 remains floridly delusional; at least not aggressive at all. Collateral reports he's never been dysregulated to this degree. Hx of schizoaffective and ASD. Has been taking meds and last got Invega 11/24/21. Historical report from admission 2018 shows patient was stabilized on ox carbamazepine 300 mg t.i.d., Invega Sustenna 156 mg, Ativan 1 mg b.i.d. and perphenazine 8 mg b.i.d.. Also on Cogentin 12/14 No change 12/16/2021 Continue current plan of care patient on ox carb seen Invega sustena back on perphenazine remains grossly grandiose not reality based engagement nc clonazepam to help nael 1m tid and olanzapine at night for sleep or prn psychtoic nael 12/19 remains manic, very intrusive, difficult to redirect, touching people unwantedly, grandiose delusions. Will hold order Invega Sustenna 234 mg to be given now. Will wait to see if this sub do's symptoms before making other medication adjustments 12/20 remains manic, intrusive, grandiose thinking he is God and healing people. It is difficult to decide whether to let medications continue to take effect or whether or not to increase medication. He is already on 3 antipsychotics, Zyprexa having been started this past weekend and is complaining of feeling a little over-sedated. Will leave medications as they are for another day; if no improvement will make changes and likely eliminate Zyprexa in favor of increasing existing home medications. There is concern of increased risk of side effects which could deter patient from medication adherence. 12/21 remains delusional, grandiose and intrusive. More irritable today and making some Threats, yelling at staff. Will not rescind 3 day notice saying he needs to go heel other people. [employer] was hoping that as patient is on the same medications he has been stabilized on before, And now even at an increased dose of Invega that he would stabilize Without further medication adjustments. However patient remains floridly delusional, manic, intrusive to others and is starting to show some of the same irritability he had on admission when he was combative. [employer] will increase perphenazine to t.i.d. to see if this can help; will discontinue Zyprexa as patient refused it anyway and since he is already on 2 antipsychotics. Tegretol is an option however this to can increase liver enzymes. cable worker helper coming in today to help assess 12/22 patient remains with grandiose delusions. He had a goal today to not be intrusive to others; though it was decreased, he was unable to refrain and remains fixated on people's demonic possession and the need to heal them; patient did posture aggressively towards policy writer sales with threat if he was not discharged tomorrow; patient was however able to be redirected. This is not his baseline. Will discuss with [place] [facility] staff how far off he is from baseline; will reassess patient tomorrow but at this time it does not seem that he is ready to go home. 12/23 pt grandiose, intrusive; threatening toward staff posturing and raising fist to policy writer sales and then to another female staff; continues to touch other patient despite being told it's unwanted since he remains delusional and grandiose thinking he needs to heal them; said i could kill you to staff; refuses to retract 3 day; refuses other medication changes. Staff agrees that pt is not safe to return to the community and so will file for commitment. 12/24 pt agrees to try lithium Plan 3 day notice; file for commitment q15 START lithium ER 300mg qhs (since patient had elevated ammonia on Depakote and Tegretol can also irritate the liver) DC Zyprexa q.h.s. for insomnia (started this past weekend); discontinue since patient refused it and are increasing perphenazine. Increaesd back to clonazepam 1mg b.i.d. to help subdue his manic symptoms Received Invega Susenna 234 mg on 12/19 (last got on 11/24/21) INCREASED TO Perhpenazine to 12mg TID (up from 8mg TID) 12/22 EKG Qtc WNL Continue Oxcarbazepine 300mg TID; home dose Cogentin 0.5mg BID (home med) DC'd depakote: Developed hyperammoniumemia Will continue to get collateral: cable worker helper who has known him well is coming in to help assess baseline I spent minutes with the patient and/or on the patient floor today, greater than?50% of which was spent counseling/coordinating care. Patient educated on: medication risk/benefits Informed Consent: understands and further education needed Reason for contiued inpatient stay Substantial Risk for: inability to function
[2021-12-24] MEDS: Lithium Carbonate ER 300 MG TABLET.ER PO (19:59)
[2021-12-25 08:00] VITALS: BP 130/61; PULSE 86; RESP 18; TEMP 36.3; O2SAT 95
[2021-12-25] MEDS: clonazePAM 1 MG TABLET PO ×2 (09:45→15:02)
[2021-12-25] MEDS: OXcarbazepine 300 MG TABLET PO ×3 (09:45→21:18)
[2021-12-25] MEDS: Benztropine Mesylate 0.5 MG TABLET PO ×2 (09:45→21:18)
[2021-12-25] MEDS: Perphenazine 4 MG TABLET 12 MG PO ×3 (09:46→21:18)
[2021-12-25 18:00] VITALS: BP 107/52; PULSE 74; RESP 20; TEMP 36.3; O2SAT 98
--- NOTE | 2021-12-25 19:51 | HO.PSYCHPN ---
Subjective Subjective Date of Service: 12/25/21 Reason For Visit: Manic psychotic agitation Interim History: Patient more calm today. He did take lithium last night which she told expert medical writer immediately. Patient talked about reading the Bible and the verses he was considering however for a while he does discussed his reading and did not become grandiose or take on the role of got/Andrea, healing in imparting knowledge with a snap of his fingers. This however did occur eventually but with some less intensity. He continues to try and hugged patient's or give the massages and has a hard time controlling himself, thinking he is doing a good thing but overall less intrusive. Mental Status Exam Mental Status Exam Narrative: Pt is alert and oriented; behavior intrusive, however no aggressiveness today; still unwanted touching of others but a little less so; remains having bizarre behaviors like snapping at people to cure them or give them knowledge; patient is not in distress; dressed in casual attire And appropriately groomed; mood is described as fantastic and affect a little more calm, less expansive, less irritable; eye contact appropriate; Speech is normal rate, volume and prosody and not pressured; some psychomotor agitation present; thought process more goal oriented but still becomes tangential; Thought content remains with delusional content, grandiose thinking and a preoccupation with zoroastrianism ideas; denies any SI/HI. Endorses auditory hallucinations. Patients insight and judgment Impaired Diagnostics Vital Signs (24Hr): Vital Signs - 24 hr 12/25/21 08:00 Temperature 97.3 F Pulse Rate 86 Respiratory Rate 18 Blood Pressure 130/61 Pulse Oximetry 95 Oxygen Delivery Method Room Air BMI result Body Mass Index 25.9 Labs Results: 12/10/21 07:28 12/10/21 07:28 Medications Medications Current Medications Acetaminophen (Acetaminophen 325 Mg Tablet) 650 mg PO Q6H PRN PRN Reason: Headache/Pain Mild Scale (1-3) Al Hydroxide/Mg Hydroxide (Magnesium Hydrox/Alum Hydrox 30 Ml Oral.Susp) 30 ml PO Q6H PRN PRN Reason: Heartburn/Nausea Benztropine Mesylate (Benztropine Mesylate 0.5 Mg Tablet) 0.5 mg PO BID [facility] Last Admin: 12/25/21 09:45 Dose: 0.5 mg Clonazepam (Clonazepam 1 Mg Tablet) 1 mg PO BID@0900,1400 [facility] Last Admin: 12/25/21 15:02 Dose: 1 mg Hydroxyzine HCl (Hydroxyzine Hcl 25 Mg Tablet) 25 mg PO Q6H PRN PRN Reason: Anxiety Last Admin: 12/19/21 06:26 Dose: 25 mg Ibuprofen (Ibuprofen 600 Mg Tablet) 600 mg PO Q8H PRN PRN Reason: Pain, Mild (Pain Scale 1-3) [place] Carbonate ([place] Carbonate Er 300 Mg Tablet.Er) 300 mg PO BEDTIME [facility] Last Admin: 12/24/21 19:59 Dose: 300 mg Magnesium Hydroxide (Milk Of Magnesia 30 Ml Oral.Susp) 30 ml PO DAILY PRN PRN Reason: Constipation Last Admin: 12/22/21 19:03 Dose: 30 ml Oxcarbazepine (Oxcarbazepine 300 Mg Tablet) 300 mg PO TID [facility] Last Admin: 12/25/21 15:02 Dose: 300 mg Paliperidone Palmitate (Paliperidone Palmitate 234 Mg/1.5 Ml Syringe) 234 mg IM Q28D [facility] Last Admin: 12/19/21 14:46 Dose: 234 mg Perphenazine (Perphenazine 4 Mg Tablet) 12 mg PO TID [facility] Last Admin: 12/25/21 15:02 Dose: 12 mg Allergies Allergies Allergy/AdvReac Type Severity Reaction Status Date / Time Seasonal Allergies Allergy Unknown Verified 12/20/21 12:46 Assessment & Plan Assessment & Plan (1) Schizoaffective disorder: Status: Acute Code(s): F25.9 - Schizoaffective disorder, unspecified Assessment and Plan: ongoing treatment of disorganized nael Plan Patient is a 26-year-old male, living in a custodial with history of schizophrenia/schizoaffective (or bipolar) who presents for florid psychotic delusional behavior in the face of discontinuing 1 of his medications for about a week. In the ED, patient was combative, trying to hit staff and needed to be chemically restrained; it was unclear when he last got his Invega Sustenna; he was started on Depakote in the emergency room.. On admission, patientIs floridly psychotic with grandiose, delusional beliefs and preoccupations. History of violence or violent threats when dysregulated. Will admit for safety and medication management 12/10 remains manic, delusional; start on invega 3mg bid 12/11 remains manic, delusional and grandiose; he is pleasant and friendly but intrusive to others and needs to remain on a one-to-one he is touching people that clearly do not want to be touched. Patient says he has not gotten Invega Sustenna for a month; tomorrow Try to contact custodial and find out when he actually did get it and if he is due. 12/12 remains manic, delusional and grandiose; is still intrusive to others needing frequent redirection. However he is friendly. Need more collateral Valproic acid level is therapeutic however ammonia is mildly elevated at 74. Will probably lower Depakote dose as hyper ammonia could be contributing to confusion; however doing so can also increase manic symptoms 12/13 remains floridly delusional; at least not aggressive at all. Collateral reports he's never been dysregulated to this degree. Hx of schizoaffective and ASD. Has been taking meds and last got Invega 11/24/21. Historical report from admission 2018 shows patient was stabilized on ox carbamazepine 300 mg t.i.d., Invega Sustenna 156 mg, Ativan 1 mg b.i.d. and perphenazine 8 mg b.i.d.. Also on Cogentin 12/14 No change 12/16/2021 Continue current plan of care patient on ox carb seen Invega sustena back on perphenazine remains grossly grandiose not reality based engagement 1inc clonazepam to help nael 1m tid and olanzapine at night for sleep or prn psychtoic nael 12/19 remains manic, very intrusive, difficult to redirect, touching people unwantedly, grandiose delusions. Will hold order Invega Sustenna 234 mg to be given now. Will wait to see if this sub do's symptoms before making other medication adjustments 12/20 remains manic, intrusive, grandiose thinking he is God and healing people. It is difficult to decide whether to let medications continue to take effect or whether or not to increase medication. He is already on 3 antipsychotics, Zyprexa having been started this past weekend and is complaining of feeling a little over-sedated. Will leave medications as they are for another day; if no improvement will make changes and likely eliminate Zyprexa in favor of increasing existing home medications. There is concern of increased risk of side effects which could deter patient from medication adherence. 12/21 remains delusional, grandiose and intrusive. More irritable today and making some Threats, yelling at staff. Will not rescind 3 day notice saying he needs to go heel other people. [employer] was hoping that as patient is on the same medications he has been stabilized on before, And now even at an increased dose of Invega that he would stabilize Without further medication adjustments. However patient remains floridly delusional, manic, intrusive to others and is starting to show some of the same irritability he had on admission when he was combative. [employer] will increase perphenazine to t.i.d. to see if this can help; will discontinue Zyprexa as patient refused it anyway and since he is already on 2 antipsychotics. Tegretol is an option however this to can increase liver enzymes. warehouse assembly worker coming in today to help assess 12/22 patient remains with grandiose delusions. He had a goal today to not be intrusive to others; though it was decreased, he was unable to refrain and remains fixated on people's demonic possession and the need to heal them; patient did posture aggressively towards expert medical writer with threat if he was not discharged tomorrow; patient was however able to be redirected. This is not his baseline. Will discuss with custodial staff how far off he is from baseline; will reassess patient tomorrow but at this time it does not seem that he is ready to go home. 12/23 pt grandiose, intrusive; threatening toward staff posturing and raising fist to expert medical writer and then to another female staff; continues to touch other patient despite being told it's unwanted since he remains delusional and grandiose thinking he needs to heal them; said i could kill you to staff; refuses to retract 3 day; refuses other medication changes. Staff agrees that pt is not safe to return to the community and so will file for commitment. 12/24 pt agrees to try lithium 12/25 continue current treatment plan; there is some hope that with addition of lithium, patient may be getting a little more calm. Will continue to assess. Plan 3 day notice; file for commitment q15 START lithium ER 300mg qhs (since patient had elevated ammonia on Depakote and Tegretol can also irritate the liver) DC Zyprexa q.h.s. for insomnia (started this past weekend); discontinue since patient refused it and are increasing perphenazine. Increaesd back to clonazepam 1mg b.i.d. to help subdue his manic symptoms Received Invega Susenna 234 mg on 12/19 (last got on 11/24/21) INCREASED TO Perhpenazine to 12mg TID (up from 8mg TID) 12/22 EKG Qtc WNL Continue Oxcarbazepine 300mg TID; home dose Cogentin 0.5mg BID (home med) DC'd depakote: Developed hyperammoniumemia Will continue to get collateral: warehouse assembly worker who has known him well is coming in to help assess baseline I spent minutes with the patient and/or on the patient floor today, greater than?50% of which was spent counseling/coordinating care. Patient educated on: diagnosis and medication risk/benefits Informed Consent: does not understand and further education needed Reason for contiued inpatient stay Substantial Risk for: inability to function and rapid decompensation
[2021-12-25] MEDS: Lithium Carbonate ER 300 MG TABLET.ER PO (21:18)
[2021-12-26 06:00] VITALS: BP 115/54; PULSE 78; RESP 16; TEMP 36.6; O2SAT 98
[2021-12-26] MEDS: OXcarbazepine 300 MG TABLET PO ×3 (08:38→20:25)
[2021-12-26] MEDS: clonazePAM 1 MG TABLET PO ×2 (08:38→13:16)
[2021-12-26] MEDS: Benztropine Mesylate 0.5 MG TABLET PO ×2 (08:38→20:24)
[2021-12-26] MEDS: Perphenazine 4 MG TABLET 12 MG PO ×3 (08:38→20:25)
--- NOTE | 2021-12-26 14:04 | HO.PSYCHPN ---
Subjective Subjective Date of Service: 12/26/21 Reason For Visit: Manic psychotic agitation Interim History: Patient more calm. Patient talked about his visit with a friend came the other day and shared how meaningful their relationship is. Patient said he sleeping well and denies any complaints and has no requests. Software Security Architect kept trying to solicit grandiose delusions however none expressed at all. Will continue to monitor Mental Status Exam Mental Status Exam Narrative: Pt is alert and oriented; behavior less intrusive, friendly, cooperative; more respect of peoples boundaries; behaviors more organized; patient is not in distress; dressed in casual attire and appropriately groomed; mood is described as fantastic and affect more calm, less expansive, less irritable; eye contact appropriate; Speech is normal rate, volume and prosody and not pressured; some psychomotor agitation present; thought process more goal oriented; can still become tangential but less so; Thought content more on day to day things; hinduism topics, but less delusional/grandiose preoccupation; denies any SI/HI. AH unclear; Patients insight and judgment Impaired but improving. Diagnostics Vital Signs (24Hr): Vital Signs - 24 hr 12/25/21 18:00 12/26/21 06:00 Temperature 97.3 F 97.9 F Pulse Rate 74 78 Respiratory Rate 20 16 Blood Pressure 107/52 L 115/54 L Pulse Oximetry 98 98 Oxygen Delivery Method Room Air Room Air BMI result Body Mass Index 25.9 Labs Results: 12/10/21 07:28 12/10/21 07:28 Medications Medications Current Medications Acetaminophen (Acetaminophen 325 Mg Tablet) 650 mg PO Q6H PRN PRN Reason: Headache/Pain Mild Scale (1-3) Al Hydroxide/Mg Hydroxide (Magnesium Hydrox/Alum Hydrox 30 Ml Oral.Susp) 30 ml PO Q6H PRN PRN Reason: Heartburn/Nausea Benztropine Mesylate (Benztropine Mesylate 0.5 Mg Tablet) 0.5 mg PO BID [facility] Last Admin: 12/26/21 08:38 Dose: 0.5 mg Clonazepam (Clonazepam 1 Mg Tablet) 1 mg PO BID@0900,1400 [facility] Last Admin: 12/26/21 13:16 Dose: 1 mg Hydroxyzine HCl (Hydroxyzine Hcl 25 Mg Tablet) 25 mg PO Q6H PRN PRN Reason: Anxiety Last Admin: 12/19/21 06:26 Dose: 25 mg Ibuprofen (Ibuprofen 600 Mg Tablet) 600 mg PO Q8H PRN PRN Reason: Pain, Mild (Pain Scale 1-3) [place] Carbonate ([place] Carbonate Er 300 Mg Tablet.Er) 300 mg PO BEDTIME [facility] Last Admin: 12/25/21 21:18 Dose: 300 mg Magnesium Hydroxide (Milk Of Magnesia 30 Ml Oral.Susp) 30 ml PO DAILY PRN PRN Reason: Constipation Last Admin: 12/22/21 19:03 Dose: 30 ml Oxcarbazepine (Oxcarbazepine 300 Mg Tablet) 300 mg PO TID [facility] Last Admin: 12/26/21 08:38 Dose: 300 mg Paliperidone Palmitate (Paliperidone Palmitate 234 Mg/1.5 Ml Syringe) 234 mg IM Q28D [facility] Last Admin: 12/19/21 14:46 Dose: 234 mg Perphenazine (Perphenazine 4 Mg Tablet) 12 mg PO TID [facility] Last Admin: 12/26/21 08:38 Dose: 12 mg Allergies Allergies Allergy/AdvReac Type Severity Reaction Status Date / Time Seasonal Allergies Allergy Unknown Verified 12/20/21 12:46 Assessment & Plan Assessment & Plan (1) Schizoaffective disorder: Status: Acute Code(s): F25.9 - Schizoaffective disorder, unspecified Assessment and Plan: ongoing treatment of disorganized nael Plan Patient is a 26-year-old male, living in a halfway with history of schizophrenia/schizoaffective (or bipolar) who presents for florid psychotic delusional behavior in the face of discontinuing 1 of his medications for about a week. In the ED, patient was combative, trying to hit staff and needed to be chemically restrained; it was unclear when he last got his Invega Sustenna; he was started on Depakote in the emergency room.. On admission, patientIs floridly psychotic with grandiose, delusional beliefs and preoccupations. History of violence or violent threats when dysregulated. Will admit for safety and medication management 12/10 remains manic, delusional; start on invega 3mg bid 12/11 remains manic, delusional and grandiose; he is pleasant and friendly but intrusive to others and needs to remain on a one-to-one he is touching people that clearly do not want to be touched. Patient says he has not gotten Invega Sustenna for a month; tomorrow Try to contact halfway and find out when he actually did get it and if he is due. 12/12 remains manic, delusional and grandiose; is still intrusive to others needing frequent redirection. However he is friendly. Need more collateral Valproic acid level is therapeutic however ammonia is mildly elevated at 74. Will probably lower Depakote dose as hyper ammonia could be contributing to confusion; however doing so can also increase manic symptoms 12/13 remains floridly delusional; at least not aggressive at all. Collateral reports he's never been dysregulated to this degree. Hx of schizoaffective and ASD. Has been taking meds and last got Invega 11/24/21. Historical report from admission 2018 shows patient was stabilized on ox carbamazepine 300 mg t.i.d., Invega Sustenna 156 mg, Ativan 1 mg b.i.d. and perphenazine 8 mg b.i.d.. Also on Cogentin 12/14 No change 12/16/2021 Continue current plan of care patient on ox carb seen Invega sustena back on perphenazine remains grossly grandiose not reality based engagement 1inc clonazepam to help nael 1m tid and olanzapine at night for sleep or prn psychtoic nael 12/19 remains manic, very intrusive, difficult to redirect, touching people unwantedly, grandiose delusions. Will hold order Invega Sustenna 234 mg to be given now. Will wait to see if this sub do's symptoms before making other medication adjustments 12/20 remains manic, intrusive, grandiose thinking he is God and healing people. It is difficult to decide whether to let medications continue to take effect or whether or not to increase medication. He is already on 3 antipsychotics, Zyprexa having been started this past weekend and is complaining of feeling a little over-sedated. Will leave medications as they are for another day; if no improvement will make changes and likely eliminate Zyprexa in favor of increasing existing home medications. There is concern of increased risk of side effects which could deter patient from medication adherence. 5 remains delusional, grandiose and intrusive. More irritable today and making some Threats, yelling at staff. Will not rescind 3 day notice saying he needs to go heel other people. Software Security Architect was hoping that as patient is on the same medications he has been stabilized on before, And now even at an increased dose of Invega that he would stabilize Without further medication adjustments. However patient remains floridly delusional, manic, intrusive to others and is starting to show some of the same irritability he had on admission when he was combative. Software Security Architect will increase perphenazine to t.i.d. to see if this can help; will discontinue Zyprexa as patient refused it anyway and since he is already on 2 antipsychotics. Tegretol is an option however this to can increase liver enzymes. protective services social worker coming in today to help assess 12/22 patient remains with grandiose delusions. He had a goal today to not be intrusive to others; though it was decreased, he was unable to refrain and remains fixated on people's demonic possession and the need to heal them; patient did posture aggressively towards typewriter assembly and parts inspector with threat if he was not discharged tomorrow; patient was however able to be redirected. This is not his baseline. Will discuss with halfway staff how far off he is from baseline; will reassess patient tomorrow but at this time it does not seem that he is ready to go home. 12/23 pt grandiose, intrusive; threatening toward staff posturing and raising fist to typewriter assembly and parts inspector and then to another female staff; continues to touch other patient despite being told it's unwanted since he remains delusional and grandiose thinking he needs to heal them; said i could kill you to staff; refuses to retract 3 day; refuses other medication changes. Staff agrees that pt is not safe to return to the community and so will file for commitment. 12/24 pt agrees to try lithium 12/25 continue current treatment plan; there is some hope that with addition of lithium, patient may be getting a little more calm. Will continue to assess. 12/26 patient may be calming down, lest delusional, more in behavioral control, no aggression Plan 3 day notice; file for commitment q15 Continue lithium ER 300mg qhs (since patient had elevated ammonia on Depakote and Tegretol can also irritate the liver) DC Zyprexa q.h.s. for insomnia (started this past weekend); discontinue since patient refused it and are increasing perphenazine. Increaesd back to clonazepam 1mg b.i.d. to help subdue his manic symptoms Received Invega Susenna 234 mg on 12/19 (last got on 11/24/21) INCREASED TO Perhpenazine to 12mg TID (up from 8mg TID) 12/22 EKG Qtc WNL Continue Oxcarbazepine 300mg TID; home dose Cogentin 0.5mg BID (home med) DC'd depakote: Developed hyperammoniumemia Will continue to get collateral: protective services social worker who has known him well is coming in to help assess baseline I spent minutes with the patient and/or on the patient floor today, greater than?50% of which was spent counseling/coordinating care. Patient educated on: diagnosis and medication risk/benefits Reason for contiued inpatient stay Substantial Risk for: rapid decompensation
[2021-12-26 18:00] VITALS: BP 132/70; PULSE 85; RESP 18; TEMP 36.6; O2SAT 98
[2021-12-26] MEDS: Lithium Carbonate ER 300 MG TABLET.ER PO (20:25)
[2021-12-27 06:00] VITALS: BP 136/81; PULSE 73; RESP 14; O2SAT 98
[2021-12-27] MEDS: Perphenazine 4 MG TABLET 12 MG PO ×3 (09:25→19:20)
[2021-12-27] MEDS: Benztropine Mesylate 0.5 MG TABLET PO ×2 (09:25→19:20)
[2021-12-27] MEDS: OXcarbazepine 300 MG TABLET PO ×3 (09:25→19:20)
--- NOTE | 2021-12-27 10:15 | HO.PSYCHPN ---
Subjective Subjective Date of Service: 12/27/21 Reason For Visit: Manic psychotic agitation Interim History: Patient remains more calm and is able to discuss numerous things without talking about delusional/grandiose content. While it is still there, patient says he knows to keep it private from others. Patient still intermittently touching others unwantedly. Patient very much wants to heal people but also said that he knows he needs to stop that and will just use his mind to heal people instead of physical touch. Patient is tolerating his medications well. Is overall friendly in the milieu and much less intrusive. He is hoping to discharge on when his 3 day notice is up. Patient's staff at intermediate agree that patient is much better and okay for discharge. Mental Status Exam Mental Status Exam Narrative: Pt is alert and oriented; behavior much less intrusive, friendly, cooperative; more respect of peoples boundaries; behaviors more organized; patient is not in distress; dressed in casual attire and appropriately groomed; mood is described as fantastic and affect more calm, less expansive, less irritable; eye contact appropriate; Speech is normal rate, volume and prosody and not pressured; some psychomotor agitation present; thought process is goal oriented and linear; Thought content more on day to day things, but can still get distracted by mandaen topics and delusional/grandiose preoccupation though much less; denies any SI/HI. AH unclear; Patients insight and judgment Impaired but improving and adequate. Diagnostics Vital Signs (24Hr): Vital Signs - 24 hr 12/26/21 18:00 12/27/21 06:00 Temperature 97.8 F Pulse Rate 85 73 Respiratory Rate 18 14 Blood Pressure 132/70 136/81 Pulse Oximetry 98 98 Oxygen Delivery Method Room Air Room Air BMI result Body Mass Index 25.9 Labs Results: 12/10/21 07:28 12/10/21 07:28 Medications Medications Current Medications Acetaminophen (Acetaminophen 325 Mg Tablet) 650 mg PO Q6H PRN PRN Reason: Headache/Pain Mild Scale (1-3) Al Hydroxide/Mg Hydroxide (Magnesium Hydrox/Alum Hydrox 30 Ml Oral.Susp) 30 ml PO Q6H PRN PRN Reason: Heartburn/Nausea Benztropine Mesylate (Benztropine Mesylate 0.5 Mg Tablet) 0.5 mg PO BID [facility] Last Admin: 12/27/21 09:25 Dose: 0.5 mg Hydroxyzine HCl (Hydroxyzine Hcl 25 Mg Tablet) 25 mg PO Q6H PRN PRN Reason: Anxiety Last Admin: 12/19/21 06:26 Dose: 25 mg Ibuprofen (Ibuprofen 600 Mg Tablet) 600 mg PO Q8H PRN PRN Reason: Pain, Mild (Pain Scale 1-3) [place] Carbonate ([place] Carbonate Er 300 Mg Tablet.Er) 300 mg PO BEDTIME [facility] Last Admin: 12/26/21 20:25 Dose: 300 mg Magnesium Hydroxide (Milk Of Magnesia 30 Ml Oral.Susp) 30 ml PO DAILY PRN PRN Reason: Constipation Last Admin: 12/22/21 19:03 Dose: 30 ml Oxcarbazepine (Oxcarbazepine 300 Mg Tablet) 300 mg PO TID [facility] Last Admin: 12/27/21 09:25 Dose: 300 mg Paliperidone Palmitate (Paliperidone Palmitate 234 Mg/1.5 Ml Syringe) 234 mg IM Q28D [facility] Last Admin: 12/19/21 14:46 Dose: 234 mg Perphenazine (Perphenazine 4 Mg Tablet) 12 mg PO TID [facility] Last Admin: 12/27/21 09:25 Dose: 12 mg Allergies Allergies Allergy/AdvReac Type Severity Reaction Status Date / Time Seasonal Allergies Allergy Unknown Verified 12/20/21 12:46 Assessment & Plan Assessment & Plan (1) Schizoaffective disorder: Status: Acute Code(s): F25.9 - Schizoaffective disorder, unspecified Assessment and Plan: ongoing treatment of disorganized nael Plan Patient is a 26-year-old male, living in a intermediate with history of schizophrenia/schizoaffective (or bipolar) who presents for florid psychotic delusional behavior in the face of discontinuing 1 of his medications for about a week. In the ED, patient was combative, trying to hit staff and needed to be chemically restrained; it was unclear when he last got his Invega Sustenna; he was started on Depakote in the emergency room.. On admission, patientIs floridly psychotic with grandiose, delusional beliefs and preoccupations. History of violence or violent threats when dysregulated. Will admit for safety and medication management 12/10 remains manic, delusional; start on invega 3mg bid 12/11 remains manic, delusional and grandiose; he is pleasant and friendly but intrusive to others and needs to remain on a one-to-one he is touching people that clearly do not want to be touched. Patient says he has not gotten Invega Sustenna for a month; tomorrow Try to contact intermediate and find out when he actually did get it and if he is due. 12/12 remains manic, delusional and grandiose; is still intrusive to others needing frequent redirection. However he is friendly. Need more collateral Valproic acid level is therapeutic however ammonia is mildly elevated at 74. Will probably lower Depakote dose as hyper ammonia could be contributing to confusion; however doing so can also increase manic symptoms 12/13 remains floridly delusional; at least not aggressive at all. Collateral reports he's never been dysregulated to this degree. Hx of schizoaffective and ASD. Has been taking meds and last got Invega 11/24/21. Historical report from admission 2018 shows patient was stabilized on ox carbamazepine 300 mg t.i.d., Invega Sustenna 156 mg, Ativan 1 mg b.i.d. and perphenazine 8 mg b.i.d.. Also on Cogentin 12/14 No change 12/16/2021 Continue current plan of care patient on ox carb seen Invega sustena back on perphenazine remains grossly grandiose not reality based engagement 1inc clonazepam to help nael 1m tid and olanzapine at night for sleep or prn psychtoic nael 12/19 remains manic, very intrusive, difficult to redirect, touching people unwantedly, grandiose delusions. Will hold order Invega Sustenna 234 mg to be given now. Will wait to see if this sub do's symptoms before making other medication adjustments 12/20 remains manic, intrusive, grandiose thinking he is God and healing people. It is difficult to decide whether to let medications continue to take effect or whether or not to increase medication. He is already on 3 antipsychotics, Zyprexa having been started this past weekend and is complaining of feeling a little over-sedated. Will leave medications as they are for another day; if no improvement will make changes and likely eliminate Zyprexa in favor of increasing existing home medications. There is concern of increased risk of side effects which could deter patient from medication adherence. 12/21 remains delusional, grandiose and intrusive. More irritable today and making some Threats, yelling at staff. Will not rescind 3 day notice saying he needs to go heel other people. Stacking Machine Operator was hoping that as patient is on the same medications he has been stabilized on before, And now even at an increased dose of Invega that he would stabilize Without further medication adjustments. However patient remains floridly delusional, manic, intrusive to others and is starting to show some of the same irritability he had on admission when he was combative. Stacking Machine Operator will increase perphenazine to t.i.d. to see if this can help; will discontinue Zyprexa as patient refused it anyway and since he is already on 2 antipsychotics. Tegretol is an option however this to can increase liver enzymes. pit crew support worker coming in today to help assess 12/22 patient remains with grandiose delusions. He had a goal today to not be intrusive to others; though it was decreased, he was unable to refrain and remains fixated on people's demonic possession and the need to heal them; patient did posture aggressively towards television script writer with threat if he was not discharged tomorrow; patient was however able to be redirected. This is not his baseline. Will discuss with intermediate staff how far off he is from baseline; will reassess patient tomorrow but at this time it does not seem that he is ready to go home. 12/23 pt grandiose, intrusive; threatening toward staff posturing and raising fist to television script writer and then to another female staff; continues to touch other patient despite being told it's unwanted since he remains delusional and grandiose thinking he needs to heal them; said i could kill you to staff; refuses to retract 3 day; refuses other medication changes. Staff agrees that pt is not safe to return to the community and so will file for commitment. 12/24 pt agrees to try lithium 12/25 continue current treatment plan; there is some hope that with addition of lithium, patient may be getting a little more calm. Will continue to assess. 12/26 patient may be calming down, lest delusional, more in behavioral control, no aggression 12/27 Patient remains more calm and is able to discuss numerous things without talking about delusional/grandiose content. While it is still there, patient says he knows to keep it private from others. Patient still intermittently touching others unwantedly. Patient very much wants to heal people but also said that he knows he needs to stop that and will just use his mind to heal people instead of physical touch. Patient is tolerating his medications well. Is overall friendly in the milieu and much less intrusive. He is hoping to discharge on when his 3 day notice is up. Patient's staff at intermediate agree that patient is much better and okay for discharge. -will get labs Plan 3 day notice; file for commitment q15 Continue lithium ER 300mg qhs (since patient had elevated ammonia on Depakote and Tegretol can also irritate the liver) DC Zyprexa q.h.s. for insomnia (started this past weekend); discontinue since patient refused it and are increasing perphenazine. Increaesd back to clonazepam 1mg b.i.d. to help subdue his manic symptoms Received Invega Susenna 234 mg on 12/19 (last got on 11/24/21) INCREASED TO Perhpenazine to 12mg TID (up from 8mg TID) 12/22 EKG Qtc WNL Continue Oxcarbazepine 300mg TID; home dose Cogentin 0.5mg BID (home med) DC'd depakote: Developed hyperammoniumemia Will continue to get collateral: pit crew support worker who has known him well is coming in to help assess baseline I spent minutes with the patient and/or on the patient floor today, greater than?50% of which was spent counseling/coordinating care. Patient educated on: diagnosis and medication risk/benefits Informed Consent: understands and further education needed Reason for contiued inpatient stay Substantial Risk for: stable for discharge
[2021-12-27 19:14] VITALS: BP 110/56; PULSE 79
[2021-12-27] MEDS: Lithium Carbonate ER 300 MG TABLET.ER PO (19:20)
[2021-12-28 08:51] VITALS: BP 141/61; PULSE 80; RESP 18; TEMP 36.9; O2SAT 99
[2021-12-28] MEDS: Perphenazine 4 MG TABLET 12 MG PO ×3 (09:00→20:28)
[2021-12-28] MEDS: OXcarbazepine 300 MG TABLET PO ×3 (09:01→20:29)
[2021-12-28] MEDS: Benztropine Mesylate 0.5 MG TABLET PO ×2 (09:01→20:29)
--- NOTE | 2021-12-28 15:54 | P.PNPSI_ITS ---
Subjective Subjective Date of Service: 12/28/21 Reason For Visit: Manic psychotic agitation Interim History: Patient remains friendly, sometimes over intrusive but much less so and easily r edirectable. Intermittently talking about being God or healing people but much less so and able to carry on a conversation without referencing any grandiosity. Patient reminded documentation writer that he has been on good behavior and is hoping to discharge tomorrow. As previously mentioned, Patient's halfway staff agrees that patient is much better and able to come home. Patient sleeping well through the night. Eating well. Mental Status Exam Mental Status Exam Narrative: Pt is alert and oriented; behavior much less intrusive, friendly, cooperative; more respect of peoples boundaries; behaviors more organized; patient is not in distress; dressed in casual attire and appropriately groomed; mood is described as fantastic and affect more calm, less expansive, less irritable; eye contact appropriate; Speech is normal rate, volume and prosody and not pressured; some psychomotor agitation present; thought process is goal oriented and linear; Thought content more on day to day things, but can still get distracted by restorationist topics and delusional/grandiose preoccupation though much less; denies any SI/HI. AH unclear; Patients insight and judgment Impaired but improving and adequate. Diagnostics Vital Signs (24Hr): Vital Signs - 24 hr 12/27/21 19:14 12/28/21 08:51 Temperature 98.5 F Pulse Rate 79 80 Respiratory Rate 18 Blood Pressure 110/56 L 141/61 H Pulse Oximetry 99 BMI result Body Mass Index 25.9 Labs Results: 12/10/21 07:28 12/10/21 07:28 Medications Medications Current Medications Acetaminophen (Acetaminophen 325 Mg Tablet) 650 mg PO Q6H PRN PRN Reason: Headache/Pain Mild Scale (1-3) Al Hydroxide/Mg Hydroxide (Magnesium Hydrox/Alum Hydrox 30 Ml Oral.Susp) 30 ml PO Q6H PRN PRN Reason: Heartburn/Nausea Benztropine Mesylate (Benztropine Mesylate 0.5 Mg Tablet) 0.5 mg PO BID [facility] Last Admin: 12/28/21 09:01 Dose: 0.5 mg Hydroxyzine HCl (Hydroxyzine Hcl 25 Mg Tablet) 25 mg PO Q6H PRN PRN Reason: Anxiety Last Admin: 12/19/21 06:26 Dose: 25 mg Ibuprofen (Ibuprofen 600 Mg Tablet) 600 mg PO Q8H PRN PRN Reason: Pain, Mild (Pain Scale 1-3) [place] Carbonate ([place] Carbonate Er 300 Mg Tablet.Er) 300 mg PO BEDTIME [facility] Last Admin: 12/27/21 19:20 Dose: 300 mg Magnesium Hydroxide (Milk Of Magnesia 30 Ml Oral.Susp) 30 ml PO DAILY PRN PRN Reason: Constipation Last Admin: 12/22/21 19:03 Dose: 30 ml Oxcarbazepine (Oxcarbazepine 300 Mg Tablet) 300 mg PO TID [facility] Last Admin: 12/28/21 14:11 Dose: 300 mg Paliperidone Palmitate (Paliperidone Palmitate 234 Mg/1.5 Ml Syringe) 234 mg IM Q28D [facility] Last Admin: 12/19/21 14:46 Dose: 234 mg Perphenazine (Perphenazine 4 Mg Tablet) 12 mg PO TID [facility] Last Admin: 12/28/21 14:11 Dose: 12 mg Allergies Allergies Allergy/AdvReac Type Severity Reaction Status Date / Time Seasonal Allergies Allergy Unknown Verified 12/20/21 12:46 Assessment & Plan Assessment & Plan (1) Schizoaffective disorder: Status: Acute Code(s): F25.9 - Schizoaffective disorder, unspecified Assessment and Plan: ongoing treatment of disorganized nael Plan Patient is a 26-year-old male, living in a halfway with history of schizoph hi/schizoaffective (or bipolar) who presents for florid psychotic delusional behavior in the face of discontinuing 1 of his medications for about a week. In the ED, patient was combative, trying to hit staff and needed to be chemically restrained; it was unclear when he last got his Invega Sustenna; he was started on Depakote in the emergency room.. On admission, patientIs floridly psychotic w ith grandiose, delusional beliefs and preoccupations. History of violence or violent threats when dysregulated. Will admit for safety and medication management 12/10 remains manic, delusional; start on invega 3mg bid 12/11 remains manic, delusional and grandiose; he is pleasant and friendly but in trusive to others and needs to remain on a one-to-one he is touching people that clearly do not want to be touched. Patient says he has not gotten Invega Sustenna for a month; tomorrow Try to contact halfway and find out when he actually did get it and if he is due. 12/12 remains manic, delusional and grandiose; is still intrusive to others needing frequent redirection. However he is friendly. Need more collateral Valproic acid level is therapeutic however ammonia is mildly elevated at 74. Will probably lower Depakote dose as hyper ammonia could be contributing to confusion; however doing so can also increase manic symptoms 12/13 remains floridly delusional; at least not aggressive at all. Collateral reports he's never been dysregulated to this degree. Hx of schizoaffective and ASD. Has been taking meds and last got Invega 11/24/21. Historical report from admission 2018 shows patient was stabilized on ox carbamazepine 300 mg t.i.d., Invega Sustenna 156 mg, Ativan 1 mg b.i.d. and pe rphenazine 8 mg b.i.d.. Also on Cogentin 12/14 No change 12/16/2021 Continue current plan of care patient on ox carb seen Invega sustena back on perphenazine remains grossly grandiose not reality based engagement 1inc clonazepam to help nael 1m tid and olanzapine at night for sleep or prn psychtoic nael 12/19 remains manic, very intrusive, difficult to redirect, touching people unwantedly, grandiose delusions. Will hold order Invega Sustenna 234 mg to be given now. Will wait to see if this sub do's symptoms before making other medication adjustments 4 remains manic, intrusive, grandiose thinking he is God and healing people. It is difficult to decide whether to let medications continue to take effect or whether or not to increase medication. He is already on 3 antipsychotics, Zy prexa having been started this past weekend and is complaining of feeling a little over-sedated. Will leave medications as they are for another day; if no improvement will make changes and likely eliminate Zyprexa in favor of increasing existing home medications. There is concern of increased risk of side effects which could deter patient from medication adherence. 105 remains delusional, grandiose and intrusive. More irritable today and making some Threats, yelling at staff. Will not rescind 3 day notice saying he needs to go heel other people. Package Center Supervisor was hoping that as patient is on the same medications he has been stabilized on before, And now even at an increased dose of Invega that he would stabilize Without further medication adjustments. However patient remains floridly delusional, manic, intrusive to others and is starting to show some of the same irritability he had on admission when he was combative. Package Center Supervisor will increase perphenazine to t.i.d. to see if this can help; will discontinue Zyprexa as patient refused it anyway and since he is already on 2 antipsychotics. Tegretol is an option however this to can increase liver enzymes. dry chain worker coming in today to help assess 12/22 patient remains with grandiose delusions. He had a goal today to not be intrusive to others; though it was decreased, he was unable to refrain and remains fixated on people's demonic possession and the need to heal them; patient did posture aggressively towards documentation writer with threat if he was not discharged tomorrow; patient was however able to be redirected. This is not his baseline. Will discuss with halfway staff how far off he is from baseline; will reassess patient tomorrow but at this time it does not seem that he is ready to go home. 12/23 pt grandiose, intrusive; threatening toward staff posturing and raising fist to documentation writer and then to another female staff; continues to touch other patient despite being told it's unwanted since he remains delusional and grandi ose thinking he needs to heal them; said i could kill you to staff; refuses to retract 3 day; refuses other medication changes. Staff agrees that pt is not safe to return to the community and so will file for commitment. 12/24 pt agrees to try lithium 12/25 continue current treatment plan; there is some hope that with addition of lithium, patient may be getting a little more calm. Will continue to assess. 12/26 patient may be calming down, lest delusional, more in behavioral control, no aggression 12/27 Patient remains more calm and is able to discuss numerous things without talking about delusional/grandiose content. While it is still there, patient says he knows to keep it private from others. Patient still intermittently touching others unwantedly. Patient very much wants to heal people but also said that he knows he needs to stop that and will just use his mind to heal people instead of physical touch. Patient is tolerating his medications well. Is overall friendly in the milieu and much less intrusive. He is hoping to discharge on when his 3 day notice is up. Patient's staff at halfway agree that patient is much better and okay for discharge. -will get labs 12/28 remains improved; no aggressiveness at all, friendly, intermittently intrusive but very redirectable; grandiosity and delusions have diminished. [facility] staff agreed patient is much better and able to discharge home. patient's 3 day is due tomorrow; he does not meet criteria for involuntary commitment and patient is not in imminent risk for harm to self or others. Will honor her request for discharge. -will reach out to outpatient provider to explain change of medication regimen Plan 3 day notice; file for commitment q15 Continue lithium ER 300mg qhs (since patient had elevated ammonia on Depakote and Tegretol can also irritate the liver) DC Zyprexa q.h.s. for insomnia (started this past weekend); discontinue since patient refused it and are increasing perphenazine. Increaesd back to clonazepam 1mg b.i.d. to help subdue his manic symptoms Received Invega Susenna 234 mg on 12/19 (last got on 11/24/21) INCREASED TO Perhpenazine to 12mg TID (up from 8mg TID) 12/22 EKG Qtc WNL Continue Oxcarbazepine 300mg TID; home dose Cogentin 0.5mg BID (home med) DC'd depakote: Developed hyperammoniumemia Will continue to get collateral: dry chain worker who has known him well is coming in to help assess baseline I spent minutes with the patient and/or on the patient floor today, greater than?50% of which was spent counseling/coordinating care. Patient educated on: diagnosis Informed Consent: further education needed Reason for contiued inpatient stay Substantial Risk for: stable for discharge
[2021-12-28 18:00] VITALS: BP 107/55; PULSE 80; RESP 18; TEMP 36.3; O2SAT 98
[2021-12-28] MEDS: Lithium Carbonate ER 300 MG TABLET.ER PO (20:29)
[2021-12-29] MEDS: hydrOXYzine HCL 25 MG TABLET PO (01:22)
[2021-12-29] MEDS: Perphenazine 4 MG TABLET 12 MG PO (08:32)
[2021-12-29] MEDS: Benztropine Mesylate 0.5 MG TABLET PO (08:32)
[2021-12-29] MEDS: OXcarbazepine 300 MG TABLET PO (08:32)
[2021-12-29 08:33] VITALS: BP 106/53; PULSE 76; RESP 18; TEMP 36.4; O2SAT 98
[2021-12-29 08:34] VITALS: BMI 26.5
--- NOTE | 2021-12-29 08:44 | P.DS_ITS ---
DS: Providers Provider Date of Service: 12/29/21 Date of admission: 12/09/21 10:34 Date of discharge: 12/29/21 Primary care physician: Myrna Curtis MD Attending physician on admission: Tobias Pollack Attending physician on discharge: Tobias Pollack DS: Diagnosis Discharge Diagnosis (1) Schizoaffective disorder: Status: Acute DS: Medications Discharge Medications Home Medications: Previous Rx's Medication Instructions Recorded benztropine 0.5 mg tablet 0.5 mg PO BID 30 days #60 tabs 12/29/21 lithium carbonate 300 mg 300 mg PO BEDTIME 30 days #30 tabs 12/29/21 tablet,extended release oxcarbazepine 300 mg tablet 300 mg PO TID 30 days #90 tabs 12/29/21 paliperidone palmitate 234 mg/1.5 234 mg (1.5 mL) IM Q28D 30 days #3 12/29/21 mL intramuscular syringe (Invega mL Sustenna) perphenazine 16 mg tablet 16 mg PO BID 30 days #60 tabs 12/29/21 Mental Status Exam Mental Status Exam Narrative: Pt is alert and oriented; behavior much less intrusive, friendly, cooperative; more respect of peoples boundaries; behaviors more organized; patient is not in distress; dressed in casual attire and appropriately groomed; mood is described as fantastic and affect more calm, less expansive, less irritable; eye contact appropriate; Speech is normal rate, volume and prosody and not pressured; some psychomotor agitation present; thought process is goal oriented and linear; Thought content more on day to day things, but can still get distracted by uatsdin topics and delusional/grandiose preoccupation though much less; denies any SI/HI. AH unclear; Patients insight and judgment Impaired but improving and adequate. DS: Summary Hospital Course Hospital Course: HPI: Patient is a 26-year-old male, living in a senior care with history of schizophrenia/schizoaffective (or bipolar) who presents for florid psychotic delusional behavior in the face of discontinuing 1 of his medications for about a week.? In the ED, patient was combative, trying to hit staff and needed to be chemically restrained; it was unclear when he last got his Invega Sustenna; he was started on Depakote in the emergency room.. On admission, patientIs floridly psychotic with grandiose, delusional beliefs and preoccupations. History of violence or violent threats when dysregulated.? Will admit for safety and medication management Patient had been restarted on Meds in ED where he was aggressive. On admission, he was friendly and though very intrusive, w/out aggression; still he needed to remain on a one-to-one for a while as he is touching people that clearly do not want to be touched.? Patient had received Invega Sustenna; he remained on perphenazine. Patient however remained floridly manic, delusional and grandiose. Patient had been started on Depakote in the emergency room however his ammonia became elevated and so this was discontinued. Instead his perphenazine was increased and he was restarted on oxcarbamazepine which he had been on at a prior admission. Cogentin was also restarted given increased dose of perphenazine. Patient was also started on clonazepam b.i.d. which seemed helpful for time. He was briefly started on Zyprexa low-dose but was disco ntinued. Patient still remained manic, delusional and intrusive to others, thinking he was God, snapping his fingers in people's faces to heal them, touching them, given them knowledge and then trying to drive out demons. Patient did start to exhibit aggressive angry behaviors and postured towards staff, demanding discharge or getting angry if disagreed with. He signed a 3 day notice but then retracted and then signed another one. Given this new aggression, patient was not able to be discharged so petitioned the court. During that time patient agreed to try lithium which proved to be helpful. Patient's aggressive behaviors fully resolved. He was still grandiose and with delusions, wanting to heal others however he was much more redirectable, and willing to do his healing alcaraz more privately without being intrusive. By the end of his admission, patient was able to carry on a conversation without making grandiose and delusional comments about his alcaraz; these delusions still remain but he was able to keep these delusional beliefs more private; he was intermittently intrusive but it was mild, he was not touching people and very redirectable. Patient's senior care staff agreed that he was doing much better and able to come home. Patient civil commitment hearing was pending however patient was not in imminent risk for harm to others or himself and did not rise to the level of involuntary commitment. He is progressing back to his baseline and taking medications without problem; patient is returning to his senior care where he lives in a very structured environment with people who know him well. At this time team agrees the patient is appropriate to continue treatment in the outpatient community. Patient's request for discharge honored. Time spent discussing smoking cessation with patient: 3 to 10 minutes Status at Discharge Functional status at discharge: independent ambulation Overall status at discharge: patient is progressing back to baseline Time Spent with Patient Time attestation: Total time spent providing and/or coordinating discharge services: Time spent: Greater than 30 minutes Discharge Plan Discharge Anticipated Discharge Date/Time: 12/29/21 10:00 Patient Disposition: Home, Self-Care Discharge Diagnosis: Schizoaffective disorder, bipolar type Referrals: Fletcher Cox Visiting RN [Other] - 1 Week (fax [phone]) Therapy: Amarilis ([facility]) [Other] - 01/02/22 2:15 pm (Telehealth) Psychiatrist: Dominic Panchal ([facility]) [Other] - 01/09/22 11:20 am (Telehealth) Myrna Curtis MD [Primary Care Provider] - 01/10/22 9:15 am (IN OFFICE WITH DR. DAVID FREEMAN) Discharge Medications: New Invega Sustenna 234 mg/1.5 mL Syringe 234 mg IM Q28D 30 Days Qty: 3 0RF Rx Instructions: last received 12/19/21 benztropine 0.5 mg Tablet 0.5 mg PO BID 30 Days Qty: 60 0RF lithium carbonate 300 mg Tablet Extended Release 300 mg PO BEDTIME 30 Days Qty: 30 0RF oxcarbazepine 300 mg Tablet 300 mg PO TID 30 Days Qty: 90 0RF perphenazine 16 mg tablet 16 mg PO BID 30 Days Qty: 60 0RF Discontinued perphenazine 8 mg tablet 1 tab PO DAILY PRN (Reason: Agitation) Invega Sustenna 234 mg/1.5 mL syringe 1 syringe IM Q4W Discharge Orders: Discharge Order (Routine); Ordered 12/29/21 Ordered By: Tobias Pollack Diet: Regular diet Activity on Discharge: As tolerated Stand Alone Forms: Patient Portal Discharge page, Community Support Care Plan Goals: Maintain mood and safe behaviors Take medications as prescribed Practice coping skills Continue with outpatient providers and reach out to them as needed Health Concerns: Mood stability and behaviors Plan of Treatment: Follow up with your PCP, psychiatric provider and other outpatient providers regarding above concerns Take medications as prescribed Assessment: Risk assessment at time of discharge:? Patient was interviewed prior to discharge and found to be fully oriented and without any SI or HI. Patient has insight and demonstrates good judgment in terms of wanting to pursue treatment. Patient is not in imminent risk of harm to self or others and has a safety plan that includes presenting to the closest ER or calling 911 if feeling unsafe.? Patient has been observed closely by nursing and unit staff throughout admission; patient has not engaged in any behaviors that suggest dangerousness to self or others and has demonstrated appropriate behaviors and impulse control
[2021-12-29 09:52] LABS: Anion Gap 12 (12-20); Blood Urea Nitrogen 10 mg/dL (9-16); Carbon Dioxide 28 mmol/L (22-29); Chloride 102 mmol/L (96-108); Estimated Glomerular Filt Rate > 60; Potassium 4.1 mmol/L (3.3-5.1); Sodium 138 mmol/L (135-145)
[2021-12-29 10:48] LABS: Lithium 0.16 mmol/L (0.60-1.20)
== END 2021-12-29 10:10 | disposition home or self-care (01) | DRG 750 ==
LOC: HO.ED 12-06 21:25 → HO.PM5 12-09 10:49
PROVIDERS: Emergency Medicine; Nurse Practitioner Family; Admitting Provider Psychiatry & Neurology Psychiatry; Emergency Provider Emergency Medicine Emergency Medical Services; PCP General Practice; Visit Provider Psychiatry & Neurology Psychiatry
DX: F25.0 Schizoaffective disorder, bipolar type (principal); U07.1 COVID-19; Z79.899 Other long term (current) drug therapy
CPT/HCPCS: 36415; 80051; 80053; 80061; 80076; 80164; 80178; 80307; 81001; 82077; 82140; 82272; 82565; 83036; 84443; 84520; 85025; 87633; 87635; 90686; 93005; 99285; J2250; J2426

== ENCOUNTER 2022-01-27 08:51 | Outpatient (REF) | payer MEDICAID, SELFPAY ==
[2022-01-27 09:45] LABS: Estimated Average Glucose 111 mg/dL; Hemoglobin A1c % 5.5 %
[2022-01-27 10:05] LABS: Alanine Aminotransferase 17 U/L (0-40); Albumin Level 4.5 g/dL (3.5-5.0); Alkaline Phosphatase 49 U/L (39-117); Anion Gap 13 (12-20); Aspartate Amino Transferase 12 U/L (5-37); Bilirubin Total 0.4 mg/dL (0.0-1.0); Blood Urea Nitrogen 13 mg/dL (9-16); Calcium 9.3 mg/dL (8.4-10.2); Carbon Dioxide 27 mmol/L (22-29); Chloride 102 mmol/L (96-108); Cholesterol 165 mg/dL; Estimated Glomerular Filt Rate > 60; Glucose Random 105 mg/dL (60-115); HDL Cholesterol 52 mg/dL; LDL Cholesterol Calculated 103 mg/dl; Potassium 4.1 mmol/L (3.3-5.1); Sodium 138 mmol/L (135-145); Total Protein 7.2 g/dL (6.5-8.0); Triglycerides 52 mg/dL
[2022-01-27 10:26] LABS: T4 Thyroxine 4.8 ug/dL (4.5-12.0); Thyroid Stimulating Hormone 1.59 uIU/mL (0.32-4.0)
[2022-01-30 10:17] LABS: Prolactin 19.1 ng/mL (2.0-18.0)
== END 2022-01-27 08:52 | disposition home or self-care (01) ==
LOC: HO.LAB 08:51
PROVIDERS: Visit Provider Psychiatry & Neurology Psychiatry
DX: Z79.899 Other long term (current) drug therapy (principal)
CPT/HCPCS: 36415; 80053; 80061; 80178; 83036; 84146; 84436; 84443

== ENCOUNTER 2022-02-24 08:15 | Outpatient (REF) | payer MEDICAID, SELFPAY ==
[2022-02-24 08:48] LABS: Lithium 0.36 mmol/L (0.60-1.20)
[2022-02-24 08:52] LABS: Estimated Average Glucose 117 mg/dL; Hemoglobin A1c % 5.7 %
[2022-02-24 09:38] LABS: Alanine Aminotransferase 14 U/L (0-40); Albumin Level 4.6 g/dL (3.5-5.0); Alkaline Phosphatase 46 U/L (39-117); Anion Gap 9 (12-20); Aspartate Amino Transferase 12 U/L (5-37); Bilirubin Total 0.3 mg/dL (0.0-1.0); Blood Urea Nitrogen 10 mg/dL (9-16); Calcium 9.5 mg/dL (8.4-10.2); Carbon Dioxide 29 mmol/L (22-29); Chloride 105 mmol/L (96-108); Cholesterol 160 mg/dL; Estimated Glomerular Filt Rate > 60; Glucose Random 115 mg/dL (60-115); HDL Cholesterol 49 mg/dL; LDL Cholesterol Calculated 103 mg/dl; Potassium 4.4 mmol/L (3.3-5.1); Sodium 139 mmol/L (135-145); T4 Thyroxine 5.3 ug/dL (4.5-12.0); Thyroid Stimulating Hormone 1.34 uIU/mL (0.32-4.0); Total Protein 7.2 g/dL (6.5-8.0); Triglycerides 44 mg/dL
[2022-02-25 18:48] LABS: Prolactin 20.3 ng/mL (2.0-18.0)
== END 2022-02-24 08:16 | disposition home or self-care (01) ==
LOC: HO.LAB 08:15
PROVIDERS: PCP General Practice; Visit Provider Psychiatry & Neurology Psychiatry
DX: Z79.899 Other long term (current) drug therapy (principal)
CPT/HCPCS: 36415; 80053; 80061; 80178; 83036; 84146; 84436; 84443

== ENCOUNTER 2022-03-14 15:42 | Emergency (ER) | payer MEDICAID, SELFPAY ==
[2022-03-14 16:00] VITALS: BP 128/90; BP 140/85; PULSE 104; PULSE 98; RESP 16; TEMP 36.7; O2SAT 98; BMI 27.4
[2022-03-14 16:38] LABS: MANUAL DIFF FLAG NO
[2022-03-14 16:40] LABS: Basophils Percent Auto 0.5 % (0-2); Eosinophils Absolute Auto 0.1 X10*3/uL (0.0-0.4); Eosinophils Percent Auto 1.4 % (0-4); Hemoglobin 13.2 g/dl (14.0-18.0); Imm Gran Abs Auto 0.04 X10*3/uL (0.00-0.03); Imm Gran Pct Auto 0.5 % (0.0-0.4); Lymphocytes Absolute Auto 2.8 X10*3/uL (1.2-4.9); Lymphocytes Percent Auto 34.6 % (20-40); Mean Corpuscular Hemoglobin 28.5 pg (27.0-33.0); Mean Corpuscular Volume 86.4 fL (80.0-98.0); Mean Platelet Volume 9.2 fL (9.4-12.4); Monocytes Absolute Auto 0.6 X10*3/uL (0.1-1.2); Monocytes Percent Auto 7.7 % (2-11); Neutrophils Absolute Auto 4.4 x10*3/uL (2.0-8.3); Neutrophils Percent Auto 55.3 % (45-73); Platelet Count 197 X10*3/uL (160-400); Red Blood Count 4.63 X10*6/uL (4.60-5.80)
--- NOTE | 2022-03-14 16:49 | ED_ITS ---
HPI - Psych General Chief Complaint: Psychiatric Symptoms Stated Complaint: [facility]IS [facility] Time Seen by Provider: 03/14/22 15:51 Source: patient and EMS Mode of arrival: EMS Limitations: no limitations History of Present Illness HPI Narrative: Patient is a 27-year-old male who presents to the emergency department via EMS [facility]. Per EMS report patient has been having auditory hallucinations, for which she was sent to the emergency department. Patient reports to me that he is having auditory hallucinations, hearing voices that tell him that he is able to heal people, in addition he reports visual hallucinations stating that he sees angels all the time. he states that he has been compliant with taking all of his medications. Denies any suicidal or homicidal ideations. Patient is without any physical complaints when asked. Related Data Previous Rx's Medication Instructions Recorded benztropine 0.5 mg tablet 0.5 mg PO BID 30 days #60 tabs 12/29/21 lithium carbonate 300 mg 300 mg PO BEDTIME 30 days #30 tabs 12/29/21 tablet,extended release oxcarbazepine 300 mg tablet 300 mg PO TID 30 days #90 tabs 12/29/21 paliperidone palmitate 234 mg/1.5 234 mg (1.5 mL) IM Q28D 30 days #3 12/29/21 mL intramuscular syringe (Invega mL Sustenna) perphenazine 16 mg tablet 16 mg PO BID 30 days #60 tabs 12/29/21 Allergies Allergy/AdvReac Type Severity Reaction Status Date / Time Seasonal Allergies Allergy Unknown Verified 12/20/21 12:46 Review of Systems Review of Systems: Constitutional : No Fever, No Chills ENT/Mouth : No Ear Pain, No Nasal Congestion, No sore throat Eyes: No Eye Pain, No Swelling, No Redness Cardiovascular : No Chest Pain, No SOB Respiratory : No Cough, No Sputum, No Dyspnea Gastrointestinal : No Nausea, No Vomiting, No Diarrhea, No Hematochezia, No Me joey Genitourinary : No Dysuria, No Urinary Frequency, No Hematuria Musculoskeletal : No Myalgias Skin : No Skin Lesions, No rash Neuro : No Weakness, No Numbness, No Paresthesias, No Dizziness, No Headache Psych : denies Anxiety, Denies Depression, denies SI/HI, positive auditory and visual hallucinations Heme/Lymph: No Lymphadenopathy Endocrine : No Polyuria, No Polydipsia Yes all other systems are reviewed and are negative [facility] Past Medical History Attestation statement: The following information was validated with the patient. Source: old records reviewed Medical History Bipolar 1 disorder, manic, moderate COVID-19 Depression Schizoaffective disorder Schizophrenia Social History Social History Household Members: Other Household Members Other:: [facility]ent[facility] residents and staff Housing: Other Housing Other:: Custodial Patient Tobacco Use Status: Never used Tobacco Advance Directives: No Advance Directives Information Provided: No service: No Physical Exam Vital Signs: Vital Signs: Last Vital Signs Temp 98.0 F 03/14/22 16:00 Pulse 98 03/14/22 16:00 Resp 16 03/14/22 18:00 BP 140/85 H 03/14/22 16:00 Pulse Ox 98 03/14/22 16:00 O2 Del Method 03/14/22 16:00 BMI result Body Mass Index 27.4 Appearance: Alert.?Oriented to person, place and time. No acute distress.?Normal affect. Eyes: Pupils equal, round and reactive to light.? ENT: Pharynx normal.?? Neck: Normal inspection.? Neck supple.?? CVS: Heart sounds normal. Normal heart rate and rhythm.? Pulses normal.?? Respiratory: No respiratory distress.? Lung sounds clear to auscultation bilaterally?? Abdomen: Soft and non-tender. Normoactive bowel sounds. ?? Skin: Skin warm and dry.? Normal skin color.? ?? Extremities: No lower extremity edema.? Neuro: Moves all extremities spontaneously. Sensation intact bilaterally. CN II- XII intact. No focal neuro deficits. Ambulates with normal steady gait. Course Reevaluation(s) Reevaluation #1: COVID- 19 testing is negative. CBC and CMP are overall unremarkable without significant abnormality. urinalysis pending at this time, patient aware of need for sample. He was placed in physician observation at this time, the reason b eing that he requires additional time be evaluated by [facility] for determination of inpatient psychiatric services. He is in no apparent distress. Remains calm and cooperative Medical Decision Making Medical Decision Making MDM Narrative: patient is a 27-year-old male past medical history of bipolar disorder, schizophrenia, depression who presents to emergency department via EMS for auditory and visual hallucinations. Patient is calm and cooperative at the time of examination. Is without any specific complaints. Physical examination is benign. Will obtain basic labs, COVID-19 testing, and will refer to [facility] for evaluation as to whether inpatient psychiatric services are required. Differential Diagnosis Differential Diagnoses: The differential diagnosis associated with the presentation includes Lab Data [facility] Lab Attestation statement: I reviewed the patient's lab results. Result Diagrams: 03/14/22 16:33 03/14/22 16:33 Labs: Lab Results 03/14/22 03/14/22 03/14/22 Range/Units 16:33 16:33 16:33 WBC 8.0 (4.8-10.8) X10*3/uL RBC 4.63 (4.60-5.80) X10*6/uL Hgb 13.2 L (14.0-18.0) g/dl Hct 40.0 L (42.0-52.0) % MCV 86.4 (80.0-98.0) fL MCH 28.5 (27.0-33.0) pg MCHC 33.0 (31.0-36.0) g/dl RDW 13.0 (11.0-16.0) % Plt Count 197 (160-400) X10*3/uL MPV 9.2 L (9.4-12.4) fL Immature Gran % (Auto) 0.5 H (0.0-0.4) % Neut % (Auto) 55.3 (45-73) % Lymph % (Auto) 34.6 (20-40) % [place] % (Auto) 7.7 (2-11) % Eos % (Auto) 1.4 (0-4) % Baso % (Auto) 0.5 (0-2) % Lymph # (Auto) 2.8 (1.2-4.9) X10*3/uL [place] # (Auto) 0.6 (0.1-1.2) X10*3/uL Eos # (Auto) 0.1 (0.0-0.4) X10*3/uL Baso # (Auto) 0.0 (0.0-0.2) X10*3/uL Abs Immat Gran (auto) 0.04 H (0.00-0.03) X10*3/uL Absolute Neuts (auto) 4.4 (2.0-8.3) x10*3/uL Absolute Nucleated RBC 0.000 (0.0-0.012) X10*3/uL Nucleated RBC % (auto) 0.0 (0.0-0.2) /100WBC Sodium 140 (135-145) mmol/L Potassium 4.4 (3.3-5.1) mmol/L Chloride 104 (96-108) mmol/L Carbon Dioxide 28 (22-29) mmol/L Anion Gap 12 (12-20) BUN 15 (9-16) mg/dL Creatinine 0.90 (0.5-1.4) mg/dL Estim Creat Clear Calc 113.5 Estimated GFR > 60 Random Glucose 118 H (60-115) mg/dL Calcium 9.4 (8.4-10.2) mg/dL Total Bilirubin 0.3 (0.0-1.0) mg/dL AST 15 (5-37) U/L ALT 31 (0-40) U/L Alkaline Phosphatase 48 (39-117) U/L Total Protein 7.1 (6.5-8.0) g/dL Albumin 4.4 (3.5-5.0) g/dL Ethyl Alcohol < 10 mg/dL COVID-19 ([facility]OU[facility]) Negative (Negative) COVID-19 Clin Com See Note External Record Review External record reviewed: Inpatient record patient admitted for inpatient psychiatric services December 2021; history of psychotic delusional behaviors, at that time was not taking medications, was becoming combative and intrusive, he was ultimately stabilized back to baseline in able to return back to his [facility] Discharge Plan Discharge Clinical Impression: Schizoaffective disorder, Hallucinations Patient Disposition: Still a Patient Prescriptions: No Action Invega Sustenna 234 mg/1.5 mL Syringe 234 mg IM Q28D 30 Days Qty: 3 0RF Rx Instructions: last received 12/19/21 benztropine 0.5 mg Tablet 0.5 mg PO BID 30 Days Qty: 60 0RF lithium carbonate 300 mg Tablet Extended Release 300 mg PO BEDTIME 30 Days Qty: 30 0RF oxcarbazepine 300 mg Tablet 300 mg PO TID 30 Days Qty: 90 0RF perphenazine 16 mg tablet 16 mg PO BID 30 Days Qty: 60 0RF Interventions: [place]-Suicide Risk Severity Scale Last Done: 03/14/22 16:02
[2022-03-14 16:53] LABS: COVID-19 Test Negative (Negative); IDNOW Serial# 9DB6401D
[2022-03-14 17:08] LABS: Alanine Aminotransferase 31 U/L (0-40); Albumin Level 4.4 g/dL (3.5-5.0); Alkaline Phosphatase 48 U/L (39-117); Anion Gap 12 (12-20); Aspartate Amino Transferase 15 U/L (5-37); Bilirubin Total 0.3 mg/dL (0.0-1.0); Blood Urea Nitrogen 15 mg/dL (9-16); Calcium 9.4 mg/dL (8.4-10.2); Carbon Dioxide 28 mmol/L (22-29); Chloride 104 mmol/L (96-108); Creatinine Clr Calc Pharmacy 113.5; Estimated Glomerular Filt Rate > 60; Ethanol < 10 mg/dL; Glucose Random 118 mg/dL (60-115); Potassium 4.4 mmol/L (3.3-5.1); Sodium 140 mmol/L (135-145); Total Protein 7.1 g/dL (6.5-8.0)
[2022-03-14 18:00] VITALS: RESP 16
--- NOTE | 2022-03-14 18:12 | PC.NURSE ---
Addendum entered by Melissa Gallagher, [facility] 03/14/22 19:14: Error: information contained in this note is inaccurate and mistakenly entered. Pt is awaiting crisis evaluation, plan of care and disposition have yet to be determined. Original Note: Per Dr. Pollack: D/c tomorrow after IM Invega shot.
--- NOTE | 2022-03-14 19:21 | MHC.CARE ---
Smart sheet submitted
[2022-03-14] MEDS: Paliperidone Palmitate 234 MG/1.5 ML SYRINGE IM (19:40)
[2022-03-14 19:55] LABS: Lithium 0.12 mmol/L (0.60-1.20)
[2022-03-14 20:15] VITALS: BP 130/87; PULSE 81; RESP 16; TEMP 36.8; O2SAT 100
[2022-03-14] MEDS: OXcarbazepine 300 MG TABLET PO (20:27)
[2022-03-14] MEDS: Perphenazine 8 MG TABLET 16 MG PO (20:27)
[2022-03-14] MEDS: Benztropine Mesylate 0.5 MG TABLET PO (20:27)
[2022-03-14] MEDS: Lithium Carbonate ER 300 MG TABLET.ER 600 MG PO (20:27)
[2022-03-14 21:14] LABS: Appearance Urine Clear; Color Urine Yellow; Glucose Urine UA Negative (Negative); Leukocyte Esterase Urine Negative (Negative); Nitrite Urine Negative (Negative); PH 5.5 (5.0-9.0); Specific Gravity - Urine 1.015 (1.005-1.025); Urine Blood Negative (Negative); Urine Ketones Negative (Negative); Urine Protein Negative (Neg-Trace)
[2022-03-14] MEDS: Acetaminophen 325 MG TABLET 650 MG PO (21:21)
[2022-03-14 21:27] LABS: Amphetamine Screen Urine Not Detected (Not Detect); Barbiturates, Urine Not Detected (Not Detect); Benzodiazepines Screen Urine Not Detected (Not Detect); Cannabinoid Screen Urine Not Detected (Not Detect); Cocaine Screen Urine Not Detected (Not Detect); Fentanyl, urine Not Detected (Not Detect); Opiate Screen Urine Not Detected (Not Detect); Phencyclidine Screen Urine Not Detected (Not Detect)
[2022-03-15 01:26] VITALS: BP 121/72; PULSE 81; RESP 18; TEMP 36.5; O2SAT 97
--- NOTE | 2022-03-15 05:47 | PC.NURSE ---
Patient slept through the night, no distress observed/reported, behavior hyper-verbal but non concerning, thought content religiously preoccupied and delusional thinking that he has healing power, medication compliant, monthly invega 234 mg which was due was administered at 1940, patient was evaluated by care team, disposition current provider, patient will be discharged in the morning, discharge paper all ready, [place] [facility] come pick him up today at 0900. in the event of delay call should be placed to Mary Lin, ui programmer at [phone]. Per Mary has residential mortgage manager appointment today, VSS, will continue to monitor.
[2022-03-15 07:27] VITALS: BP 127/69; PULSE 72; RESP 16; TEMP 36.9; O2SAT 98
[2022-03-15] MEDS: OXcarbazepine 300 MG TABLET PO (08:18)
[2022-03-15] MEDS: Perphenazine 8 MG TABLET 16 MG PO (08:18)
[2022-03-15] MEDS: Benztropine Mesylate 0.5 MG TABLET PO (08:18)
--- NOTE | 2022-03-15 11:44 | MHC.CARE ---
Pt discharged from [facility] today 03/15/22 and will follow up with community providers.
== END 2022-03-15 08:44 | disposition home or self-care (01) ==
PROVIDERS: Nurse Practitioner Family; Emergency Provider Emergency Medicine Emergency Medical Services; PCP General Practice
DX: F20.0 Paranoid schizophrenia (principal); Z20.822 Contact with and (suspected) exposure to COVID-19; Z79.899 Other long term (current) drug therapy
CPT/HCPCS: 36415; 80053; 80178; 80307; 81003; 82077; 85025; 87635; 96372; 99285; J2426

== ENCOUNTER 2022-03-27 09:51 | Outpatient (REF) | payer MEDICAID, SELFPAY ==
[2022-03-27 11:24] LABS: Estimated Average Glucose 108 mg/dL; Hemoglobin A1c % 5.4 %
[2022-03-27 11:37] LABS: Alanine Aminotransferase 18 U/L (0-40); Albumin Level 4.5 g/dL (3.5-5.0); Alkaline Phosphatase 55 U/L (39-117); Anion Gap 13 (12-20); Aspartate Amino Transferase 16 U/L (5-37); Bilirubin Total 0.3 mg/dL (0.0-1.0); Blood Urea Nitrogen 9 mg/dL (9-16); Calcium 9.7 mg/dL (8.4-10.2); Carbon Dioxide 27 mmol/L (22-29); Chloride 103 mmol/L (96-108); Cholesterol 154 mg/dL; Estimated Glomerular Filt Rate > 60; Glucose Random 105 mg/dL (60-115); HDL Cholesterol 46 mg/dL; LDL Cholesterol Calculated 83 mg/dl; Potassium 4.5 mmol/L (3.3-5.1); Sodium 138 mmol/L (135-145); Total Protein 7.3 g/dL (6.5-8.0); Triglycerides 125 mg/dL
[2022-03-27 12:19] LABS: Thyroid Stimulating Hormone 1.77 uIU/mL (0.32-4.0)
[2022-03-29 05:08] LABS: Prolactin 22.9 ng/mL (2.0-18.0)
== END 2022-03-27 09:52 | disposition home or self-care (01) ==
LOC: HO.LAB 09:51
PROVIDERS: PCP General Practice; Visit Provider Psychiatry & Neurology Psychiatry
DX: Z79.899 Other long term (current) drug therapy (principal)
CPT/HCPCS: 36415; 80053; 80061; 83036; 84146; 84436; 84443

== ENCOUNTER 2022-04-26 08:23 | Outpatient (REF) | payer MEDICAID, SELFPAY ==
[2022-04-26 09:33] LABS: Estimated Average Glucose 108 mg/dL; Hemoglobin A1c % 5.4 %
[2022-04-26 10:10] LABS: Lithium 0.58 mmol/L (0.60-1.20)
[2022-04-26 10:19] LABS: Alanine Aminotransferase 18 U/L (0-40); Albumin Level 4.3 g/dL (3.5-5.0); Alkaline Phosphatase 47 U/L (39-117); Anion Gap 15 (12-20); Aspartate Amino Transferase 17 U/L (5-37); Bilirubin Total 0.3 mg/dL (0.0-1.0); Blood Urea Nitrogen 10 mg/dL (9-16); Calcium 9.4 mg/dL (8.4-10.2); Carbon Dioxide 25 mmol/L (22-29); Chloride 105 mmol/L (96-108); Cholesterol 164 mg/dL; Estimated Glomerular Filt Rate > 60; Glucose Random 112 mg/dL (60-115); HDL Cholesterol 50 mg/dL; LDL Cholesterol Calculated 102 mg/dl; Potassium 4.2 mmol/L (3.3-5.1); Sodium 141 mmol/L (135-145); Total Protein 6.8 g/dL (6.5-8.0); Triglycerides 61 mg/dL
[2022-04-26 10:39] LABS: Thyroid Stimulating Hormone 1.91 uIU/mL (0.32-4.0)
[2022-04-27 05:33] LABS: Prolactin 19.3 ng/mL (2.0-18.0)
== END 2022-04-26 08:24 | disposition home or self-care (01) ==
LOC: HO.LAB 08:23
PROVIDERS: PCP General Practice; Visit Provider Psychiatry & Neurology Psychiatry
DX: Z79.899 Other long term (current) drug therapy (principal)
CPT/HCPCS: 36415; 80053; 80061; 80178; 83036; 84146; 84443

== ENCOUNTER 2022-05-22 08:30 | Outpatient (REF) | payer MEDICAID, SELFPAY ==
[2022-05-22 09:23] LABS: Estimated Average Glucose 108 mg/dL; Hemoglobin A1c % 5.4 %
[2022-05-22 09:53] LABS: Alanine Aminotransferase 30 U/L (0-40); Albumin Level 4.5 g/dL (3.5-5.0); Alkaline Phosphatase 53 U/L (39-117); Anion Gap 14 (12-20); Aspartate Amino Transferase 20 U/L (5-37); Bilirubin Total 0.6 mg/dL (0.0-1.0); Blood Urea Nitrogen 13 mg/dL (9-16); Calcium 9.3 mg/dL (8.4-10.2); Carbon Dioxide 26 mmol/L (22-29); Chloride 104 mmol/L (96-108); Cholesterol 189 mg/dL; Estimated Glomerular Filt Rate > 60; Glucose Random 123 mg/dL (60-115); HDL Cholesterol 50 mg/dL; LDL Cholesterol Calculated 109 mg/dl; Potassium 4.4 mmol/L (3.3-5.1); Sodium 140 mmol/L (135-145); Total Protein 7.2 g/dL (6.5-8.0); Triglycerides 151 mg/dL
[2022-05-22 10:10] LABS: TSH reflex Free T4 2.05 uIU/mL (0.32-4.0)
[2022-05-23 05:34] LABS: Prolactin 16.4 ng/mL (2.0-18.0)
== END 2022-05-22 08:31 | disposition home or self-care (01) ==
LOC: HO.LAB 08:30
PROVIDERS: PCP General Practice; Visit Provider Psychiatry & Neurology Psychiatry
DX: Z79.899 Other long term (current) drug therapy (principal)
CPT/HCPCS: 36415; 80053; 80061; 83036; 84146; 84443

== ENCOUNTER 2022-06-19 08:20 | Outpatient (REF) | payer MEDICAID, SELFPAY ==
[2022-06-19 09:20] LABS: Estimated Average Glucose 100 mg/dL; Hemoglobin A1c % 5.1 %
[2022-06-19 10:03] LABS: Alanine Aminotransferase 14 U/L (0-40); Albumin Level 4.6 g/dL (3.5-5.0); Alkaline Phosphatase 54 U/L (39-117); Anion Gap 10 (12-20); Aspartate Amino Transferase 16 U/L (5-37); Bilirubin Total 0.5 mg/dL (0.0-1.0); Blood Urea Nitrogen 12 mg/dL (9-16); Calcium 9.4 mg/dL (8.4-10.2); Carbon Dioxide 29 mmol/L (22-29); Chloride 103 mmol/L (96-108); Cholesterol 173 mg/dL; Estimated Glomerular Filt Rate > 60; Glucose Random 103 mg/dL (60-115); HDL Cholesterol 33 mg/dL; LDL Cholesterol Calculated 106 mg/dl; Potassium 3.9 mmol/L (3.3-5.1); Sodium 138 mmol/L (135-145); Triglycerides 174 mg/dL
[2022-06-19 10:06] LABS: T4 Thyroxine 5.1 ug/dL (4.5-12.0); Thyroid Stimulating Hormone 1.64 uIU/mL (0.32-4.0)
[2022-06-20 09:04] LABS: Prolactin 18.7 ng/mL (2.0-18.0)
[2022-06-20 21:48] LABS: Thyroglobulin 8.1 ng/mL; Thyroglobulin Antibodies <1 IU/mL (< or = 1)
== END 2022-06-19 08:21 | disposition home or self-care (01) ==
LOC: HO.LAB 08:20
PROVIDERS: Visit Provider Psychiatry & Neurology Psychiatry
DX: Z79.899 Other long term (current) drug therapy (principal)
CPT/HCPCS: 36415; 80053; 80061; 83036; 84146; 84432; 84436; 84443; 86800

== ENCOUNTER 2022-07-28 09:47 | Outpatient (REF) | payer MEDICAID, SELFPAY ==
[2022-07-28 10:45] LABS: Lithium 0.77 mmol/L (0.60-1.20)
[2022-07-28 10:46] LABS: Estimated Average Glucose 105 mg/dL; Hemoglobin A1c % 5.3 %
[2022-07-28 11:07] LABS: Alanine Aminotransferase 19 U/L (0-40); Albumin Level 4.6 g/dL (3.5-5.0); Alkaline Phosphatase 56 U/L (39-117); Anion Gap 8 (12-20); Aspartate Amino Transferase 16 U/L (5-37); Bilirubin Total 0.4 mg/dL (0.0-1.0); Blood Urea Nitrogen 7 mg/dL (9-16); Calcium 9.4 mg/dL (8.4-10.2); Carbon Dioxide 31 mmol/L (22-29); Chloride 105 mmol/L (96-108); Cholesterol 168 mg/dL; Estimated Glomerular Filt Rate > 60; Glucose Random 119 mg/dL (60-115); HDL Cholesterol 47 mg/dL; LDL Cholesterol Calculated 103 mg/dl; Potassium 4.4 mmol/L (3.3-5.1); Sodium 140 mmol/L (135-145); Total Protein 7.3 g/dL (6.5-8.0); Triglycerides 94 mg/dL
[2022-07-28 11:15] LABS: T4 Thyroxine 6.1 ug/dL (4.5-12.0); Thyroid Stimulating Hormone 2.63 uIU/mL (0.32-4.0)
[2022-07-30 02:37] LABS: Prolactin 14.6 ng/mL (2.0-18.0)
== END 2022-07-28 09:48 | disposition home or self-care (01) ==
LOC: HO.LAB 09:47
PROVIDERS: PCP General Practice; Visit Provider Psychiatry & Neurology Psychiatry
DX: Z79.899 Other long term (current) drug therapy (principal)
CPT/HCPCS: 36415; 80053; 80061; 80178; 83036; 84146; 84436; 84443

== ENCOUNTER 2022-08-16 12:47 | Emergency (ER) | payer MEDICAID, SELFPAY ==
--- NOTE | ~2022-08-16 | XR_ITS ---
EXAMINATION: XR LUMBOSACRAL SPINE CLINICAL INFORMATION: Low back pain COMPARISON: None available. TECHNIQUE: Three views of the lumbosacral spine. FINDINGS: The vertebral bodies and posterior elements are normal. The disc spaces are preserved and the vertebral alignment is normal. The paraspinal soft tissues are normal. XR/XR lumbar spine 2-3V IMPRESSION: Unremarkable examination.
[2022-08-16 13:08] VITALS: BP 112/63; PULSE 92; RESP 18; TEMP 36.8; O2SAT 99; BMI 30.4
--- NOTE | 2022-08-16 13:22 | ED_ITS ---
HPI - Back Pain/Injury General Chief Complaint: Back Pain/Injury Stated Complaint: Lower back pain Time Seen by Provider: 08/16/22 16:05 History of Present Illness HPI Narrative: Patient complains of low back pain that developed yesterday night after helping somewhat lift heavy things, there is no radiation of pain no numbness weakness or tingling, no changes to bowel or bladder no muscle weakness no loss of sensation no fever no IV drug use no chest pain no abdominal pain no dysuria no skin Related Data Home Medications Medication Instructions Recorded Confirmed lithium carbonate 300 mg 2 tab PO BEDTIME 03/14/22 03/14/22 tablet,extended release Previous Rx's Medication Instructions Recorded benztropine 0.5 mg tablet 0.5 mg PO BID 30 days #60 tabs 12/29/21 oxcarbazepine 300 mg tablet 300 mg PO TID 30 days #90 tabs 12/29/21 paliperidone palmitate 234 mg/1.5 234 mg (1.5 mL) IM Q28D 30 days #3 12/29/21 mL intramuscular syringe (Invega mL Sustenna) perphenazine 16 mg tablet 16 mg PO BID 30 days #60 tabs 12/29/21 acetaminophen 500 mg tablet 1,000 mg PO QID PRN pain #30 tabs 08/16/22 cyclobenzaprine 5 mg tablet 5 mg PO TID PRN muscle spasm #10 08/16/22 tabs ibuprofen 600 mg tablet 600 mg PO Q6H PRN pain #20 tabs 08/16/22 Allergies Allergy/AdvReac Type Severity Reaction Status Date / Time Seasonal Allergies Allergy Unknown Verified 12/20/21 12:46 [facility] Past Medical History Source: nursing notes reviewed Medical History Bipolar 1 disorder, manic, moderate COVID-19 Depression Schizoaffective disorder Schizophrenia Social History Social History Household Members: Other Household Members Other:: custodial residents and staff Housing: Other Housing Other:: Skilled Nursing Alcohol intake: never Patient Tobacco Use Status: Never used Tobacco service: No Physical Exam Vital Signs: Vital Signs: Last Vital Signs Temp 98.5 F 08/16/22 16:23 Pulse 66 05/31/23 18:02 Resp 17 08/16/22 18:02 BP 126/70 08/16/22 18:02 Pulse Ox 100 08/16/22 18:02 O2 Del Method Room Air 08/16/22 18:02 BMI result Body Mass Index 30.4 General appearance no distress The head is normocephalic atraumatic Neck is supple nontender Chest wall nontender no respiratory distress Abdomen soft nontender The back had bilateral paraspinal soft tissue lower lumbar tenderness no focal bony tenderness, pain reproduced with movement, skin of the back was normal Extremities full range of motion x4 Neuro gait and balance are normal, motor is 5/5 x4, sensation is intact and symmetrical in distal extremities Course Course Course Narrative: This is an RME: Additional HPI, ROS, PE not included below will be deferred to primary provider. This is a [id number] presenting to the emergency department wtih complaints of low back pain since yesterday. States that he was helping a friend move furniture, developed low back pain last night, woke up this AM with worsening pain. TTP over lumbar paraspinous muscles. No weakness, numbness, tingling, saddle anesthesia, bladder/bowel incontinence. VSS. Plan: xray lumbar spine ordered. Spine x-ray was normal Patient with reproducible musculoskeletal low back pain with no evidence of neurologic deficit no change to bowel or bladder is discharged Medications Administered Discontinued Medications Generic Name Dose Route Start Last Admin Trade Name Freq PRN Reason Stop Dose Admin Ketorolac Tromethamine 30 mg 08/16/22 17:25 08/16/22 17:56 Ketorolac Tromethamine 30 Mg/Ml Vial IM 08/16/22 17:26 30 mg ONCE ONE Administration Discharge Plan Discharge Clinical Impression: Back pain Patient Disposition: Home, Self-Care Additional Instructions: use Tylenol or Motrin as needed for pain Muscle relaxer cyclobenzaprine if needed Return any concerns Follow with your primary doctor Most back pain is self limited it gets better in a reasonable time frame Prescriptions: New acetaminophen 500 mg tablet 1,000 mg PO QID PRN (Reason: pain) Qty: 30 0RF ibuprofen 600 mg tablet 600 mg PO Q6H PRN (Reason: pain) Qty: 20 0RF cyclobenzaprine 5 mg tablet 5 mg PO TID PRN (Reason: muscle spasm) Qty: 10 0RF No Action lithium carbonate 300 mg tablet extended release 2 tab PO BEDTIME Invega Sustenna 234 mg/1.5 mL Syringe 234 mg IM Q28D 30 Days Qty: 3 0RF Rx Instructions: last received 12/19/21 benztropine 0.5 mg Tablet 0.5 mg PO BID 30 Days Qty: 60 0RF oxcarbazepine 300 mg Tablet 300 mg PO TID 30 Days Qty: 90 0RF perphenazine 16 mg tablet 16 mg PO BID 30 Days Qty: 60 0RF Interventions: ED Discharge Assessment Last Done: 08/16/22 18:04 Discharge Date/Time: 08/16/22 18:05
[2022-08-16 16:23] VITALS: BP 110/66; PULSE 67; RESP 18; TEMP 36.9; O2SAT 99
--- NOTE | 2022-08-16 16:40 | PC.NURSE ---
Patient was helping friend move yesterday and afterwards noted some pain to his lower back. Pain is worse when patient is sitting or laying down and pain gets better when he stands up. No s/s of distress at this time.
[2022-08-16] MEDS: Ketorolac Tromethamine 30 MG/ML VIAL IM (17:56)
[2022-08-16 18:02] VITALS: BP 126/70; PULSE 66; RESP 17; O2SAT 100
== END 2022-08-16 18:05 | disposition home or self-care (01) ==
PROVIDERS: Emergency Provider Emergency Medicine; PCP General Practice
DX: M54.50 Low back pain, unspecified (principal)
CPT/HCPCS: 72100; 96372; 99284; J1885

== ENCOUNTER 2022-08-25 08:38 | Outpatient (REF) | payer MEDICAID, SELFPAY ==
[2022-08-25 09:31] LABS: Estimated Average Glucose 103 mg/dL; Hemoglobin A1c % 5.2 %
[2022-08-25 09:59] LABS: Lithium 0.77 mmol/L (0.60-1.20)
[2022-08-25 10:22] LABS: Alanine Aminotransferase 14 U/L (0-40); Albumin Level 4.4 g/dL (3.5-5.0); Alkaline Phosphatase 52 U/L (39-117); Anion Gap 13 (12-20); Aspartate Amino Transferase 13 U/L (5-37); Bilirubin Total 0.3 mg/dL (0.0-1.0); Blood Urea Nitrogen 7 mg/dL (9-16); Calcium 10.3 mg/dL (8.4-10.2); Carbon Dioxide 27 mmol/L (22-29); Chloride 104 mmol/L (96-108); Cholesterol 168 mg/dL; Estimated Glomerular Filt Rate > 60; Glucose Random 116 mg/dL (60-115); HDL Cholesterol 33 mg/dL; LDL Cholesterol Calculated 102 mg/dl; Sodium 140 mmol/L (135-145); Total Protein 7.1 g/dL (6.5-8.0); Triglycerides 169 mg/dL
[2022-08-25 10:28] LABS: T4 Thyroxine 6.1 ug/dL (4.5-12.0); Thyroid Stimulating Hormone 2.85 uIU/mL (0.32-4.0)
[2022-08-26 14:09] LABS: Prolactin 17.2 ng/mL (2.0-18.0)
== END 2022-08-25 08:39 | disposition home or self-care (01) ==
LOC: HO.LAB 08:38
PROVIDERS: Visit Provider Psychiatry & Neurology Psychiatry
DX: Z79.899 Other long term (current) drug therapy (principal)
CPT/HCPCS: 36415; 80053; 80061; 80178; 83036; 84146; 84436; 84443

== ENCOUNTER 2022-10-21 16:23 | Emergency (ER) | payer MEDICAID, SELFPAY ==
[2022-10-21 16:32] VITALS: BP 122/78; PULSE 89; RESP 18; TEMP 36.8; O2SAT 98; BMI 31.8
[2022-10-21 17:08] LABS: IDNOW Serial# 08D9AD1C; Strep A Nucleic Acid Negative (Negative)
[2022-10-21] MEDS: Fluticasone Propionate Nasal 16 GM SPRAY 2 SPRAY NOSTRIL-B (17:37)
[2022-10-21] MEDS: Loratadine 10 MG TABLET PO (17:37)
--- NOTE | 2022-10-21 17:52 | ED.URI ---
HPI - URI/Sore Throat General Chief Complaint: General Medical Stated Complaint: sore throat headache Time Seen by Provider: 10/21/22 16:28 Source: patient and EMS Mode of arrival: EMS Limitations: no limitations History of Present Illness HPI Narrative: 27yoM with a PMHx of schizoaffective disorder and seasonal allergies who is [facility] the [facility] did not give him his Claritin and Flonase when he wanted today prior to arrival due to he had already received this morning. He reports that he has been having some nasal congestion / rhinorrhea with sinus pressure pain and throat discomfort for the past 2 days worse today. He reports that due to his Claritin and Flonase being scheduled they do not want to let him have it when he wanted. He denies any fevers, dizziness, ear pain, trouble swallowing breathing, cough, chest pain or shortness of breath, diarrhea constipation, nausea vomiting or abdominal pain, rashes, recent travel or sick contacts or any other symptoms complaints or concerns. Reports he had a negative COVID test at the [facility] prior to arrival. MD elicited complaint: sore throat, rhinorrhea and nasal congestion Onset (ago): day(s) (2) Consistency: constant Severity: mild Description of mucous: clear, watery and yellow Able to tolerate fluids by mouth: Yes Exacerbating factors: swallowing, changing head position and leaning forward Relieving factors: nothing Associated symptoms: headache, rhinorrhea, nasal congestion and sore throat Treatments prior to arrival: none Related Data Home Medications Medication Instructions Recorded Confirmed lithium carbonate 300 mg 2 tab PO BEDTIME 03/14/22 03/14/22 tablet,extended release Previous Rx's Medication Instructions Recorded benztropine 0.5 mg tablet 0.5 mg PO BID 30 days #60 tabs 12/29/21 oxcarbazepine 300 mg tablet 300 mg PO TID 30 days #90 tabs 12/29/21 paliperidone palmitate 234 mg/1.5 234 mg (1.5 mL) IM Q28D 30 days #3 12/29/21 mL intramuscular syringe (Invega mL Sustenna) perphenazine 16 mg tablet 16 mg PO BID 30 days #60 tabs 12/29/21 acetaminophen 500 mg tablet 1,000 mg PO QID PRN pain #30 tabs 08/16/22 cyclobenzaprine 5 mg tablet 5 mg PO TID PRN muscle spasm #10 08/16/22 tabs ibuprofen 600 mg tablet 600 mg PO Q6H PRN pain #20 tabs 08/16/22 fluticasone propionate 50 2 spray intranasal BID PRN nasal 10/21/22 mcg/actuation nasal congestion #16 grams spray,suspension (Children's Flonase Allergy Relief) loratadine 10 mg tablet (Claritin) 10 mg PO BID PRN allergies #60 tabs 10/21/22 Allergies Allergy/AdvReac Type Severity Reaction Status Date / Time Seasonal Allergies Allergy Unknown Verified 12/20/21 12:46 Review of Systems Review of Systems: Constitutional : No Weight loss, No Fever, No Chills, No Night Sweats, No Fatigue, No Malaise ENT/Mouth : No Hearing loss, No Ear Pain, + Nasal Congestion, No Sinus Pain, No Hoarseness, + sore throat, + Rhinorrhea, No Swallowing Difficulty Eyes: No Eye Pain, No Swelling, No Redness, No Foreign Body, No Discharge, No Vision Changes Cardiovascular : No Chest Pain, No SOB, No Dyspnea on Exertion, No Orthopnea, No Edema, No Palpitations Respiratory : No Cough, No Sputum, No Wheezing, No Smoke Exposure, No Dyspnea Gastrointestinal : No Nausea, No Vomiting, No Diarrhea, No Constipation, No abdominal Pain, No Hematochezia, No Melena Genitourinary : no irregular bleeding, No Dysuria, No Urinary Frequency, No Hematuria, No Urinary Incontinence, No Urgency, No Flank Pain, No Urinary Flow Changes, No Hesitancy Musculoskeletal : No joint pain, No Myalgias, No Joint Swelling Skin : No Skin Lesions, No rash Neuro : No Weakness, No Numbness, No Paresthesias, No Loss of Consciousness, No Dizziness, No Headache Psych : No Anxiety/Panic, No Depression, No SI/HI/AH/VH, No Social Issues, Heme/Lymph: No Bruising, No Bleeding,No Lymphadenopathy Endocrine : No Polyuria, No Polydipsia, No Temperature Intolerance Yes all other systems are reviewed and are negative [facility] Past Medical History Attestation statement: The following information was validated with the patient. Source: old records reviewed and nursing notes reviewed Medical History Bipolar 1 disorder, manic, moderate COVID-19 Depression Schizoaffective disorder Schizophrenia Social History Social History Household Members: Other Household Members Other:: halfway residents and staff Housing: Other Housing Other:: Skilled Nursing Alcohol intake: never Patient Tobacco Use Status: Never used Tobacco Advance Directives: No Advance Directives Information Provided: Yes service: No Physical Exam Vital Signs: Vital Signs: Last Vital Signs Temp 98.2 F 10/21/22 16:32 Pulse 89 10/21/22 16:32 Resp 18 10/21/22 16:32 BP 122/78 10/21/22 16:32 Pulse Ox 98 10/21/22 16:32 O2 Del Method Room Air 10/21/22 16:32 BMI result Body Mass Index 31.8 Vital signs reviewed. Blood pressure normal. Pulse normal. Respiration normal. Oxygen normal. Temperature normal. Appearance: Alert. Oriented X3. No acute distress. Head: Normal external exam. Normocephalic. Atraumatic. Eyes: PERRLA. EOMI. Conjunctiva and sclera normal. Eyelids normal. ENT: EAC normal. TM's Normal. Pharynx normal. Uvula midline. Moist mucous membranes. No lesions/ulcerations or masses noted on the tongue. Normal voice. No trismus noted. No drooling noted. No muffled voice noted. Neck: Normal inspection. Neck supple. FROM. No adenopathy. Thyroid Normal. No meningeal signs. CVS: Normal heart rate and rhythm. Heart sound normal. Pulses normal throughout. No murmurs/rales/gallops. Respiratory: No respiratory distress. Painless inspiration. Breath sounds normal. No wheezes/rales/rhonchi noted. Chest nontender. No accessory muscle usage noted or decreased air movement noted. Abdomen: Soft and nontender. Back: Full range of motion noted. Nontender. Skin: Skin warm and dry. Normal skin color. Normal skin turgor. No rashes/lesions/lacerations noted. Extremities: Extremities exhibit normal range of motion and nontender. Neuro: Oriented X 3. No motor deficit. No sensory deficit. Reflexes normal. Normal steady gait. No focal neuro deficits noted. CN's II-XII intact bilaterally? Vascular: + radial pulses. Normal cap refill. No cyanosis noted to upper extremity nails Course Course Course Narrative: This patient presents with Headaches, nasal congestion /rhinorrhea, sore throat and sinus pressure pain history of seasonal allergies currently on Flonase and Claritin although not able to take as needed due to it is scheduled due to [facility] is [facility] a [facility] due to history of schizophrenia. Social most likely sinusitis versus Seasonal allergies. Also concern for viral syndrome COVID RSV or the flu. Presentation not consistent with acute bacterial pneumonia, influenza, asthma, transient airway hyperresponsiveness. Presentation not consistent with chronic causes of cough (including GERD, asthma, postnasal discharge, medication side effect, CHF, lung cancer or mass). Will obtain COVID/RSV/ flu swab and rapid strep if negative will DC home with Claritin and Flonase to be taken as needed not only scheduled and instructions to follow-up with PCP and to return if any new or worsening symptoms. Patient understands agrees with this plan. Medications Administered Discontinued Medications Generic Name Dose Route Start Last Admin Trade Name Freq PRN Reason Stop Dose Admin Fluticasone Propionate 2 spray 10/21/22 16:48 10/21/22 17:37 Fluticasone Propionate Nasal 16 Gm [place] NOSTRIL-B 10/21/22 16:49 2 spray ONCE ONE Administration Loratadine 10 mg 10/21/22 16:48 10/21/22 17:37 Loratadine 10 Mg Tablet PO 10/21/22 16:49 10 mg ONCE ONE Administration Medical Decision Making Medical Decision Making MDM Narrative: see course Differential Diagnosis Differential Diagnoses: The differential diagnosis associated with the presentation includes see course Lab Data MDM Lab Attestation statement: I reviewed the patient's lab results. Labs: Lab Results 10/21/22 10/21/22 Range/Units 16:54 16:54 Influenza Type A (PCR) NEGATIVE (Negative) Influenza Type B (PCR) NEGATIVE (Negative) RSV RNA Qual (PCR) NEGATIVE (Negative) SARS-CoV-2 RNA (RT-PCR) NEGATIVE (Negative) S. pyogenes GrpA LANNY Negative (Negative) Independent Historian Clinical information obtained from an independent historian. History obtained from or confirmed by: EMS External Record Review External record reviewed: Inpatient record, Office record, Outpatient record, Prior outpatient labs, Prior outpatient radiology, Primary care record and Outside ED record All prior labs/ imaging/ EKG that is in our system accessible reviewed by myself Prescription Management I considered prescription management with: Antibiotic ( although patient with seasonal allergies non febrile and reports this is normal seasonal allergies therefore less likely especially if rapid strep negative will not need antibiotic) Chronic Conditions Patient?s care impacted by: Other ( schizophrenia seasonal allergies) Social Determinants Patient?s care significantly limited by Social Determinants of Health including: Low income and Other Social Determinant of Health Discharge Plan Discharge Clinical Impression: Acute seasonal allergic rhinitis Patient Disposition: Home, Self-Care Instructions: Allergic Rhinitis (DC) Prescriptions: New loratadine [Claritin] 10 mg tablet 10 mg PO BID PRN (Reason: allergies) Qty: 60 0RF fluticasone propionate [Children's Flonase Allergy Rlf] 50 mcg/actuation spray,suspension 2 spray intranasal BID PRN (Reason: nasal congestion) Qty: 16 0RF Rx Instructions: administer into each nostril No Action lithium carbonate 300 mg tablet extended release 2 tab PO BEDTIME Invega Sustenna 234 mg/1.5 mL Syringe 234 mg IM Q28D 30 Days Qty: 3 0RF Rx Instructions: last received 12/19/21 benztropine 0.5 mg Tablet 0.5 mg PO BID 30 Days Qty: 60 0RF oxcarbazepine 300 mg Tablet 300 mg PO TID 30 Days Qty: 90 0RF perphenazine 16 mg tablet 16 mg PO BID 30 Days Qty: 60 0RF acetaminophen 500 mg tablet 1,000 mg PO QID PRN (Reason: pain) Qty: 30 0RF ibuprofen 600 mg tablet 600 mg PO Q6H PRN (Reason: pain) Qty: 20 0RF cyclobenzaprine 5 mg tablet 5 mg PO TID PRN (Reason: muscle spasm) Qty: 10 0RF Referrals: [facility] [Primary Care Provider] - 2 days
[2022-10-21 18:33] LABS: Influenza A PCR NEGATIVE (Negative); Influenza B PCR NEGATIVE (Negative); Resp Syncy Virus RNA Qual PCR NEGATIVE (Negative); SARS COV2 PCR INHOUSE NEGATIVE (Negative)
--- NOTE | 2022-10-21 18:43 | PC.NURSE ---
attempted to reach pt's skilled nursing for discharge with no answer
--- NOTE | 2022-10-21 19:07 | PC.NURSE ---
patient nursing home tried contacted with no answer, research group director Mary contacted x2 with no answer. patient mom was contacted and states she will be in contact with patient to help get him in touch with nursing home for d/c
== END 2022-10-21 19:43 | disposition home or self-care (01) ==
PROVIDERS: Physician Assistant Medical; Emergency Provider Emergency Medicine
DX: J30.2 Other seasonal allergic rhinitis (principal); J02.9 Acute pharyngitis, unspecified; Z20.822 Contact with and (suspected) exposure to COVID-19; Z20.828 Contact with and (suspected) exposure to other viral communicable diseases
CPT/HCPCS: 0241U; 87651; 99283

== ENCOUNTER 2023-01-18 09:05 | Outpatient (REF) | payer MEDICAID, SELFPAY ==
[2023-01-18 10:26] LABS: Thyroid Stimulating Hormone 1.64 uIU/mL (0.32-4.0)
[2023-01-18 10:36] LABS: Anion Gap 16 (12-20); Blood Urea Nitrogen 9 mg/dL (9-16); Calcium 9.6 mg/dL (8.4-10.2); Carbon Dioxide 25 mmol/L (22-29); Chloride 103 mmol/L (96-108); Estimated Glomerular Filt Rate > 60; Glucose Random 147 mg/dL (60-115); Lithium 0.76 mmol/L (0.60-1.20); Potassium 4.2 mmol/L (3.3-5.1); Sodium 140 mmol/L (135-145)
== END 2023-01-18 09:06 | disposition home or self-care (01) ==
LOC: HO.LAB 09:05
PROVIDERS: PCP General Practice; Visit Provider Clinical Nurse Specialist Psychiatric/Mental Health, Adult
DX: Z79.899 Other long term (current) drug therapy (principal)
CPT/HCPCS: 36415; 80048; 80178; 84443

== ENCOUNTER 2023-09-27 10:47 | Outpatient (REF) | payer MEDICAID, SELFPAY ==
[2023-09-27 12:16] LABS: Lithium 0.94 mmol/L (0.60-1.20)
[2023-09-27 12:27] LABS: Anion Gap 11 (12-20); Blood Urea Nitrogen 7 mg/dL (9-16); Calcium 9.7 mg/dL (8.4-10.2); Carbon Dioxide 27 mmol/L (22-29); Chloride 105 mmol/L (96-108); Estimated Glomerular Filt Rate > 60; Glucose Random 118 mg/dL (60-115); Potassium 4.1 mmol/L (3.3-5.1); Sodium 139 mmol/L (135-145)
[2023-09-27 12:44] LABS: Thyroid Stimulating Hormone 1.47 uIU/mL (0.32-4.0)
== END 2023-09-27 10:48 | disposition home or self-care (01) ==
LOC: HO.LAB 10:47
PROVIDERS: PCP General Practice; Visit Provider Clinical Nurse Specialist Psychiatric/Mental Health, Adult
DX: Z79.899 Other long term (current) drug therapy (principal)
CPT/HCPCS: 36415; 80048; 80178; 84443